=== PATIENT | female | born 1950 | race Caucasian/White ===

== ENCOUNTER 2023-06-30 14:52 | Outpatient (CLI) | payer MEDICARE, BC, SELFPAY ==
[2023-06-30 15:18] LABS: Basophils Absolute Auto 0.1 K/mm3 (0.0-0.1); Eosinophils Absolute Auto 0.1 K/mm3 (0-0.3); Eosinophils Percent Auto 2.7 % (0-4.4); Hematocrit 47.2 % (37.0-47.0); Hemoglobin 16.4 g/dL (12.0-15.0); Immature Granulocyte Absolute 0.02 K/mm3 (0.00-0.031); Immature Granulocyte Percent A 0.4 % (0-0.5); Lymphocytes Absolute Auto 0.96 K/mm3 (0.9-3.2); Lymphocytes Percent Auto 18.6 % (18.3-44.2); Mean Corpuscular HGB Conc 34.7 g/dl (32-36); Mean Corpuscular Volume 100.6 fl (80-100); Mean Platelet Volume 10.3 fl (7.4-10.4); Monocytes Absolute Auto 0.7 K/mm3 (0.1-0.6); Neutrophils Absolute Auto 3.3 K/mm3 (1.3-6.7); Neutrophils Percent Auto 63.3 % (45.5-73.1); Platelet Count Result 135 k/mm3 (150-375); Red Blood Count 4.69 M/mm3 (4.2-5.4); Red Cell Distribution Width 13.2 % (11.5-14.5); White Blood Count 5.2 K/mm3 (4.5-10.0)
[2023-06-30 16:41] LABS: Iron 107 ug/dL (37-170)
[2023-06-30 16:44] LABS: Alanine Aminotransferase 37 U/L (6-35); Albumin Level 4.4 g/dL (3.5-5.1); Alkaline Phosphatase 82 U/L (38-126); Anion Gap 5 mmol/L (8-16); Aspartate Amino Transferase 56 U/L (14-36); Bilirubin,Total 0.7 mg/dL (0.2-1.3); Blood Urea Nitrogen 13 mg/dL (7-17); Calcium 9.6 mg/dL (8.4-10.2); Carbon Dioxide 34 mmol/L (22-30); Chloride 99 mmol/L (98-107); Estimated Glomerular Filt Rate > 60; Glucose 114 mg/dL (65-110); Potassium 4.2 mmol/L (3.4-5.0); Sodium 138 mmol/L (137-145)
[2023-06-30 16:50] LABS: Percent Iron Saturation 30 % (20-50)
[2023-06-30 17:53] LABS: Folic Acid > 20.0 ng/mL (2.76->20); Vitamin B12 > 1000.0 pg/mL (239-931)
[2023-07-03 10:10] LABS: Methylmalonic Acid 130 nmol/L (87-318)
[2023-07-03 12:34] LABS: Erythropoietin (EPO) 39.2 mIU/mL (2.6-18.5)
[2023-07-05 15:31] LABS: CALR Exon 9 Mutation Not Detected (Not Detected); CSF3R Exon 14/17 Mutation Not Detected (Not Detected); JAK2 Exon 12 Mutation Not Detected (Not Detected); JAK2 V617F Mutation Not Detected (Not Detected); MPL Exon 10 Mutation Not Detected (Not Detected); Specimen Source Blood
== END 2023-06-30 14:53 | disposition home or self-care (01) ==
LOC: ANHLAB 14:56
PROVIDERS: PCP Internal Medicine; Visit Provider Internal Medicine Hematology & Oncology
DX: D75.1 Secondary polycythemia (principal); D69.59 Other secondary thrombocytopenia
CPT/HCPCS: 36415; 80053; 81219; 81270; 81279; 81339; 81479; 82607; 82668; 82728; 82746; 83540; 83550; 83921; 85025; 86023

== ENCOUNTER 2023-07-15 07:34 | Outpatient (CLI) | payer MEDICARE, BC, SELFPAY ==
--- NOTE | ~2023-07-15 | US_ITS ---
Abdominal Sonogram: Real-time sonographic imaging of the abdomen was performed. Clinical History: Secondary thrombocytopenia Findings: The liver appears echogenic, with no evidence of mass lesion or bile duct dilatation. Main portal vein demonstrates normal direction of flow. The spleen is normal in size without evidence of focal lesion. The gallbladder is partially distended with probable small gallstones. The common bile duct measures 5 mm. The visualized pancreas is unremarkable. There is a 3.7 cm aneurysm of the dist al abdominal aorta. The right kidney measures 11.0 cm in length and the left kidney measures 8.9 cm. There is no hydronephrosis or renal calculus. Impression: Diffuse fatty infiltration of the liver. 3.7 cm aneurysm of the distal abdominal aorta. Cholelithiasis. Reviewed, dictated and finalized at [facility]. Impression: Diffuse fatty infiltration of the liver. 3.7 cm aneurysm of the distal abdominal aorta. Cholelithiasis.
== END 2023-07-15 07:35 | disposition home or self-care (01) ==
PROVIDERS: PCP Internal Medicine; Visit Provider Internal Medicine Hematology & Oncology
DX: D69.59 Other secondary thrombocytopenia (principal); K80.20 Calculus of gallbladder without cholecystitis without obstruction; K76.0 Fatty (change of) liver, not elsewhere classified; I71.40 Abdominal aortic aneurysm, without rupture, unspecified
CPT/HCPCS: 76700

== ENCOUNTER 2023-12-11 12:13 | Outpatient (CLI) | payer MEDICARE, BC, SELFPAY ==
[2023-12-11 12:27] LABS: Basophils Percent Auto 0.7 % (0.2-1.2); Eosinophils Absolute Auto 0.1 K/mm3 (0-0.3); Eosinophils Percent Auto 2.2 % (0-4.4); Hematocrit 49.7 % (37.0-47.0); Hemoglobin 16.4 g/dL (12.0-15.0); Immature Granulocyte Absolute 0.01 K/mm3 (0.00-0.031); Immature Granulocyte Percent A 0.2 % (0-0.5); Lymphocytes Absolute Auto 0.83 K/mm3 (0.9-3.2); Lymphocytes Percent Auto 15.2 % (18.3-44.2); Mean Corpuscular Volume 102.9 fl (80-100); Mean Platelet Volume 9.9 fl (7.4-10.4); Monocytes Absolute Auto 0.7 K/mm3 (0.1-0.6); Monocytes Percent Auto 12.7 % (2.6-8.5); Neutrophils Absolute Auto 3.8 K/mm3 (1.3-6.7); Platelet Count Result 124 k/mm3 (150-375); Red Blood Count 4.83 M/mm3 (4.2-5.4); Red Cell Distribution Width 13.3 % (11.5-14.5); White Blood Count 5.5 K/mm3 (4.5-10.0)
[2023-12-11 12:32] LABS: Blood Urea Nitrogen 13 mg/dL (8-26); Carbon Dioxide 33 mmol/L (22-30); Chloride 98 mmol/L (98-109); Estimated Glomerular Filt Rate > 60; Glucose 146 mg/dL (70-105); Ionized Calcium (POC) 1.21 mmol/L (1.11-1.31); Potassium 4.1 mmol/L (3.5-4.9); Sodium 140 mmol/L (138-146)
[2023-12-11 16:35] LABS: Alanine Aminotransferase 23 U/L (6-35); Albumin Level 4.3 g/dL (3.5-5.1); Alkaline Phosphatase 70 U/L (38-126); Anion Gap 8 mmol/L (8-16); Aspartate Amino Transferase 43 U/L (14-36); Bilirubin,Total 0.9 mg/dL (0.2-1.3); Blood Urea Nitrogen 14 mg/dL (7-17); Calcium 9.8 mg/dL (8.4-10.2); Carbon Dioxide 33 mmol/L (22-30); Chloride 99 mmol/L (98-107); Estimated Glomerular Filt Rate > 60; Glucose 146 mg/dL (65-110); Potassium 4.2 mmol/L (3.4-5.0); Sodium 140 mmol/L (137-145)
== END 2023-12-11 12:14 | disposition home or self-care (01) ==
LOC: ANHLAB 12:16
PROVIDERS: PCP Internal Medicine; Visit Provider Internal Medicine Hematology & Oncology
DX: D75.1 Secondary polycythemia (principal)
CPT/HCPCS: 36415; 80047; 80053; 85025

== ENCOUNTER 2024-05-05 14:53 | Outpatient (CLI) | payer MEDICARE, BC, SELFPAY ==
[2024-05-05 15:05] LABS: Basophils Absolute Auto 0.1 K/mm3 (0.0-0.1); Basophils Percent Auto 0.9 % (0.2-1.2); Eosinophils Absolute Auto 0.1 K/mm3 (0-0.3); Eosinophils Percent Auto 2.4 % (0-4.4); Hematocrit 47.9 % (37.0-47.0); Hemoglobin 15.9 g/dL (12.0-15.0); Immature Granulocyte Absolute 0.01 K/mm3 (0.00-0.031); Immature Granulocyte Percent A 0.2 % (0-0.5); Lymphocytes Absolute Auto 1.06 K/mm3 (0.9-3.2); Lymphocytes Percent Auto 19.5 % (18.3-44.2); Mean Corpuscular HGB Conc 33.2 g/dl (32-36); Mean Corpuscular Hemoglobin 33.8 pg (26-34); Mean Corpuscular Volume 101.7 fl (80-100); Mean Platelet Volume 10.1 fl (7.4-10.4); Monocytes Absolute Auto 0.8 K/mm3 (0.1-0.6); Monocytes Percent Auto 15.3 % (2.6-8.5); Neutrophils Absolute Auto 3.4 K/mm3 (1.3-6.7); Neutrophils Percent Auto 61.7 % (45.5-73.1); Platelet Count Result 126 k/mm3 (150-375); Red Blood Count 4.71 M/mm3 (4.2-5.4); Red Cell Distribution Width 13.8 % (11.5-14.5); White Blood Count 5.4 K/mm3 (4.5-10.0)
== END 2024-05-05 14:54 | disposition home or self-care (01) ==
LOC: ANHLAB 14:55
PROVIDERS: PCP Internal Medicine; Visit Provider Internal Medicine Hematology & Oncology
DX: D75.1 Secondary polycythemia (principal)
CPT/HCPCS: 36415; 85025

== ENCOUNTER 2025-03-23 14:36 | Outpatient (CLI) | payer MEDICARE, BC, SELFPAY ==
--- OUTSIDE RECORDS SUMMARY | 2025-03-23 14:40 | XMS_ITS | Clinical Summary ---
Author Organization [facility] Address [address] [place] [id number] Care Team Providers Care Energy Management Specialist Name Role Phone Unavailable Primary Care Provider Unavailabl e Social History Tobacco Use Types Packs/Day Years Used Date Smoking Tobacco: Never Assessed Comments Unknown Sex and Gender Information Value Date Recorded Sex Assigned at Not on file Legal Sex Female 8:01 PM CDT Gender Identity Not on file Sexual Orientation Not on file Plan of Treatment Health Maintenance Due Date Last Done Comments Colorectal Cancer Screening Colonoscopy (10 Years) 1950 Hepatitis C 1967 DTaP, Tdap and Td Vaccines ( 1 - Tdap) 1968 Pneumococcal Vaccine: 50+ Ye ars (1 of 1 - PCV) 1999 Zoster Vaccines (1 of 2) 1999 Dexa Scan (General) 2014 RSV Immunization or 60+ Years (1 - 1-dose 75+ series) 2024 COVID-19 Vaccine ( - 2023-2 5 season) 2024 Meningococcal B Vaccine Aged Out No l onger eligible based on patient's age to complete this topic Meningococcal Vaccine Aged Out No chetna felicita eligible based on patient's age to complete this topic RSV Immunizations Under 20 Months Aged Out No longer eligible based on patient's age to complete this topic
--- OUTSIDE RECORDS SUMMARY | 2025-03-23 14:41 | XMS_ITS | Referral Summary ---
Author Organization [facility] [address] [place] [id number] Care Team Providers Care Purchasing Intern Name Role Phone Reinaldo Espinosa MD Primary Care Provider [phone] Yannick Santiago MD Unavailable Encounters Date Type Department Care Team Description 01/11/2025 8:10 AM WEATHER ANCHOR - 01/12/2025 1:55 PM WEATHER ANCHOR [place] [address] Yannick Santiago MD Leg pain Discharge Disposition: Discharge to home or self care 01/11/2025 10:30 AM WEATHER ANCHOR - 01/11/2025 12:30 PM [facility] [address] [place] [address] Yannick Santiago MD ANGIOGRAPHY - BILATERAL EXTREMITY S&I [id number] from Last 3 Months Allergies Active Allergy Reactions Criticality Noted Date Comments Codeine Mental status changes Low Reaction: CONFUSION, , Propoxyphene-Acetami nophen Stomach upset Medium Reaction: GI UPSET, , Medications clopidogreL (PLAVIX) 75 mg tablet Take 1 tablet (75 mg total) by mouth every morning Active metoprolol tartrate (LOPRESSOR) 25 mg immediate release tablet Take 1 tablet (25 mg total) by mouth 2 (two) times a day Active atorvastatin (LIPITOR) 10 mg tablet Take 1 tablet (10 mg total) by mouth nightly Active meclizine (ANTIVERT) 25 mg tablet Take 1 tablet (25 mg total) by mouth daily Active azaTHIOprine (IMURAN) 50 mg tablet Take 2 tablets (100 mg total) by mouth every morning Active vitamin B complex capsule Take 1 capsule by mouth daily Active multivitamin tabletIndicatio ns:Vitamin Deficiency Prevention Take 1 tablet by mouth daily Active cholecalciferol (VITAMIN D-3) 2000 unit tablet Take 1 tablet (2,000 Units total) by mouth daily Active ALPRAZolam (XANAX) 0.5 mg tablet Take 1 tablet (0.5 mg total) by mouth 2 (two) times a day as needed for sleep or anxiety 0 Active albuterol HFA (PROVENTIL HFA,VENTOLIN HFA,PROAIR HFA) 90 mcg/actuation inhaler Inhale 2 puffs every 6 (six) hours as needed for shortness of breath or wheezing Active nitroglycerin (NITROSTAT) 0.[address] 1 tablet (0.4 mg total) under the tongue every 5 (five) minutes as needed for chest pain 5 Active acetaminophen (TYLENOL) 500 mg tablet Take 1 tablet (500 mg total) by mouth every 6 (six) hours as needed for pain Active aspirin 81 mg enteric coated tabletIndicatio ns:cardiovascul ar disease Take 1 tablet (81 mg total) by mouth daily 30 tablet 11 4 08/26/20 25 Active budesonide-form oteroL (SYMBICORT) 160-4.5 mcg/actuation inhaler Inhale 2 puffs 2 (two) times a day [address] (PROTONIX) 40 mg EC tablet Take 1 tablet (40 mg total) by mouth daily 5 Active Active Problems Problem Noted Date Diagnosed Date PAD (peripheral artery disease) 01/11/2025 Leg pain 12/20/2024 CAD in [place] artery 08/25/2024 CAD (coronary artery disease) 08/24/2024 Abnormal stress test 08/18/2024 Malignant neoplasm of lung 04/11/2015 Lung mass 11/01/2013 Stenosis of carotid artery 01/04/2011 Social History Tobacco Use Types Packs/Day Years Used Date Smoking Tobacco: Former Smokeless Tobacco: Never Tobacco Cessation:Counseling Given: Not Answered AUDIT-C Answer Date Recorded Q1: How often do you have a drink containing alcohol? Never 01/11/2025 Q2: How many drinks containi ng alcohol do you have on a typical day when you are drinking? Patient does not drink Q3: How often do you have si x or more drinks on one occasion? Never 01/11/2025 Personal Safety Answer Date Recorded Have you ever been in or are you currently in a harmful physical or emotional relationship or is someone making you feel afraid or unsafe? Denies 01/11/2025 Comments No Sex and Gender Information Value Date Recorded Sex Assigned at Not on file Legal Sex Female 1:58 AM WEATHER ANCHOR Gender Identity Not on file Sexual Orientation Not on file Last Filed Vital Signs Vital Sign Reading Time Taken Comments Blood Pressure 149/93 01/12/2025 8:29 AM WEATHER ANCHOR Pulse 73 01/12/2025 8:29 AM WEATHER ANCHOR Temperature 37.2 C (99 F) 01/12/2025 8:29 AM WEATHER ANCHOR Respiratory Rate 19 01/12/2025 8:29 AM WEATHER ANCHOR Oxygen Saturation 90% 01/12/2025 8:29 AM WEATHER ANCHOR Inhaled Oxygen Concentration - - Weight 93.9 kg (207 lb 0.2 oz) 01/12/2025 5:19 A M WEATHER ANCHOR Height 175.3 cm (5' 9 ) 01/11/2025 8:19 AM WEATHER ANCHOR Body Mass Index 30.57 01/11/2025 8:19 AM WEATHER ANCHOR Plan of Treatment Not on file Medical Devices Implanted Type Area Customer Care Professional Device Identifier Shelf Expiration Date Model / Serial / Lot [employer] Stent Drug Eluting S Megatron Mr [id number] - [id number] Implanted:Qty: 1 on 08/24/2024 by Yannick Santiago MD at [facility] [employer] 06/02/2025 [id number] / / [id number] Procedures Procedure Name Priority Date/Time Associated Diagnosis Comments CTA ABDOMINAL AORTA AND BILATERAL ILIOFEMORAL RUNOFF IP Routine 01/12/2025 7:51 AM WEATHER ANCHOR EGFR Routine 01/12/2025 5:57 AM WEATHER ANCHOR BASIC METABOLIC PANEL Routine 01/12/2025 5:57 AM WEATHER ANCHOR PERIPHERAL RUN OFF CATH Routine 01/11/2025 11:21 AM WEATHER ANCHOR Leg pain ECG 12-LEAD Routine 01/11/2025 8:43 AM WEATHER ANCHOR from Last 3 Months Results * CTA Abdominal Aorta And Bilateral Iliofemoral Runoff (01/12/2025 7:51 AM WEATHER ANCHOR) Anatomical Region Laterality Modality Body Bilateral Computed Tomogra phy 01/13/2025 9:22 AM WEATHER ANCHOR Impressions 01/13/2025 9:22 AM WEATHER ANCHOR 1. Right lower extremity: Right iliac stent occluded numerous iliac collaterals reconstitute common femoral and profunda arteries which also collateralize the distal SFA which is occluded from its origin to near the adductor canal level. Single vessel runoff via the posterior tibial artery. 2. Left lower extremity: Similar changes in the anterior tibial and peroneal arteries as on the right. Posterior tibial artery is less well opacified than on the right without occlusions with ankle crossing. Electronically signed by: Carlos Enrique Rodriguez M.D. Narrative 01/13/2025 9:22 AM WEATHER ANCHOR EXAMINATION: CT ANGIOGRAPHY OF THE ABDOMEN, PELVIS, AND LOWER EXTREMITIES WITH CONTRAST HISTORY: Peripheral artery disease TECHNIQUE: CT angiography of the abdomen, pelvis, and lower extremities was performed following the uneventful intravenous administration of 119 ml Optiray-350. Vascular 3D images were generated on a dedicated workstation and also reviewed. FINDINGS: No prior studies are available for comparison. VASCULAR FINDINGS: Abdominal Aorta and Branches: Celiac axis: 70-80% stenosis SMA: 50-60% stenosis VALERIA: 70-80% stenosis Right renal vessels: 70% ostial stenosis Left renal vessels: no significant stenosis Infrarenal aorta: Aneurysm with mural thrombus and dense calcification as noted.. Pelvic Vessels: R. Common iliac artery: no significant stenosis R. External iliac artery: Occlusion including the stent noted. R. Internal iliac artery: no significant stenosis L. Common iliac artery: no significant stenosis L. External iliac artery: no significant stenosis L. Internal iliac artery: no significant stenosis Right Lower Extremity: R. Common femoral artery: Reconstituted from collaterals R. Profunda femoris artery: Reconstituted from collaterals R. Superficial femoral artery: Occluded in the groin to the abductor canal with some retrograde opacification distally due to collaterals. R. Popliteal artery: no significant stenosis R. Anterior tibial artery: Occludes distally R. Tibioperoneal trunk: no significant stenosis R. Posterior tibial artery: no significant stenosis crosses the ankle R. Peroneal artery: Atretic R. Dorsalis pedis artery: Occluded Left Lower Extremity: L. Common femoral artery: no significant stenosis L. Profunda femoris artery: no significant stenosis L. Superficial femoral artery: no significant stenosis L. Popliteal artery: no significant stenosis L. Anterior tibial artery: Occludes distally L. Tibioperoneal trunk: no significant stenosis L. Posterior tibial artery: no significant stenosis L. Peroneal artery: Atretic distally L. Dorsalis pedis artery: Occluded NON-VASCULAR FINDINGS: Lung bases are unremarkable. The liver, spleen, adrenal glands, pancreas, and kidneys are unremarkable. There is small calculi and biliary sludge layering in the gallbladder. There are no acute gallbladder wall changes. There is a small abdominal aortic aneurysm with mural thrombus in the infrarenal level maximum diameter 34 mm bowel pattern is unremarkable. There are scattered sigmoid diverticula. Procedure Note Carlos Enrique Rodriguez MD - 01/13/2025 EXAMINATION: CT ANGIOGRAPHY OF THE ABDOMEN, PELVIS, AND LOWER EXTREMITIES WITH CONTRAST HISTORY: Peripheral artery disease TECHNIQUE: CT angiography of the abdomen, pelvis, and lower extremities was performed following the uneventful intravenous administration of 119 ml Optiray-350. Vascular 3D images were generated on a dedicated workstation and also reviewed. FINDINGS: No prior studies are available for comparison. VASCULAR FINDINGS: Abdominal Aorta and Branches: Celiac axis: 70-80% stenosis SMA: 50-60% stenosis VALERIA: 70-80% stenosis Right renal vessels: 70% ostial stenosis Left renal vessels: no significant stenosis Infrarenal aorta: Aneurysm with mural thrombus and dense calcification as noted.. Pelvic Vessels: R. Common iliac artery: no significant stenosis R. External iliac artery: Occlusion including the stent noted. R. Internal iliac artery: no significant stenosis L. Common iliac artery: no significant stenosis L. External iliac artery: no significant stenosis L. Internal iliac artery: no significant stenosis Right Lower Extremity: R. Common femoral artery: Reconstituted from collaterals R. Profunda femoris artery: Reconstituted from collaterals R. Superficial femoral artery: Occluded in the groin to the abductor canal with some retrograde opacification distally due to collaterals. R. Popliteal artery: no significant stenosis R. Anterior tibial artery: Occludes distally R. Tibioperoneal trunk: no significant stenosis R. Posterior tibial artery: no significant stenosis crosses the ankle R. Peroneal artery: Atretic R. Dorsalis pedis artery: Occluded Left Lower Extremity: L. Common femoral artery: no significant stenosis L. Profunda femoris artery: no significant stenosis L. Superficial femoral artery: no significant stenosis L. Popliteal artery: no significant stenosis L. Anterior tibial artery: Occludes distally L. Tibioperoneal trunk: no significant stenosis L. Posterior tibial artery: no significant stenosis L. Peroneal artery: Atretic distally L. Dorsalis pedis artery: Occluded NON-VASCULAR FINDINGS: Lung bases are unremarkable. The liver, spleen, adrenal glands, pancreas, and kidneys are unremarkable. There is small calculi and biliary sludge layering in the gallbladder. There are no acute gallbladder wall changes. There is a small abdominal aortic aneurysm with mural thrombus in the infrarenal level maximum diameter 34 mm bowel pattern is unremarkable. There are scattered sigmoid diverticula. IMPRESSION: 1. Right lower extremity: Right iliac stent occluded numerous iliac collaterals reconstitute common femoral and profunda arteries which also collateralize the distal SFA which is occluded from its origin to near the adductor canal level. Single vessel runoff via the posterior tibial artery. 2. Left lower extremity: Similar changes in the anterior tibial and peroneal arteries as on the right. Posterior tibial artery is less well opacified than on the right without occlusions with ankle crossing. Electronically signed by: Carlos Enrique Rodriguez M.D. Yannick Santiago MD [facility] [place] PROCEDURES Final Result * eGFR (01/12/2025 5:57 AM WEATHER ANCHOR) eGFR 67 >=60 mL/min/1. 73 m2 Comment: Interpretive Data Reference Interval Normal >/= 90 mL/min/1.73m2 Mildly decreased* 60 - 89 mL/min/1.73m2 Mildly to moderately decreased 45 - 59 mL/min/1.73m2 Moderately to severely decreased 30 - 44 mL/min/1.73m2 Severely decreased 15 - 29 mL/min/1.73m2 Kidney Failure < 15 mL/min/1.73m2 *Relative to young adult level Estimated glomerular filtration rate is determined by the 2020 CKD-EPI equation recommended by the National Kidney Foundation (A Unifying Approach to GFR Estimation: Recommendations of the NKF-ASK Task Force on Reassessing the Inclusion of Race in Diagnosing Kidney Disease, JASN 2020). The CKD-EPI equation should not be used for patients with unstable renal function and has not been validated in children and those over 70. Current interpretive data was last reviewed 2021. Blood 01/12/2025 5:57 AM WEATHER ANCHOR 01/12/2025 6:10 AM WEATHER ANCHOR us Yannick Santiago MD LAB BLOOD ORDERABLES Final Resul t [facility] [id number] [address] Department [place] [address] * Basic metabolic panel (01/12/2025 5:57 AM WEATHER ANCHOR) Sodium 138 135 - 145 mmol/L Potassium, pl 3.9 3.3 - 4.9 mmol/L [facility] Chloride 100 97 - 110 mmol/L [facility] CO2 28 22 - 32 mmol/L [facility] Anion gap 10 2 - 15 mmol/L [facility] BUN 15 6 - 25 mg/dL [facility] Creatinine 0.90 0.60 - 1.10 mg/dL [facility] Glucose 133 70 - 199 mg/dL [facility] Comment: Interpretive Data Fasting glucose >/= 126 mg/dl is diagnostic for diabetes. Fasting is defined as no caloric intake for at least 8 hours. Fasting glucose between 100 mg/dl to 125 mg/dl is diagnostic of prediabetes. In a patient with classic symptoms of hyperglycemia or hyperglycemic crisis, a random glucose >/= 200 mg/dl is diagnostic for diabetes. In the absence of unequivocal hyperglycemia, results should be confirmed by repeat testing. The classification and Diagnosis of Diabetes Diabetes Care 202; 46: S19-S40. Current interpretive data was last revised 2022. Calcium 9.2 8.5 - 10.3 mg/dL [facility] Blood 01/12/2025 5:57 AM WEATHER ANCHOR 01/12/2025 6:10 AM WEATHER ANCHOR us Yannick Santiago MD LAB BLOOD ORDERABLES Final Resul t [facility] [id number] [address] Department [place] [address] * PERIPHERAL RUN OFF CATH (01/11/2025 11:21 AM WEATHER ANCHOR) Anatomical Region Laterality Modality X-Ray Angiograph y 01/11/2025 Narrative 01/12/2025 4:04 PM WEATHER ANCHOR [employer] Job ID: [id number] [employer] Document ID: [id number] Dictated date/time: [id number] BRIEF CLINICAL HISTORY This is a woman who was born on 1950. She has known CAD and PAD. Underwent stenting of the iliac arteries bilaterally in the past. Presenting with a severe rest pain in the right leg. It is noted that the right iliac artery is totally occluded that was noted on cardiac cath performed in August 2024, and today she presents for further AIF and intervention. She is aware of the risks, benefits of the procedure which include, but not limited to an unsuccessful procedure, dissection, bleeding, limb loss, nephropathy, and . PROCEDURE Informed consent was obtained. The patient was brought to the cardiac lab in a postabsorptive state. I administered Versed and fentanyl to sedate her. Trained dedicated personnel is available in the room to monitor for conscious sedation. The sedation time was 56 minutes. The right and left groins were prepped and draped in the usual sterile manner. Lidocaine 1% plain was used for anesthesia. Duplex imaging was used to identify the left common femoral artery and a 5-Tanzanian short sheath was inserted. Then we inserted a fascial pick to perform injection from the aorta. We noted that the left iliac and femoral arteries are patent; however, there was total occlusion from the origin of the right common iliac artery with reconstitution via the internal iliac artery at the femoral level. However, the flow in the femoral artery was very limited, the anatomy of the femoral artery is not clear. Using duplex imaging to identify the right common femoral artery and inserted a using a micropuncture a 5-Tanzanian short sheath. We made permanent record of all duplex images. We were able to go up into the aorta via the right sheath with the [place] Advantage catheter and the angled tipped glide catheter. However, it appeared that we were not in the aortal lumen. We made multiple attempts to recross and get to the lumen. By pressure tracing, it appeared that we were not in the lumen and then we put angiography via the pigtail that came from the left and showed that the right iliac artery is still occluded. At this point, we decided to stop the procedure. She tolerated the procedure well. No apparent complication. The sheaths will be pulled manually at this time. FINAL RECOMMENDATION Will obtain CT angiography of the abdomen up to pelvis and femoral arteries for further anatomical assessment and exploration of other revascularization methods. Thank you very much for allowing me to participate in the care of your patient. If I can be of further assistance, please do not hesitate to contact me. Job ID/Internal Job ID: [id number] us Yannick Santiago MD CV CARDIAC CATH PROCEDURES Final Result * ECG 12 lead (01/11/2025 8:43 AM WEATHER ANCHOR) 01/11/2025 8:43 AM WEATHER ANCHOR Narrative [facility] - 01/11/2025 9:35 AM WEATHER ANCHOR Vent Rate: 64 bpm RR Interval: 935 msec UT Interval: 260 msec QRS Duration: 150 msec QT Interval: 461 msec QTC Interval: 470 msec P-R-T [place]: 104 - -53 - 100 degrees IMPRESSION: ELECTRONIC ATRIAL PACEMAKER RIGHT BUNDLE BRANCH BLOCK LEFT ANTERIOR FASCICULAR BLOCK LEFT VENTRICULAR HYPERTROPHY AND ST-T CHANGE POSSIBLE SEPTAL MYOCARDIAL INFARCTION , OF INDETERMINATE AGE ABNORMAL ECG NO CHANGE FROM PREVIOUS TRACING NOTED Electronically Signed By: Jerson Gonzalez MD us Yannick Santiago MD ECG ORDERABLES Final Result [facility] from Last 3 Months Insurance [place] [address] MEDICARE BLUE [employer]AL [employer] Advance Directives For more information, please contact: [phone] * Full Code (Latest Code Status on File) Date Activated Date Inactivated Comments 01/11/2025 1:27 PM 01/12/2025 6:00 PM * Full Code Date Activated Date Inactivated Comments 08/24/2024 2:31 PM 08/25/2024 7:19 PM Care Teams Purchasing Intern Relationship Specialty Start Date End Date Reinaldo Espinosa MD PCP - General 03/25/17 [place] [id number] [address] Consulting Physician Cardiovascular Disease 08/25/24
--- OUTSIDE RECORDS SUMMARY | 2025-03-23 14:41 | XMS_ITS | Clinical Summary ---
Author Organization [facility] Physician Of [facility] [address] [place] [phone] Care Team Providers Care Wool Spotter Name Role Phone Reinlado Espinosa MD Primary Care Provider [phone] Yannick Santiago MD Unavailable Allergies Active Allergy Reactions Criticality Noted Date [...] disease) 01/11/2025 Leg pain 12/20/2024 CAD in [place] artery 08/25/2024 CAD (coronary artery disease) 08/24/2024 Abnormal stress test 08/18/2024 Malignant neoplasm of lung 04/11/2015 Lung mass 11/01/2013 Stenosis of carotid artery 01/04/2011 Encounters Date Type Department Care Team Description 01/11/2025 10:30 AM BLOCK MECHANIC - 01/11/2025 12:30 PM [facility] Surgery [facility] Cardiac Catheterization Lab [address] [place] [address] Yannick Santiago MD ANGIOGRAPHY - BILATERAL EXTREMITY S&I [id number] 01/11/2025 8:10 AM BLOCK MECHANIC - 01/12/2025 1:55 PM [facility] Hospital Encounter [address] [address] Yannick Santiago MD Leg pain Discharge Disposition: Discharge to home or self care from Last 3 Months Surgical History Surgery Date Site/Laterality Comments CORONARY ARTERY BYPASS GRAFT 11/17/2008 - 11/16/2009 x3 INSERT / REPLACE / REMOVE PACEMAKER 11/17/2008 - 11/16/2009 LUNG LOBECTOMY Bilateral 1999 (right), 2008 (left) - lung cancer HYSTERECTOMY COLONOSCOPY BREAST SURGERY Right fatty tumor CAROTID ENDARTERECTOMY CARDIAC CATHETERIZATION 01/11/2025 Right Procedure: ANGIOGRAPHY - BILATERAL EXTREMITY S&I [id number]; Surgeon: Yannick Santiago MD; Location: [facility]IAC [facility]; Service: Cardiovascular; Laterality: Right; Medical History Medical History Date Comments Cancer (HCC) Lung Motion sickness Hypertension Lung disease COPD (chronic obstructive pu lmonary disease) (HCC) 07/2024 GERD (gastroesophageal reflux disease) Infectious viral hepatitis autoi mmune hepatitis 2000 Abnormal stress test On home oxygen therapy 2 Liters via n/c with activity Arthritis Social History Tobacco Use Types Packs/Day Years [...] on file Legal Sex Female 1:58 AM BLOCK MECHANIC Gender Identity Not on file Sexual Orientation Not on file Obstetrics History Last Filed Vital Signs Vital Sign Reading Time Taken Comments Blood Pressure 149/93 01/12/2025 8:29 AM BLOCK MECHANIC Pulse 73 01/12/2025 8:29 AM BLOCK MECHANIC Temperature 37.2 C (99 F) 01/12/2025 8:29 AM BLOCK MECHANIC Respiratory Rate 19 01/12/2025 8:29 AM BLOCK MECHANIC Oxygen Saturation 90% 01/12/2025 8:29 AM BLOCK MECHANIC Inhaled Oxygen Concentration - - Weight 93.9 kg (207 lb 0.2 oz) 01/12/2025 5:19 A M BLOCK MECHANIC Height 175.3 cm (5' 9 ) 01/11/2025 8:19 AM BLOCK MECHANIC Body Mass Index 30.57 01/11/2025 8:19 AM BLOCK MECHANIC Plan of Treatment Health Maintenance Due Date Last Done Comments Colon Cancer Screening-Colonoscopy 1950 Depression Screening 1950 Hepatitis C Screening 1950 Osteoporosis Screening-Bone Density Scan 1949 Hepatitis B Screening 1967 Zoster Vaccine (1 of 2) 1968 Well Visit 65+ 2014 Influenza Vaccine (Season Ended) 2025 08/25/2020, 09/30/2019, 09/07/2018, Additional history exists Fall Risk Assessment 01/12/2026 01/12/2025 DTaP/Tdap/Td Vaccine (2 - Td or Tdap) 06/10/2026 06/10/2016 Pneumococcal vaccine 65+ Completed 11/05/2016, 12/18 Medical Devices Implanted Type Area Sourcing Consultant Device Identifier Shelf Expiration Date Model / Serial / Lot New KCBX Stent Drug Eluting S [facility] [id number] - [id number] Implanted:Qty: 1 on 08/24/2024 by Yannick Santiago MD at [facility] New KCBX 06/02/2025 [id number] / / [id number] Procedures Procedure Name Priority Date/Time Associated Diagnosis Comments CTA ABDOMINAL AORTA AND BILATERAL ILIOFEMORAL RUNOFF IP Routine 01/12/2025 7:51 AM BLOCK MECHANIC EGFR Routine 01/12/2025 5:57 AM BLOCK MECHANIC BASIC METABOLIC PANEL Routine 01/12/2025 5:57 AM BLOCK MECHANIC PERIPHERAL RUN OFF CATH Routine 01/11/2025 11:21 AM BLOCK MECHANIC Leg pain ECG 12-LEAD Routine 01/11/2025 8:43 AM BLOCK MECHANIC from Last 3 Months Results * CTA Abdominal Aorta And Bilateral Iliofemoral Runoff (01/12/2025 7:51 AM BLOCK MECHANIC) Anatomical Region Laterality Modality Body Bilateral Computed Tomogra phy 01/13/2025 9:22 AM BLOCK MECHANIC Impressions 01/13/2025 9:22 AM BLOCK MECHANIC 1. Right lower extremity: Right iliac stent [...] Enrique Rodriguez M.D. Narrative 01/13/2025 9:22 AM BLOCK MECHANIC EXAMINATION: CT ANGIOGRAPHY OF THE ABDOMEN, PELVIS, [...] Electronically signed by: Carlos Enrique Rodriguez M.D. us Yannick Santiago MD IMG CT PROCEDURES Final Result * eGFR (01/12/2025 5:57 AM BLOCK MECHANIC) eGFR 67 >=60 mL/min/1. 73 m2 Comment: [...] of Race in Diagnosing Kidney Disease, JASN 202). The CKD-EPI equation should not be used for patients with unstable renal function and has not been validated in children and those over 70. Current interpretive data was last reviewed 2021. Blood 01/12/2025 5:57 AM BLOCK MECHANIC 01/12/2025 6:10 AM BLOCK MECHANIC us Yannick Santiago MD LAB BLOOD ORDERABLES Final Resul t Performing Organization Address [facility] Co de Phone Number MEMO TORRES [phone] [address] Department [place] [address] * Basic metabolic panel (01/12/2025 5:57 AM BLOCK MECHANIC) Sodium 138 135 - 145 mmol/L Potassium, pl 3.9 3.3 - 4.9 mmol/L [facility] Chloride 100 97 - 110 mmol/L [facility] CH CO2 28 22 - 32 mmol/L [facility] CH Anion gap 10 2 - 15 mmol/L [facility] CH BUN 15 6 - 25 mg/dL [facility] Creatinine 0.90 0.60 - 1.10 mg/dL [facility] Glucose 133 70 - 199 mg/dL [facility] Comment: Interpretive Data Fasting glucose >/= 126 [...] 2022. Calcium 9.2 8.5 - 10.3 mg/dL [facility] Blood 01/12/2025 5:57 AM BLOCK MECHANIC 01/12/2025 6:10 AM BLOCK MECHANIC Yannick Santiago MD LAB BLOOD ORDERABLES Final Resul t Performing Organization Address City/[facility]/ZIP Co de Phone Number MEMO [facility] [phone] [address] [place] [address] * PERIPHERAL RUN OFF CATH (01/11/2025 11:21 AM BLOCK MECHANIC) Anatomical Region Laterality Modality X-Ray Angiograph y 01/11/2025 Narrative 01/12/2025 4:04 PM BLOCK MECHANIC View and Chew Job ID: [id number] View and Chew Document ID: [id number] Dictated date/time: [id number] BRIEF CLINICAL HISTORY This is a woman [...] the left common femoral artery and a 5-Jordanian short sheath was inserted. Then we inserted [...] and inserted a using a micropuncture a 5-Jordanian short sheath. We made permanent record of all duplex images. We were able to go up into the aorta via the right sheath with the [employer]age catheter and the angled tipped glide [...] to contact me. Job ID/Internal Job ID: [id number] us Yannick Santiago MD CV CARDIAC CATH PROCEDURES Final Result * ECG 12 lead (01/11/2025 8:43 AM BLOCK MECHANIC) 01/11/2025 8:43 AM BLOCK MECHANIC Narrative [facility] - 01/11/2025 9:35 AM BLOCK MECHANIC Vent Rate: 64 bpm RR Interval: 935 msec IA Interval: 260 msec QRS Duration: 150 msec QT Interval: 461 msec QTC Interval: 470 msec P-R-T Monson: 104 - -53 - 100 degrees IMPRESSION: ELECTRONIC ATRIAL PACEMAKER RIGHT BUNDLE BRANCH BLOCK LEFT ANTERIOR FASCICULAR BLOCK LEFT VENTRICULAR HYPERTROPHY AND ST-T CHANGE POSSIBLE SEPTAL MYOCARDIAL INFARCTION , OF INDETERMINATE AGE ABNORMAL ECG NO CHANGE FROM PREVIOUS TRACING NOTED Electronically Signed By: Jerson Gonzalez MD us Yannick Santiago MD ECG ORDERABLES Final Result [facility] from Last 3 Months Insurance MEDICARE [facility] MEDICARE [place] [employer] Advance Directives For more information, please contact: [phone] * Full Code (Latest Code Status on File) Date Activated Date Inactivated Comments 01/11/2025 1:27 PM 01/12/2025 6:00 PM * Full Code Date Activated Date Inactivated Comments 08/24/2024 2:31 PM 08/25/2024 7:19 PM Care Teams Wool Spotter Relationship Specialty Start Date End Date Reinaldo Espinosa MD PCP - General 03/25/17 [place] [id number] [address] Consulting Physician Cardiovascular Disease 08/25/24
--- OUTSIDE RECORDS SUMMARY | 2025-03-23 14:41 | XMS_ITS | Continuity of Care Document ---
Author Organization [facility] Address [address] [place] [address] [place] [address] Phone Care Team Providers Care Blueberry Grower Name Role Phone Logan Harman Unavailable Unavailable Advance Directives Directive Yes / No Effective Date File Name No Information Encounters Encounter Description Practice Location Reason(s) For Visit Diagnoses Date Provider Providers Copied on Encounter [facility], [address], [place], [place], [id number], [place] tel:[phone] [facility] No Information Kimani Ford. [address] [place], [address], [place]. tel:[phone] Family History Family Member Type Diagnosis Age At Onset No Information Payers Payer name Insurance type Covered libertarian ID Authoriza tion(s) No Information Social History [...]
--- OUTSIDE RECORDS SUMMARY | 2025-03-23 14:41 | XMS_ITS ---
Author Organization [facility] Physician Of [facility] [address] [place] [phone] Care Team Providers Care Proposal Coordinator Name Role Phone Reinaldo Espinosa MD Primary Care Provider [phone] Yannick Santiago MD Unavailable Active Problems Problem Noted Date Diagnosed Date PAD (peripheral artery disease) 01/11/2025 Leg pain 12/20/2024 CAD in [place] artery 08/25/2024 CAD (coronary artery disease) 08/24/2024 Abnormal stress test 08/18/2024 Malignant neoplasm of lung 04/11/2015 Lung mass 11/01/2013 Stenosis of carotid artery 01/04/2011 Current Treatment and Therapy Plans No current plan information found. Past Treatment and Therapy Plans No past plan information found. Lifetime Dose Tracking * Chemical Lifetime Dose Automatic Entry Manual Entr y Air kerma at the reference point (Ka,r) 3,417 mGy 0 mGy 3,417 mGy
--- OUTSIDE RECORDS SUMMARY | 2025-03-23 14:41 | XMS_ITS | CONTINUITY OF CARE DOCUMENT ---
Author Name becka jovel Address Unknown Organization [facility] Address [address] [address] [place] [address] Phone [phone] Care Team Providers Care Map Compiler Name Role Phone Yannick Santiago MD Unavailable [phone] Reinaldo Espinosa MD Unavailable Reinaldo Espinosa MD Unavailable [phone] PROBLEMS Condition Status Date Provider Notes CAD S/P CABG; 50-60% LM, 40% LAD, 80% RCA 03/2009 active Alfonso Al CHEST PAIN-04/28 NUC NL-03/25 NUC ISCHEMIA completed - Alfonso Al Dyslipidemia active Alfonso Al RENAL ARTERY STENOSIS 70% LEFT APRIL 2009 active Yannick Santiago MD PALPITATIONS-06/25 HOLTER SR HR 31-116 MOBITZ 2 CHB PVC-PAC completed - Alfonso Al SICK SINUS SYNDROME active Alfonso Magana rg Hypertension active Alfonso Al CAROTID ARTERY DISEASE S/P R CEA 02/25 active Yannick Santiago MD Family History of Sudden Cardiac : completed - Yannick Santiago MD Edema completed - Alfonso Al Dual chamber pm gen change - Biotronik 02/2016 active Yannick Santiago MD Tobacco use, quit active Alfonso Al Leg pain, bilateral completed - Alfonso Al Sleep apnea, obstructive active Alfonso richter PVD - B/L ILIAC STENTS 01/2017 active Alfonso Al S/P CABG x3 (BOOTH-LAD, SVG-OM1, SVG-RCA) active Alfonso [facility] Obesity active Alfonso [facility] Lung cancer active [facility] Back pain active Mariann [facility] 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 active 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 Shortness of breath active Mika Solist ENCOUNTERS Date Type Provider Location Encounter Diag nosis - In-person encounter Office Visit Yannick Santiago MD [place] [facility] - In-person encounter Office Visit Yannick Santiago MD [facility] Office - In-person encounter Office Visit Yannick Santiago MD [facility] - In-person encounter Office Visit Yannick Santiago MD [place] [facility] Shortness of breath - In-person encounter Office Visit Yannick Santiago MD [place] [facility] - In-person encounter Office Visit Yannick Santiago MD [place] [facility] 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 - In-person encounter Office Visit Yannick Santiago MD [place] [facility] Back pain - In-person encounter Office Visit Yannick Santiago MD [place] [facility] - In-person encounter Office Visit Yannick Santiago MD [facility] Office - In-person encounter Office Visit Yannick Santiago MD [place] [facility] - In-person encounter Office Visit Yannick Santiago MD [place] [facility] CHEST PAIN-04/28 NUC NL-03/25 NUC ISCHEMIAPALPITATIONS-06/25 HOLTER SR HR 31-116 MOBITZ 2 CHB PVC-PACHypertensionEdemaL eg pain, bilateralPVD - B/L ILIAC STENTS 01/2017Lung cancer - In-person encounter Office Visit Yannick Santiago MD [place] [facility] Dual chamber pm gen change - Biotronik 02/2016 - In-person encounter Office Visit Yannick Santiago MD [place] [facility] - In-person encounter Office Visit Yannick Santiago MD [place] [facility] CAD S/P CABG; 50-60% LM, 40% LAD, 80% RCA 03/2009SICK SINUS SYNDROMEDual chamber pm gen change - Biotronik 02/2016S/P CABG x3 (BOOTH-LAD, SVG-OM1, SVG-RCA)Obesity - In-person encounter Office Visit Yannick Santiago MD [place] [facility] CAROTID ARTERY DISEASE S/P R CEA 02/25Sleep apnea, obstructivePVD - B/L ILIAC STENTS 01/2017 - In-person encounter Office Visit Yannick Santiago MD [place] [facility] DyslipidemiaFamily History of Sudden Cardiac : - In-person encounter Office Visit Yannick Santiago MD [place] [facility] SICK SINUS SYNDROMETobacco use, quit - In-person encounter Office Visit Yannick Santiago MD [place] [facility] - In-person encounter Office Visit Yannick Santiago MD [place] [facility] - In-person encounter Office Visit Yannick Santiago MD [place] [facility] - In-person encounter Office Visit Yannick Santiago MD [place] [facility] Hypertension - In-person encounter Office Visit Yannick Santiago MD [place] [facility] - In-person encounter Office Visit Yannick Santiago MD [place] [facility] Hypertension - In-person encounter Office Visit Yannick Santiago MD [place] [facility] - In-person encounter Office Visit Indra Alba MD [place] [facility] SICK SINUS SYNDROME - In-person encounter Office Visit Yannick Santiago MD [place] [facility] - In-person encounter Office Visit Yannick Santiago MD [place] [facility] - In-person encounter Office Visit Yannick Santiago MD [place] [facility] SICK SINUS SYNDROME - In-person encounter Office Visit Yannick Santiago MD [place] [facility] - In-person encounter Office Visit Yannick Sanitago MD [facility] - In-person encounter Office Visit Yannick Santiago MD [place] [facility] CHEST PAIN-04/28 NUC NL-03/25 NUC ISCHEMIAPALPITATIONS-06/25 HOLTER SR HR 31-116 MOBITZ 2 CHB PVC-PAC - In-person encounter Office Visit Yannick Santiago MD [place] [facility] CAD S/P CABG; 50-60% LM, 40% LAD, 80% RCA 03/2009DyslipidemiaRENAL ARTERY STENOSIS 70% LEFT APRIL 2009 - In-person encounter Office Visit Yannick Santiago MD [facility] CAD S/P CABG; 50-60% LM, 40% LAD, 80% RCA 03/2009CHEST PAIN-04/28 NUC NL-03/25 NUC ISCHEMIA VITAL SIGNS Date Observation Value Provider Body Mass Index (Ratio) 30.42 kg/m2 Mik Madrigal blood pressure, diastolic 95 mm[Hg] Adry jeffreyshaynacj Helm blood pressure, systolic 199 mm[Hg] Esmer Helm oxygen saturation, oximetry 97 % Tiana Helm pulse rate 70 /[facility] 12 /[facility] weight E&M 206 [lb_av] Tiana Helm height E&M 69 [in_i] Tiana Helm blood pressure, cuff size regular Adry Helm Body Mass Index (Ratio) 30.27 kg/m2 Mik Madrigal blood pressure, diastolic 85 mm[Hg] Kyle Cowan blood pressure, systolic 166 mm[Hg] Nikki Cowan pulse rate 79 /min Alyssa alvarez oxygen saturation, oximetry 90 % Alyssa Cowan weight E&M 205 [lb_av] Alyssa alvarez blood pressure, cuff size regular Kyle Cowan height E&M 69 [in_i] Alyssa Faria s Body Mass Index (Ratio) 29.83 kg/m2 Durga Jameson blood pressure, cuff size regular Kyle Cowan blood pressure, diastolic 84 mm[Hg] Kyle Cowan blood pressure, systolic 167 mm[Hg] Nikki Cowan pulse rate 74 /min Alyssa alvarez oxygen saturation, oximetry 86 % Alyssa Cowan weight E&M 202 [lb_av] Alyssa Faria s height E&M 69 [in_i] Alyssa Faria s height E&M 69 [in_i] Lucio Chahal Body Mass Index (Ratio) 30.71 kg/m2 Mik Madrigal oxygen saturation, oximetry 90 % Joiprisca Presley respiratory rate E&M 12 /min Joi Presley pulse rate 67 /min Joi Presley weight E&M 208 [lb_av] Joi Presley blood pressure, cuff size large Ta santowil Presley blood pressure, diastolic 64 mm[Hg] Ta bitha Presley blood pressure, systolic 132 mm[Hg] Tab itha Presley height E&M 69 [in_i] Joi Fernandez Body Mass Index (Ratio) 30.42 kg/m2 Durga Jameson blood pressure, cuff size regular Jorge Presley blood pressure, diastolic 74 mm[Hg] Jorge Presley blood pressure, systolic 124 mm[Hg] Low Presley oxygen saturation, oximetry 90 % Joi Presley pulse rate 105 /min Joi Presley weight E&M 206 [lb_av] Joi Presley respiratory rate E&M 12 /min Joi Presley height E&M 69 [in_i] Joi Presley Body Mass Index (Ratio) 31.45 kg/m2 Crystal Omerekta blood pressure, diastolic 85 mm[Hg] An shayna Milton blood pressure, systolic 176 mm[Hg] Alysa cope Milton oxygen saturation, oximetry 88 % Paula Milton pulse rate 64 /min Paula Milton weight E&M 213 [lb_av] Paula Milton blood pressure, cuff size large An shayna Milton height E&M 69 [in_i] Paula Milton Body Mass Index (Ratio) 31.89 kg/m2 Nessa jackie Naidu oxygen saturation, oximetry 91 % Andree Campuzano pulse rate 88 /min Andree aguayo blood pressure, cuff size large Zoila bella Justen blood pressure, diastolic 78 mm[Hg] Mi shayne Campuzano blood pressure, systolic 142 mm[Hg] Jose weston Campuzano respiratory rate E&M 16 /min Radha Campuzano weight E&M 216 [lb_av] Andree aguayo height E&M 69 [in_i] Andree aguayo Body Mass Index (Ratio) 31.60 kg/m2 Nessa jackie Naidu blood pressure, diastolic 87 mm[Hg] Te ri Smalls blood pressure, systolic 156 mm[Hg] Marie oxygen saturation, oximetry 93 % Nelsy Smalls respiratory rate E&M 16 /min Nelsy coleman weight E&M 214 [lb_av] Nelsy Smalls Body Mass Index (Ratio) 31.30 kg/m2 Nessa mejia Evangelista blood pressure, resting Yes Eder Kingstonford blood pressure, diastolic 78 mm[Hg] Sh dee Graham blood pressure, systolic 134 mm[Hg] She mona Graham oxygen saturation, oximetry 88 % Piyush Kingstonford respiratory rate E&M 18 /min Alejandrina champion Graham weight E&M 212 [lb_av] Piyush Kingston polo height E&M 69 [in_i] Piyush polo Body Mass Index (Ratio) 31.30 kg/m2 Real sara Appiahberg blood pressure, diastolic, left arm 80 mm [Hg] Tonsha Rubalcava blood pressure, systolic, left arm 140 mm [Hg] Tonsha Rubalcava blood pressure, diastolic, right arm 82 m m[Hg] Tonsha Rubalcava blood pressure, systolic, right arm 149 m m[Hg] Tonsha Rubalcava blood pressure, diastolic 80 mm[Hg] To nsha Rubalcava blood pressure, systolic 140 mm[Hg] Ton sha Rubalcava oxygen saturation, oximetry 91 % Tonsha Rubalcava respiratory rate E&M 16 /min Tonsha Rubalcava pulse rate 72 /min Tonsha Rubalcava weight E&M 212 [lb_av] Tonsha Rubalcava height E&M 69 [in_i] Tonsha Rubalcava temperature site temporal Emily Tank sley temperature E&M 96.9 [degF] Emily Tanks boubacar Body Mass Index (Ratio) 31.30 kg/m2 Real sara Servando blood pressure, cuff size regular Cy judson Olsen blood pressure, diastolic 64 mm[Hg] Cy judson Olsen blood pressure, systolic 130 mm[Hg] Summer huan Olsen oxygen saturation, oximetry 96 % Maribel Olsen respiratory rate E&M 16 /min Maribelhuan Olsen pulse rate 65 /min Maribelhuan valdovinos weight E&M 212 [lb_av] Maribel Hernández l height E&M 69 [in_i] Maribel Hernández l Body Mass Index (Ratio) 31.01 kg/m2 Real ruiz Servando blood pressure, cuff size regular Ke rri Rebekah blood pressure, diastolic 70 mm[Hg] Ke rri Rebekah blood pressure, systolic 136 mm[Hg] Nael bernadette Welch oxygen saturation, oximetry 91 % Bailey Welch respiratory rate E&M 18 /min Bailey barragan pulse rate 76 /min Bailey Diaomnd er weight E&M 210 [lb_av] Bailey Diamond er height E&M 69 [in_i] Bailey Diamond [facility] [facility] Body Mass Index (Ratio) 31.01 kg/m2 Real ruiz Servando blood pressure, cuff size large Mariposa Corado blood pressure, diastolic 60 mm[Hg] Mariposa Corado blood pressure, systolic 110 mm[Hg] Britni Corado oxygen saturation, oximetry 95 % Lorraine Corado respiratory rate E&M 16 /min Lorraine Corado pulse rate 74 /min Lorraine Corado weight E&M 210 [lb_av] Lorraine Mak height E&M 69 [in_i] Lorraine Corado Body Mass Index (Ratio) 31.98 kg/m2 Real Al blood pressure, resting Yes Yannick Santiago MD blood pressure, diastolic 81 mm[Hg] Kay Crystal blood pressure, systolic 154 mm[Hg] Lea Crystal oxygen saturation, oximetry 91 % Julianne Crystal respiratory rate E&M 18 /min Lucy Crystal pulse rate 80 /min Julianne newberry weight E&M 216.6 [lb_av] Julianne manuelon height E&M 69 [in_i] Julianne wrighton blood pressure, diastolic 70 mm[Hg] Kenneth Welch blood pressure, systolic 110 mm[Hg] Nael Welch pulse rate 67 /min Bailey redder oxygen saturation, oximetry 94 % Bailey Welch respiratory rate E&M 16 /min Bailey barragan Body Mass Index (Ratio) 32.63 kg/m2 Tamanna Welch weight E&M 221 [lb_av] Bailey Diamond lder blood pressure, diastolic 71 mm[Hg] Vt rachael Naik blood pressure, systolic 141 mm[Hg] Ariella butch Naik pulse rate 72 /min Ina Naik oxygen saturation, oximetry 93 % Ina Naik respiratory rate E&M 16 /min Ina Naik Body Mass Index (Ratio) 32.93 kg/m2 Patience lee Naik weight E&M 223 [lb_av] Ina Naik blood pressure, diastolic, left arm 67 mm [Hg] Ina Naik blood pressure, systolic, left arm 137 mm [Hg] [facility] blood pressure, diastolic, right arm 60 m m[Hg] [facility] blood pressure, systolic, right arm 134 m m[Hg] [facility] blood pressure, diastolic 60 mm[Hg] Vt rachael Naik blood pressure, systolic 134 mm[Hg] Ariella butch Naik pulse rate 70 /min [facility] oxygen saturation, oximetry 95 % [facility] Body Mass Index (Ratio) 33.22 kg/m2 [facility] respiratory rate E&M 16 /min [facility] weight E&M 225 [lb_av] [facility] Body Mass Index (Ratio) 31.72 kg/m2 [facility] blood pressure, diastolic, left arm 76 mm [Hg] [facility] blood pressure, systolic, left arm 134 mm [Hg] [facility] blood pressure, diastolic, right arm 70 m m[Hg] [facility] blood pressure, systolic, right arm 142 m m[Hg] [facility] blood pressure, diastolic 70 mm[Hg] Vt rachael Naik blood pressure, systolic 142 mm[Hg] [facility] 74 /min [facility] oxygen saturation, oximetry 95 % [facility] respiratory rate E&M 16 /min [facility] weight E&M 214 [lb_av] [facility] Body Mass Index (Ratio) 32.19 kg/m2 Fareed Domínguez blood pressure, diastolic, left arm 57 mm [Hg] Sammy Manacop blood pressure, systolic, left arm 133 mm [Hg] Sammy Buiacop blood pressure, diastolic, right arm 77 m m[Hg] Sammy Buiacop blood pressure, systolic, right arm 145 m m[Hg] Sammy Manacop blood pressure, diastolic 77 mm[Hg] Yana jacky Manacop blood pressure, systolic 145 mm[Hg] Kvng barrett Manacop pulse rate 76 /min Sammy Manacop oxygen saturation, oximetry 96 % Sammy Manacop respiratory rate E&M 20 /min Sammy Manacop weight E&M 217.2 [lb_av] Sammy Manacop blood pressure, diastolic, left arm 76 mm [Hg] Balbir Zarco RN blood pressure, systolic, left arm 140 mm [Hg] Balbir Zarco RN blood pressure, diastolic, right arm 77 m m[Hg] Balbir Zarco RN blood pressure, systolic, right arm 127 m m[Hg] Balbir Zarco RN blood pressure, diastolic 76 mm[Hg] Miki Zarco RN blood pressure, systolic 140 mm[Hg] Balbir Zarco RN pulse rate 63 /min Balbir Zarco RN oxygen saturation, oximetry 95 % Balbir Zarco RN respiratory rate E&M 18 /min Balbir sears RN weight E&M 210 [lb_av] Balbir Zarco RN blood pressure, diastolic, left arm 94 mm [Hg] Balbir Zarco RN blood pressure, systolic, left arm 160 mm [Hg] Balbir Zarco RN blood pressure, diastolic, right arm 86 m m[Hg] Balbir Zarco RN blood pressure, systolic, right arm 166 m m[Hg] Balbir Zarco RN blood pressure, diastolic 94 mm[Hg] Miki Zarco RN blood pressure, systolic 160 mm[Hg] Balbir Zarco RN pulse rate 72 /min Balbir Zarco RN oxygen saturation, oximetry 97 % Balbir Zarco RN respiratory rate E&M 16 /min Balbir sears RN weight E&M 218 [lb_av] Balbir Zarco RN blood pressure, diastolic, left arm 76 mm [Hg] Balbir Hernandezs RN blood pressure, systolic, left arm 123 mm [Hg] Balbir Hernandezs RN blood pressure, diastolic, right arm 68 m m[Hg] Balbir Hernandezs RN blood pressure, systolic, right arm 134 m m[Hg] Balbir Hernandezs RN blood pressure, diastolic 68 mm[Hg] Miki finney Zarco RN blood pressure, systolic 134 mm[Hg] Balbir Hernandezs RN pulse rate 71 /min Balbir Hernandezs RN oxygen saturation, oximetry 95 % Balbir Hernandezantonio LEES respiratory rate E&M 16 /min Balbir Nita sears RN weight E&M 212 [lb_av] Balbir Hernandezs RN blood pressure, diastolic, left arm 82 mm [Hg] Itzel Morse blood pressure, systolic, left arm 135 mm [Hg] Itzel Morse blood pressure, diastolic, right arm 116 mm[Hg] Itzel Morse blood pressure, systolic, right arm 129 m m[Hg] Itzel Morse blood pressure, diastolic 116 mm[Hg] Rose blood pressure, systolic 129 mm[Hg] Constantine Morse pulse rate 72 /min Itzel Morse oxygen saturation, oximetry 98 % Itzel Morse respiratory rate E&M 16 /min Itzel Morse weight E&M 214 [lb_av] Itzel Morse blood pressure, diastolic, left arm 60 mm [Hg] Angle O'Enrique blood pressure, systolic, left arm 105 mm [Hg] Angle O'Enrique blood pressure, diastolic, right arm 67 m m[Hg] Angle O'Enrique blood pressure, systolic, right arm 115 m m[Hg] Angle O'Enrique blood pressure, diastolic 67 mm[Hg] Kay Sood'Enrique blood pressure, systolic 115 mm[Hg] Lea Sood'Enrique pulse rate 64 /min Angle O'Enrique oxygen saturation, oximetry 98 % Angle O'Enrique respiratory rate E&M 16 /min Angle O'Enrique weight E&M 211 [lb_av] Angle O'Enrique blood pressure, diastolic 78 mm[Hg] Da yokojaya Madi blood pressure, systolic 135 mm[Hg] Solo morejon Madi pulse rate 69 /min Melani Barraza oxygen saturation, oximetry 99 % Melani Barraza respiratory rate E&M 16 /min Eric Barraza weight E&M 203 [lb_av] Melani Barraza blood pressure, diastolic, left arm 96 mm [Hg] [facility], [facility] 152 mm [Hg[facility], right arm 86 m m[Hg] [facility], systolic, right arm 160 m m[Hg] [facility], diastolic 86 mm[Hg] [facility]ph [facility], [facility] 160 mm[Hg] Kvng barrett [facility] 74 /min [facility], oximetry 98 % [facility] E&M 16 /min [facility] height E&M 69 [in_i] Sammy Manacop blood pressure, diastolic, left arm 76 mm [Hg] Sammy Manacop blood pressure, systolic, left arm 140 mm [Hg] Sammy Manacop blood pressure, diastolic, right arm 87 m m[Hg] Sammy Manacop blood pressure, systolic, right arm 154 m m[Hg] Sammy Manacop blood pressure, diastolic 87 mm[Hg] Yana seph Manacop blood pressure, systolic 154 mm[Hg] Kvng eph Manacop pulse rate 74 /min Sammy Manacop oxygen saturation, oximetry 98 % Sammy Manacop respiratory rate E&M 16 /min Sammy Manacop weight E&M 205.38 [lb_av] Sammy Manaco p blood pressure, diastolic 90 mm[Hg] Miki Zarco RN blood pressure, systolic 152 mm[Hg] Balbir Zarco RN pulse rate 74 /min Balbir Zarco RN oxygen saturation, oximetry 99 % Balbir Zarco RN respiratory rate E&M 16 /min Balbir sears RN weight E&M 202 [lb_av] Balbir Zarco RN blood pressure, diastolic 91 mm[Hg] Miki Zarco RN blood pressure, systolic 154 mm[Hg] Balbir Zarco RN pulse rate 78 /min Balbir Zarco RN oxygen saturation, oximetry 98 % Balbir Zarco RN respiratory rate E&M 18 /min Balbir sears RN weight E&M 202 [lb_av] Balbir Zarco RN pulse rate 70 /min Sammy Manacop oxygen saturation, oximetry 97 % Sammy Manacop respiratory rate E&M 16 /min Sammy Manacop weight E&M 200 [lb_av] Sammy Manacop height E&M 70 [in_i] Sammy Manacop blood pressure, diastolic 71 mm[Hg] Yana seph Manacop blood pressure, systolic 124 mm[Hg] Kvng eph Manacop blood pressure, diastolic 108 mm[Hg] Vera Mcgee MA blood pressure, systolic 204 mm[Hg] Jewels Mcgee MA pulse rate 73 /min Nataly Mcgee MA oxygen saturation, oximetry 97 % Nataly Mcgee MA respiratory rate E&M 18 /min Nataly Mcgee MA weight E&M 207 [lb_av] Nataly Mcgee MA ALLERGIES Allergy Name Onset Date Reaction Criticality Status DEVENT Low Criticality active TYLENOL/CODEINE #3 Hallucinations Hallucination s Low Criticality active RESULTS Date Observation Value Provider Reference Range Interpretation Location LDL cholesterol, serum 65 mg/dL [facility] triglyceride, serum, fasting 203 mg[facility] HDL cholesterol, serum 48 mg/dL [facility] Red LDL cholesterol, serum 80 mg/[facility], serum 169 [facility] 10.7 s [facility] international normalized ratio (INR) 1.0 [facility] creatinine, serum 0.84 mg/dL [facility] urea nitrogen, blood 11.8 mg/dL [facility] carbon dioxide, serum, total 30 mmol/L [facility] chloride, serum 106 mmol/L [facility] potassium, serum 3.9 mmol/L [facility] sodium, serum 138 mmol/L [facility] platelet count 138 10*3/uL [facility] hematocrit, blood 40.1 % [facility] hemoglobin, blood 13.9 g/dL [facility] erythrocyte (RBC) count 4.10 10*6/mm3 [facility] leukocyte count, blood 3.8 10*3/mm3 [facility] estimated glomerular filtration rate >60 [facility] creatinine, serum 0.96 mg/dL [facility] urea nitrogen, blood 10.7 mg/dL [facility] urine crystals, microscopic None [facility] epithelial cells, urine, per microscopy Occasional [facility] casts, urine None [facility] WBC urine on microscopy 3-5 [facility] bacteria, urine microscopy None [facility] urine by microscopy 0-2 [facility] [place] leukocyte esterase, urine, by dipstick Negative [facility] [place] urobilinogen, urine, semiquantitative (dipstick) Normal [facility] [place] nitrite, urine, semiquantitative Negative [facility] RBC, urine, dipstick 10 [facility] bilirubin, urine Negative [facility] ketones, urine, by test strip Negative [facility] [place] glucose, urine, semiquantitative Normal [facility] protein, urine, semiquantitative (dipstick) Negative [facility] [place] pH, urine, semiquantitative 6.0 [facility] [place] specific gravity, urine 1.015 [facility] urine color Pale Yellow [facility] appearance, urine Clear [facility] [place] PTT patient 29.2 s [facility] [place] prothrombin time (patient) 10.3 s [facility] [place] international normalized ratio (INR) 1.0 [facility] [place] platelet count 131 10*3/uL [facility] [place] red blood cell distribution width 15.0 % [facility] [place] mean corpuscular hemoglobin concentration, RBC 33.9 g/dL [facility] [place] mean corpuscular hemoglobin, RBC 31.7 pg [facility] [place] mean corpuscular volume, RBC 93.5 fL [facility] [place] hematocrit, blood 38.6 % [facility] [place] hemoglobin, blood 13.1 g/dL [facility] [place] erythrocyte (RBC) count 4.13 10*6/mm3 [facility] [place] monocytes as percent of blood leukocytes 14.4 % [facility] [place] lymphocytes as percent of blood leukocytes 24.8 % [facility] [place] leukocyte count, blood 4.5 10*3/mm3 [facility] [place] creatine kinase, serum 124 1/L [facility] B-type natriuretic peptide 79 pg/mL [facility] creatine kinase, serum 124 1/L [facility] creatine kinase, serum 124 1/L [facility] calcium, serum 8.4 mg/dL [facility] blood glucose, fasting 120 mg/dL [facility] creatinine, serum 1.03 mg/dL [facility] urea nitrogen, blood 16 mg/dL [facility] carbon dioxide, serum, total 27 mmol/L [facility] chloride, serum 106 mmol/L [facility] potassium, serum 3.7 mmol/L [facility] sodium, serum 136 mmol/L [facility] triglyceride, serum, fasting 163 mg/dL [facility] [place] HDL cholesterol, serum 46 mg/dL [facility] LDL cholesterol, serum 73 mg/dL [facility] cholesterol, serum 152 mg/dL [facility] [place] urine crystals, microscopic None [facility] [place] epithelial cells, urine, per microscopy moderate [facility] casts, urine None [facility] [place] WBC urine on microscopy 20-40 [facility] bacteria, urine microscopy Few [facility] RBC urine by microscopy 5-10 [facility] leukocyte esterase, urine, by dipstick 100 [facility] [place] urobilinogen, urine, semiquantitative (dipstick) Normal [facility] nitrite, urine, semiquantitative Negative [facility], urine, dipstick [facility] bil[facility], urine Negative [facility] ketones, urine, by test strip Negative [facility] Red glucose, urine, semiquantitative Normal [facility] [place] protein, urine, semiquantitative (dipstick) Negative [facility] pH, urine, semiquantitative 5.0 [facility] specific gravity, urine 1.025 [facility] [place] urine color Luciana [facility] appearance, urine Hazy [facility] yeast identified on urinalysis No [facility] [place] urine crystals, microscopic None [facility] epithelial cells, urine, per microscopy [place] [facility] casts, urine None [facility] WBC urine on microscopy 60-100 [facility] bacteria, urine microscopy None [facility] RBC urine by microscopy 5-10 [facility] leukocyte esterase, urine, by dipstick 500 [facility] urobilinogen, urine, semiquantitative (dipstick) Normal [facility] nitrite, urine, semiquantitative Negative [facility] RBC, urine, dipstick [facility] bilirubin, urine Negative [facility] ketones, urine, by test strip Negative [facility] glucose, urine, semiquantitative Normal [facility] protein, urine, semiquantitative (dipstick) Negative [facility] pH, urine, semiquantitative 6.0 [facility] specific gravity, urine 1.020 [facility] [place] urine color SL CLOUDY [facility] [place] appearance, urine Luciana [facility] [place] urine crystals, microscopic none Tiffanie Coley RN epithelial cells, urine, per microscopy many Tiffanie Coley RN casts, urine none Tiffanie Coley RN WBC urine on microscopy 100+ Tiffanie Coley RN bacteria, urine microscopy moderate Tiffanie Coley RN RBC urine by microscopy 10-20 Tiffanie Coley RN leukocyte esterase, urine, by dipstick 500 Tiffanie Coley RN urobilinogen, urine, semiquantitative (dipstick) normal Tiffanie Coley RN nitrite, urine, semiquantitative Negative [facility] RBC, urine, dipstick 50 [facility] bilirubin, urine Negative [facility] ketones, urine, by test strip Negative [facility] glucose, urine, semiquantitative normal [facility] protein, urine, semiquantitative (dipstick) Negative [facility] pH, urine, semiquantitative 5.0 [facility] specific gravity, urine 1.025 [facility] urine color luciana [facility] appearance, urine Cloudy [facility] urine crystals, microscopic none [facility] epithelial cells, urine, per microscopy many [facility] casts, urine none [facility] WBC urine on microscopy 100+ [facility] bacteria, urine microscopy moderate [facility] RBC urine by microscopy 10-20 [facility] leukocyte esterase, urine, by dipstick 500 [facility] urobilinogen, urine, semiquantitative (dipstick) normal [facility] nitrite, urine, semiquantitative Negative [facility] RBC, urine, dipstick 50 [facility] bilirubin, urine Negative [facility] ketones, urine, by test strip Negative [facility] glucose, urine, semiquantitative normal [facility] protein, urine, semiquantitative (dipstick) Negative [facility] pH, urine, semiquantitative 5.0 [facility] specific gravity, urine 1.025 [facility] urine color luciana [facility] appearance, urine Cloudy [facility] platelet count 133 10*3/uL [facility] red blood cell distribution width 15.1 % [facility] hematocrit, blood 39.0 % [facility] hemoglobin, blood 13.1 g/dL [facility] erythrocyte (RBC) count 4.23 10*6/mm3 [facility] leukocyte count, blood 3.5 10*3/mm3 [facility] prothrombin time (patient) 10.6 s [facility] international normalized ratio (INR) 1.0 [facility] leukocyte esterase, urine, by dipstick 500 [facility] urobilinogen, urine, semiquantitative (dipstick) normal [facility] nitrite, urine, semiquantitative Negative [facility] RBC, urine, dipstick 50 [facility] bilirubin, urine Negative [facility] ketones, urine, by test strip Negative [facility] glucose, urine, semiquantitative normal [facility] protein, urine, semiquantitative (dipstick) Negative [facility] pH, urine, semiquantitative 5.0 [facility] specific gravity, urine 1.025 [facility] urine color luciana [facility] appearance, urine Cloudy [facility] thyroid stimulating hormone, serum 3.09 u[IU]/mL [facility] thyroxine, serum, free 0.65 ng/dL [facility] magnesium, serum 2.2 mg/dL [facility] blood glucose, fasting 109 mg/dL [facility] creatinine, serum 0.9 mg/dL [facility] urea nitrogen, blood 13 mg/dL [facility] carbon dioxide, serum, total 31 mmol/L [facility] chloride, serum 104 mmol/L [facility] potassium, serum 4.1 mmol/L [facility] sodium, serum 138 mmol/L [facility] creatine kinase, serum 141 1/L [facility] blood glucose, fasting 91 mg/dL [facility] creatinine, serum 1.0 mg/dL [facility] urea nitrogen, blood 12 mg/dL [facility] carbon dioxide, serum, total 28 mmol/L [facility] chloride, serum 107 mmol/L [facility] potassium, serum 3.8 mmol/L [facility] sodium, serum 140 mmol/L [facility] platelet count 132 10*3/uL [facility] hematocrit, blood 39.6 % [facility] hemoglobin, blood 14.2 g/dL [facility] leukocyte count, blood 5 10*3/mm3 [facility] calcium, serum 9.0 mg/dL [facility] blood glucose, fasting 91 mg/dL [facility] creatinine, serum 1.02 mg/dL [facility] urea nitrogen, blood 12 mg/dL [facility] carbon dioxide, serum, total 28 mmol/L [facility] chloride, serum 107 mmol/L [facility] potassium, serum 3.8 mmol/L [facility] sodium, serum 140 mmol/L [facility] platelet count 132 10*3/uL [facility] red blood cell distribution width 13.9 % [facility] mean corpuscular hemoglobin concentration, RBC 35.9 g/dL [facility] mean corpuscular hemoglobin, RBC 34.4 pg [facility] mean corpuscular volume, RBC 95.9 fL [facility] hematocrit, blood 39.6 % [facility] hemoglobin, blood 14.2 g/dL [facility] erythrocyte (RBC) count 4.13 10*6/mm3 [facility] monocyte count, blood 0.67 10*3/mm3 [facility] lymphocyte count, blood 1.79 10*3/mm3 [facility] monocytes as percent of blood leukocytes 13.3 % [facility] lymphocytes as percent of blood leukocytes 35.6 % [facility] leukocyte count, blood 5.0 10*3/mm3 [facility] albumin/globulin ratio, serum 0.8 [facility] protein, total, serum 7.2 g/dL [facility] albumin, serum 3.3 g/dL [facility] bilirubin, serum, total 0.30 mg/dL [facility] alkaline phosphatase, serum 81 1/L [facility] alanine aminotransferase (SGPT), serum 39 1/L [facility] aspartate aminotransferase (SGOT), serum 36 1/L [facility] calcium, serum 9.3 mg/dL [facility] blood glucose, fasting 99 mg/dL [facility] creatinine, serum 1.01 mg/dL [facility] urea nitrogen, blood 14 mg/dL [facility] carbon dioxide, serum, total 30 mmol/L [facility] chloride, serum 107 mmol/L [facility] potassium, serum 3.8 mmol/L [facility] sodium, serum 141 mmol/L [facility] international normalized ratio (INR) 1.2 Radhika Pak prothrombin time (patient) 12.2 s Radhika Pak HISTORY OF MEDICATION USE Medication Status Instructions Dates Provider Indications Com ments clopidogrel 75 mg tablet active TAKE 1 TABLET DAILY Melissa Richardson RN Jardiance 10 mg tablet completed Take 1 tablet by mouth once a day - Balbir Zarco RN atorvastatin 10 mg tablet active Take 1 tablet by mouth once daily Melissa Richardson RN clopidogrel 75 mg tablet completed TAKE 1 TABLET BY MOUTH EVERY DAY - Melissa Richardson RN metoprolol tartrate 25 mg tablet active TAKE 1 TABLET BY MOUTH TWICE A DAY Melissa CARLSONP atorvastatin 10 mg tablet completed TAKE 1 TABLET DAILY - Melissa Wattsmikelly CARLSONP clopidogrel 75 mg tablet completed TAKE 1 TABLET DAILY - Melissa Lincoln PATTERN ROOM ATTENDANT Vitamin B-12 100 mcg tablet active Piyush Rhodes Plavix 75 mg tablet completed Take 1 tablet once a day - Yannick Santiago MD CIPROFLOXACIN HCL 500 MG ORAL TABLET completed Take 1 tab twice daily for 7 days. - Ina Naik Nitrostat 0.4 mg tablet, sublingual active PLACE 1 TABLET UNDER TONGUE FOR CHEST PAIN NEEDED. MAY REPEAT EVERY 5 MINUTES IF STILL HAVING CHEST PAIN- TO MAX OF 3 TABLETS PER EPISODE.IF NO RELIEF AFTER 3RD DOSE, GO TO ER Yannick Santiago MD KLOR-CON M10 10 MEQ ORAL TABLET EXTENDED RELEASE completed ONE TAB DAILY as needed when taking furosemide - Bailey Welch FUROSEMIDE 20 MG ORAL TABLET completed One tab daily as needed - Bailey Welch meclizine 25 mg tablet active as needed Ina Naik NITROLINGUAL 0.4 MG/SPRAY TRANSLINGUAL SOLUTION completed one spray every 5 minutes x 3 if no relief go to nearest emergency room - Bhupendra William metoprolol tartrate 25 mg tablet completed 1 tablet by mouth twice a day - Melissa Lincoln PATTERN ROOM ATTENDANT PLAVIX 75 MG ORAL TABLET completed ONE TAB. DAILY - Melani Barraza MULTIVITAMINS TABS active 1 tablet by mouth once a day Yannick Santiago MD CIPRO 500 MG ORAL TABLET completed twice daily - Sammy Domínguez BACTRIM 400-80 MG ORAL TABLET completed Take 1 tab by mouth every 12 hr. for UTI - Sammy Domínguez Lipitor 10 mg tablet completed 1 tablet once a day - Yannick Santiago MD azathioprine 50 mg tablet active 1 tablet by mouth twice a day Yannick Santiago MD aspirin 81 mg tablet,delayed release (DR/EC) completed 1 tablet by mouth once a day - Melissa Stefaniezoilakelly PATTERN ROOM ATTENDANT METOPROLOL TARTRATE 25 MG ORAL TABLET completed 1/2 tablet by mouth every 12 hours - Yannick Santiago MD Xanax 0.5 mg tablet active 1 tablet every eight hours as directed Yannick Santiago MD SOCIAL HISTORY Date Observation Value Provider personal history of marijuana use no Yannick Santiago MD drug use no Yannick Santiago MD alcohol use no Yannick Santiago MD passive cigarette sm jaya exposure yes Yannick Santiago MD smoking, year quit 1999 Yannick rodriguez MD smoking history, tot al pack/year 37 Yannick Santiago MD smoking history, tot al pack/day 1 Yannick Santiago MD cigarette use yes Yannick Santiago MD smoking status Former smoker Yannick Santiago MD number of grandchildren Yannick Santiago MD personal history of marijuana use no Yannick Santiago MD drug use no Yannick Santiago MD alcohol use no Yannick Santiago MD passive cigarette sm jaya exposure yes Yannick Santiago MD smoking, year quit 1999 Yannick rodriguez MD smoking history, tot al pack/year 38 Yannick Santiago MD smoking history, tot al pack/day 1 Yannick Santiago MD cigarette use yes Yannick Santiago MD smoking status Former smoker Yannick Santiago MD personal history of marijuana use no Baldev Jameson drug use no Baldev corona alcohol use no Baldev corona passive cigarette sm jaya exposure yes Baldev Jameson smoking, year quit 1999 Baldev webber smoking history, tot al pack/year 38 Baldev Jameson smoking history, tot al pack/day 1 Baldev Jameson cigarette use yes Baldev Zarate smoking status Former smoker Baldev fischer personal history of marijuana use no Yannick Santiago MD drug use no Yannick Santiago MD alcohol use no Yannick Santiago MD passive cigarette sm jaya exposure yes Yannick Santiago MD smoking, year quit 1999 Yannick rodriguez MD smoking history, tot al pack/year 38 Yannick Feng Pamela ADRIAN smoking history, tot al pack/day 1 Yannick Santiago MD cigarette use yes Yannick Santiago MD smoking status Former smoker Yannick Feng Pamela ADRIAN personal history of marijuana use no Yannick Santiago MD drug use no Yannick Santiago MD alcohol use no Yannick Santiago MD passive cigarette sm jaya exposure yes Yannick Santiago MD smoking, year quit 1999 Yannick rodriguez MD smoking history, tot al pack/year 38 Yannick Santiago MD smoking history, tot al pack/day 1 Yannick Santiago MD cigarette use yes Yannick Santiago MD smoking status Former smoker Yannick Santiago MD personal history of marijuana use no Melissa Ventimiglia [facility] drug use no Melissa Ventimig lópez [facility] alcohol use no Meilssa Ventimig lópez [facility] passive cigarette sm jaya exposure yes Melissa Ventimiglia [facility] smoking, year quit 1999 Melissa Ve ntimiglia [employer] RO[employer] ATTENDANT smoking history, tot al pack/year 38 Melissa Ventimiglia [facility] smoking history, tot al pack/day 1 Melissa Ventimiglia [employer] RO[employer] ATTENDANT cigarette use yes Melissa Ventimi glia [employer] RO[employer] ATTENDANT smoking status Former smoker Melissa Venti miglia [facility] social history reviewed E&M revi ewed - no changes required Mariann Crook social history E&M Marital Statu s: L marisela with family/friends E thnicity: Smoking History: P des is a former smoker. Mariann Crook caffeine use, averag e drinks per day 1 /d Paulaprisca Rose passive cigarette sm jaya exposure yes Paula Milton smoking, year quit 1999 Paulaprisca garsia smoking history, tot al pack/year 37 Paula Milton smoking history, tot al pack/day 1 Paula Milton cigarette use yes Paula Milton smoking status Former smoker Paula Jose alvarez social history E&M Marital Statu s: L marisela with family/friends E thnicity: Smoking History: P des is a former smoker. Yannick Santiago MD social history reviewed E&M revi ewed - no changes required Yannick Santiago MD caffeine use, averag e drinks per day 1 /d Andree Campuzano passive cigarette sm jaya exposure yes Andree Justen smoking, year quit 1999 Andree Campuzano smoking history, tot al pack/year 37 Andree Justen smoking history, tot al pack/day 1 Andree Campuzano cigarette use yes Andree Hoffmann nd smoking status Former smoker Andree Cooper pattie social history reviewed E&M revi ewed - no changes required Juliet Naidu social history E&M Marital Statu s: L marisela with family/friends E thnicity: Smoking History: Rosa nunes is a former smoker. Juliet Naidu social history reviewed E&M revi ewed - no changes required Juliet Naidu caffeine use, averag e drinks per day 1 /d Piyush Rhodes passive cigarette sm jaya exposure yes Piyush Rhodes smoking, year quit 1999 Linda Rhodes smoking history, tot al pack/year 37 Piyush Rhodes smoking history, tot al pack/day 1 Piyush Rhodes cigarette use yes Piyush maloney smoking status Former smoker Piyush puente social history reviewed E&M revi ewed - no changes required Alfonso Servando caffeine use, averag e drinks per day 1 /d Tonsha Rubalcava passive cigarette sm jaya exposure yes Tonsha Rubalcava smoking, year quit 1999 Tonsha Mo ss smoking history, tot al pack/year 37 Tonsha Rubalcava smoking history, tot al pack/day 1 Tonsha Rubalcava cigarette use yes Tonsha Rubalcava smoking status Former smoker Tonsha Rubalcava social history reviewed E&M revi ewed - no changes required Alfonso Al alcohol use, average drinks per day none Maribel Olsen alcohol use no Maribel valdovinos caffeine use, averag e drinks per day 1 /d Maribel Olsen drug use no Maribel valdovinos passive cigarette sm jaya exposure yes Maribel Olsen smoking, year quit 1999 Maribel arreaga smoking history, tot al pack/year 37 Maribel Olsen smoking history, tot al pack/day 1 Maribel Olsen cigarette use yes Maribel fonseca smoking status Former smoker Maribel medina social history reviewed E&M revi ewed - no changes required [facility] smoking, year quit 1999 [facility] smoking history, tot al pack/year 38 [facility] smoking history, tot al pack/day 1 [facility] cigarette use yes [facility] sanchez alcohol use, average drinks per day none Bailey Bhattideion alcohol use no Bailey Diamond tramaineer caffeine use, averag e drinks per day 1 /d Bailey De La Rosasandhya drug use no Bailey Diamond lder passive cigarette sm jaya exposure yes Bailey De La Rosasandhya smoking status Former smoker Bailey Ochoa steven social history reviewed E&M revi ewed - no changes required Yannick Santiago MD alcohol use, average drinks per day none Lorraine Corado alcohol use no Lorraine Corado caffeine use, averag e drinks per day 1 /d Lorraine Corado drug use no Lorraine Corado passive cigarette sm jaya exposure yes Lorraine Corado smoking status Former smoker Lorraine Corado social history reviewed E&M revi ewed - no changes required Yannick Santiago MD alcohol use, average drinks per day none Julianne Crystal alcohol use no Julianne Yun coni caffeine use, averag e drinks per day 1 /d Julianne Crystal drug use no Julianne Yun coni passive cigarette sm jaya exposure yes Julianne Crystal smoking status Former smoker Julianne St chapman social history reviewed E&M revi ewed - no changes required Yannick Santiago MD social history E&M Marital Statu s: L marisela with family/friends E thnicity: Smoking History: Rosa nunes is a former smoker. Yannick Santiago MD alcohol use, average drinks per day none Bailey Welch alcohol use no Bailey Lobo vazquez caffeine use, averag e drinks per day 1 /d Bailey Rebekah drug use no Bailey Diamond taylor passive cigarette sm jaya exposure yes Bailey Ochoasteven smoking status Former smoker Bailey Ochoa steven social history E&M Marital Statu s: [place] an[place]io with family/friends E thnicity: Smoking History: Rosa nunes is a former smoker. Alfonso Al social history reviewed E&M revi ewed - no changes required Alfonso Al alcohol use, average drinks per day none Ina Naik alcohol use no Ina Naik caffeine use, averag e drinks per day 1 /d Ina Naik drug use no Ina Naik passive cigarette sm jaya exposure yes Ina Naik smoking status Former smoker Ina Pacheco orta social history reviewed E&M revi ewed - no changes required Yannick Santiago MD alcohol use, average drinks per day none Ina Naik caffeine use, averag e drinks per day 1 /d Ina Naik drug use no Ina Naik passive cigarette sm jaya exposure yes Ina Naik smoking status Former smoker Ina Bergman mairvel social history reviewed E&M reviewed Kari Webb social history reviewed E&M reviewed Balbir Zarco RN drug use no Sammy Manacop caffeine use, averag e drinks per day 1 /d Sammy Manacop passive cigarette sm jaya exposure yes Sammy Manacop smoking history, tot al pack/year 1 pack per day for 38 years Sammy Manacop smoking, year quit 1999 Sammy glass smoking status former smoker Sammy Buiac op social history reviewed E&M reviewed Balbir Zarco RN drug use none Yannick Santiago MD social history reviewed E&M reviewed Yannick Santiago MD social history reviewed E&M reviewed Balbir Zarco RN social history reviewed E&M reviewed Balbir Zarco RN social history reviewed E&M reviewed Balbir Zarco RN social history reviewed E&M reviewed Balbir Zarco RN social history reviewed E&M reviewed Balbir Zarco RN social history reviewed E&M reviewed Balbir Zarco RN social history reviewed E&M reviewed Balbir Zarco RN social history E&M Marital Statu s: L marisela with family/friends E thnicity: Balbir Zarco RN social history reviewed E&M reviewed Balbir Zarco RN alcohol use, average drinks per day none [employer] smoking status Quit [employer] FUNCTIONAL STATUS Date Observation Value Provider HRA, CV Assess/Plan, Angina (inactive) Management Plan continue current therapy Yannick Santiago MD HRA, CV Assess/Plan, Angina (inactive) Management Plan continue current therapy Yannick Santiago MD HRA, CV Assess/Plan, Angina (inactive) Management Plan continue current therapy Baldev Jameson HRA, CV Assess/Plan, Angina (inactive) Management Plan continue current therapy Yannick Santiago MD HRA, CV Assess/Plan, Angina (inactive) Management Plan continue current therapy Yannick Santiago MD HRA, CV Assess/Plan, Angina (inactive) Management Plan continue current therapy Mariann Crook HRA, CV Assess/Plan, Angina (inactive) Management Plan continue current therapy Yannick Santiago MD HRA, CV Assess/Plan, Angina (inactive) Management Plan continue current therapy Juliet Naidu HRA, CV Assess/Plan, Angina (inactive) Management Plan continue current therapy Juliet Naidu HRA, CV Assess/Plan, Angina (inactive) Management Plan continue current therapy Alfonso Al HRA, CV Assess/Plan, Angina (inactive) Management Plan continue current therapy Alfonso Al HRA, CV Assess/Plan, Angina (inactive) Management Plan continue current therapy Alfonso Al HRA, CV Assess/Plan, Angina (inactive) Management Plan continue current therapy Yannick Santiago MD HRA, CV Assess/Plan, Angina (inactive) Management Plan continue current therapy Yannick Santiago MD HRA, CV Assess/Plan, Angina (inactive) Management Plan continue current therapy Yannick Santiago MD HRA, CV Assess/Plan, Angina (inactive) Management Plan continue current therapy Yannick Santiago MD MENTAL STATUS Date Observation Value Provider assessment of judgme nt and insight E&M Alert and oriented to time, place and person. Mood and affect are normal. Kari Webb assessment of judgme nt and insight E&M Alert and oriented to time, place and person. Mood and affect are normal. Balbir Zarco RN assessment of judgme nt and insight E&M Alert and oriented to time, place and person. Mood and affect are normal. Balbir Zarco RN assessment of judgme nt and insight E&M Alert and oriented to time, place and person. Mood and affect are normal. Yannick Santiago MD assessment of judgme nt and insight E&M Alert and oriented to time, place and person. Mood and affect are normal. Balbir Zarco RN assessment of judgme nt and insight E&M Alert and oriented to time, place and person. Mood and affect are normal. Balbir Zarco RN assessment of judgme nt and insight E&M Alert and oriented to time, place and person. Mood and affect are normal. Balbir Zarco RN assessment of judgme nt and insight E&M Alert and oriented to time, place and person. Mood and affect are normal. Balbir Zarco RN assessment of judgme nt and insight E&M Alert and oriented to time, place and person. Mood and affect are normal. Balbir Zarco RN assessment of judgme nt and insight E&M Alert and oriented to time, place and person. Mood and affect are normal. Balbir Zarco RN assessment of judgme nt and insight E&M Alert and oriented to time, place and person. Mood and affect are normal. Balbir Zarco RN assessment of judgme nt and insight E&M Alert and oriented to time, place and person. Mood and affect are normal. Balbir Zarco RN assessment of judgme nt and insight E&M Alert and oriented to time, place and person. Mood and affect are normal. Yannick Santiago MD assessment of judgme nt and insight E&M Alert and oriented to time, place and person. Mood and affect are normal. Yannick Santiago MD FAMILY HISTORY Family Member Condition Mother Family History of Green dden Cardiac : Father Family History of Green dden Cardiac : INSURANCE PROVIDERS Payer name Policy type / Coverage type [place] [employer] [place] [place] [employer] Medicare [id number] [facility] [id number] ADVANCE DIRECTIVES Name Date DISCUSSED - NO DECISION MADE TREATMENT PLAN Date Name Performer [id number],C, H er updated medication list for this problem includes: Atorvastatin 10 Mg Tablet (Atorvastatin) ..... Take 1 tablet daily Mariann Crook [id number],C,N o CP or COB. Pacemaker functions well. Mariann Crook [id number],S,P t complains of lower back pain. At this time there is no claudication or foot pain, thus we do not need to move to [facility]. Mariann Crook [id number],W,W ill obtain lab work. BP is elevated. Will increase metoprolol to 25 mg BID. BP today: 176/85 P rior BP: 142/78 (06/17/2022) Labs Reviewed: C reat: 0.84 (01/18/2011) C hol: 169 (07/02/2013) HDL: 48 (07/02/2013) LDL: 65 (01/08/2017) T (07/02/2013) Her updated medication list for this problem includes: Metoprolol Tartrate 25 Mg Tablet (Metoprolol tartrate) ..... 1 tablet by mouth twice a day Aspirin 81 Mg Tablet,delayed Release (dr/ec) (Aspirin) ..... 1 tablet by mouth once a day Mariann Crook [id number],S, A dvised to lose weight. Juliet Naidu [id number],C, H er updated medication list for this problem includes: Atorvastatin 10 Mg Tablet (Atorvastatin) ..... Take 1 tablet daily Juliet Naidu [id number],C, B P today: 142/78 P rior BP: 156/87 (05/01/2022) Labs Reviewed: C reat: 0.84 (01/18/2011) C hol: 169 (07/02/2013) HDL: 48 (07/02/2013) LDL: 65 (01/08/2017) T (07/02/2013) Her updated medication list for this problem includes: Aspirin 81 Mg Tablet,delayed Release (dr/ec) (Aspirin) ..... 1 tablet by mouth once a day Metoprolol Tartrate 25 Mg Tablet (Metoprolol tartrate) ..... 0.5 tablet twice a day Juliet Naidu [id number],C, H er updated medication list for this problem includes: Clopidogrel 75 Mg Tablet (Clopidogrel) ..... Take 1 tablet daily Aspirin 81 Mg Tablet,delayed Release (dr/ec) (Aspirin) ..... 1 tablet by mouth once a day Nitrostat 0.4 Mg Tablet, Sublingual (Nitroglycerin) ..... Apply one tab under tongue every 5 minutes for 3 total doses as needed for chest pain. if no relief after 3rd dose, go to er Metoprolol Tartrate 25 Mg Tablet (Metoprolol tartrate) ..... 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 AT this time she does not have rest pain or open sores. She would like to continue with conservative management. She will call us if her sxs worsen. Julietjackie Liuhuan [id number],C, T he following medications were removed from the medication list: Lipitor 10 Mg Tablet (Atorvastatin) ..... 1 tablet once a day Her updated medication list for this problem includes: Atorvastatin 10 Mg Tablet (Atorvastatin) ..... Take 1 tablet daily Juliet Naidu [id number],C, BP elevated today, states it has been lower in the past. Will linn echo and RPM B P today: 156/87 P rior BP: 134/78 (04/18/2021) Labs Reviewed: C reat: 0.84 (01/18/2011) C hol: 169 (07/02/2013) HDL: 48 (07/02/2013) LDL: 65 (01/08/2017) T (07/02/2013) Her updated medication list for this problem includes: Aspirin 81 Mg Tablet,delayed Release (dr/ec) (Aspirin) ..... 1 tablet by mouth once a day Metoprolol Tartrate 25 Mg Tablet (Metoprolol tartrate) ..... 0.5 tablet twice a day Juliet Naidu [id number],C,T he pt complains of pain in the leg, feels like neuropathy. Will obtain ABIs. BP elevated today, states it has been lower in the past. Will linn uribe and RPM H er updated medication list for this problem includes: Aspirin 81 Mg Tablet,delayed Release (dr/ec) (Aspirin) ..... 1 tablet by mouth once a day Nitrostat 0.4 Mg Tablet, Sublingual (Nitroglycerin) ..... Apply one tab under tongue every 5 minutes for 3 total doses as needed for chest pain. if no relief after 3rd dose, go to er Metoprolol Tartrate 25 Mg Tablet (Metoprolol tartrate) ..... 0.5 tablet twice a day Plavix 75 Mg Tablet (Clopidogrel) ..... Take 1 tablet once a day Juliet Naidu [id number],C,T he pt complains of pain in the leg, feels like neuropathy. Will obtain ABIs. Julietjackie Liuxochilt Cardiology: H er updated medication list for this problem includes: Clopidogrel 75 Mg Tablet (Clopidogrel) ..... Take 1 tablet daily Metoprolol Tartrate 25 Mg Tablet (Metoprolol tartrate) ..... Take 1 tablet by mouth twice a day Nitrostat 0.4 Mg Tablet, Sublingual (Nitroglycerin) ..... Place 1 tablet under tongue for chest pain as needed. may repeat every 5 minutes if still having chest pain- to max of 3 tablets per episode.if no relief after 3rd dose, go to er Yannick Santiago MD Cardiology Yannick Santiago MD Cardiology: H er updated medication list for this problem includes: Atorvastatin 10 Mg Tablet (Atorvastatin) ..... Take 1 tablet by mouth once daily Yannick Santiago MD Cardiology:This visi t has been a part of the consistent, comprehensive, and ongoing management of the chronic medical condition(s) listed above for the patient. BP today: 199/95 P rior BP: 166/85 (02/02/2025) Labs Reviewed: C reat: 0.84 (01/18/2011) C hol: 169 (07/02/2013) HDL: 48 (07/02/2013) LDL: 65 (01/08/2017) T (07/02/2013) Her updated medication list for this problem includes: Metoprolol Tartrate 25 Mg Tablet (Metoprolol tartrate) ..... Take 1 tablet by mouth twice a day Yannick Santiago MD Cardiology Yannick Santiago MD Cardiology Yannick Santiago MD Cardiology:Pt. under went unsuccessful attempt to open right iliac artery. Afterward, we performed CTA. We are planning for intervention with access from arm to be done at [facility] [place] [place] with me and Dr. Paul. Her symptoms include rest pain. Mika Madrigal Cardiology:This visi t has been a part of the consistent, comprehensive, and ongoing management of the chronic medical condition(s) listed above for the patient. BP today: 166/85 P rior BP: 167/84 (12/20/2024) Labs Reviewed: C reat: 0.84 (01/18/2011) C hol: 169 (07/02/2013) HDL: 48 (07/02/2013) LDL: 65 (01/08/2017) T (07/02/2013) Her updated medication list for this problem includes: Metoprolol Tartrate 25 Mg Tablet (Metoprolol tartrate) ..... Take 1 tablet by mouth twice a day Yannick Santiago MD Cardiology: H er updated medication list for this problem includes: Atorvastatin 10 Mg Tablet (Atorvastatin) ..... Take 1 tablet by mouth once daily Yannick Santiago MD Cardiology: H er updated medication list for this problem includes: Clopidogrel 75 Mg Tablet (Clopidogrel) ..... Take 1 tablet by mouth every day Metoprolol Tartrate 25 Mg Tablet (Metoprolol tartrate) ..... Take 1 tablet by mouth twice a day Nitrostat 0.4 Mg Tablet, Sublingual (Nitroglycerin) ..... Place 1 tablet under tongue for chest pain as needed. may repeat every 5 minutes if still having chest pain- to max of 3 tablets per episode.if no relief after 3rd dose, go to er Yannick Santiago MD Cardiology Yannick Santiago MD Cardiology Yannick Santiago MD Cardiology: C ardiac cath revealed BOOTH to LAD patent. Total occlusion of SVGs, 60% stenosis of RCA, normal EF with elevated LVEDP to 39. . Her updated medication list for this problem includes: Clopidogrel 75 Mg Tablet (Clopidogrel) ..... Take 1 tablet by mouth every day Metoprolol Tartrate 25 Mg Tablet (Metoprolol tartrate) ..... Take 1 tablet by mouth twice a day Nitrostat 0.4 Mg Tablet, Sublingual (Nitroglycerin) ..... Place 1 tablet under tongue for chest pain as needed. may repeat every 5 minutes if still having chest pain- to max of 3 tablets per episode.if no relief after 3rd dose, go to er Baldev Jameson Cardiology: H er updated medication list for this problem includes: Atorvastatin 10 Mg Tablet (Atorvastatin) ..... Take 1 tablet by mouth once daily This visit has been a part of the consistent, comprehensive, and ongoing management of the chronic medical condition(s) listed above for the patient. Baldev Jameson Cardiology: B P today: 167/84 P rior BP: 132/64 (08/02/2024) Labs Reviewed: C reat: 0.84 (01/18/2011) C hol: 169 (07/02/2013) HDL: 48 (07/02/2013) LDL: 65 (01/08/2017) T (07/02/2013) Her updated medication list for this problem includes: Metoprolol Tartrate 25 Mg Tablet (Metoprolol tartrate) ..... Take 1 tablet by mouth twice a day This visit has been a part of the consistent, comprehensive, and ongoing management of the chronic medical condition(s) listed above for the patient. Baldev Gisell Cardiology: W e stented the left renal artery and she has total occlusion of right iliac artery. will schedule AIF Baldev Gordonannie Cardiology: S he is still getting SOB and is on oxygen but still sees her oxygen levels lower. Following with Dr. Katie Vinson. Baldev Jameson Cardiology:Had renal artery sten t placed Yannick Santiago MD Cardiology:She is st ill getting SOB and is on oxygen but still sees her oxygen levels lower. Following with Dr. Wilson [facility]. If no improvement with Jardiance and pulmonary treatment, will consider intervention with RCA with IFR. Yannick Santiago MD Cardiology: P rior BP: 132/64 (08/02/2024) Labs Reviewed: C reat: 0.84 (01/18/2011) C hol: 169 (07/02/2013) HDL: 48 (07/02/2013) LDL: 65 (01/08/2017) T (07/02/2013) Her updated medication list for this problem includes: Metoprolol Tartrate 25 Mg Tablet (Metoprolol tartrate) ..... Take 1 tablet by mouth twice a day Yannick Santiago MD Cardiology:Cardiac c ath revealed BOOTH to LAD patent. Total occlusion of SVGs, 60% stenosis of RCA, normal EF with elevated LVEDP to 39. Will start Jardiance 10 daily for HFpEF. H er updated medication list for this problem includes: Clopidogrel 75 Mg Tablet (Clopidogrel) ..... Take 1 tablet by mouth every day Metoprolol Tartrate 25 Mg Tablet (Metoprolol tartrate) ..... Take 1 tablet by mouth twice a day Nitrostat 0.4 Mg Tablet, Sublingual (Nitroglycerin) ..... Place 1 tablet under tongue for chest pain as needed. may repeat every 5 minutes if still having chest pain- to max of 3 tablets per episode.if no relief after 3rd dose, go to er Yannick Santiago MD Cardiology:We stente d the left renal artery and she has total occlusion of right iliac artery. She would like to have intervention of right iliac artery at later time. This visit has been a part of the consistent, comprehensive, and ongoing management of the chronic medical condition(s) listed above for the patient. Yannick Santiago MD Cardiology: B P today: 132/64 P rior BP: 124/74 (05/03/2024) Labs Reviewed: C reat: 0.84 (01/18/2011) C hol: 169 (07/02/2013) HDL: 48 (07/02/2013) LDL: 65 (01/08/2017) T (07/02/2013) Her updated medication list for this problem includes: Metoprolol Tartrate 25 Mg Tablet (Metoprolol tartrate) ..... Take 1 tablet by mouth twice a day Yannick Santiago MD Cardiology: H er updated medication list for this problem includes: Atorvastatin 10 Mg Tablet (Atorvastatin) ..... Take 1 tablet by mouth once daily Yannick Santiago MD Cardiology:Experienc ing significant SOB. Is not interested in intervention at present. Her updated medication list for this problem includes: Clopidogrel 75 Mg Tablet (Clopidogrel) ..... Take 1 tablet by mouth every day Metoprolol Tartrate 25 Mg Tablet (Metoprolol tartrate) ..... Take 1 tablet by mouth twice a day Nitrostat 0.4 Mg Tablet, Sublingual (Nitroglycerin) ..... Place 1 tablet under tongue for chest pain as needed. may repeat every 5 minutes if still having chest pain- to max of 3 tablets per episode.if no relief after 3rd dose, go to er Yannick Santiago MD Cardiology:Patient i s having pain and swelling bilaterally in her legs, with her right leg being worse. 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 She denies intervention at present aYnnick Santiago MD Cardiology Baldev Jameson Cardiology:BP contro lled c ontinue present med regimen T he following medications were removed from the medication list: Metoprolol Tartrate 25 Mg Tablet (Metoprolol tartrate) ..... 1 tablet by mouth twice a day Aspirin 81 Mg Tablet,delayed Release (dr/ec) (Aspirin) ..... 1 tablet by mouth once a day Her updated medication list for this problem includes: Metoprolol Tartrate 25 Mg Tablet (Metoprolol tartrate) ..... Take 1 tablet by mouth twice a day Baldev Jameson Cardiology:moderate per last sleep study S tates cannot use CPAP Baldev Jameson Cardiology:normal de vice function n o arrhythmia on last remote check Baldev Jameson Cardiology:She denie s any chest pain or pressure H as some chronic SOB R emains on BB, statin and plavix W ill do f/u stress test for further evalution will do lexiscan stress as cannot ambulate d/t hip and leg pain The following medications were removed from the medication list: Metoprolol Tartrate 25 Mg Tablet (Metoprolol tartrate) ..... 1 tablet by mouth twice a day Clopidogrel 75 Mg Tablet (Clopidogrel) ..... Take 1 tablet daily Aspirin 81 Mg Tablet,delayed Release (dr/ec) (Aspirin) ..... 1 tablet by mouth once a day Her updated medication list for this problem includes: Clopidogrel 75 Mg Tablet (Clopidogrel) ..... Take 1 tablet by mouth every day Metoprolol Tartrate 25 Mg Tablet (Metoprolol tartrate) ..... Take 1 tablet by mouth twice a day Nitrostat 0.4 Mg Tablet, Sublingual (Nitroglycerin) ..... Place 1 tablet under tongue for chest pain as needed. may repeat every 5 minutes if still having chest pain- to max of 3 tablets per episode.if no relief after 3rd dose, go to er Baldev Jameson Cardiology:She denie s any chest pain or pressure H as some chronic SOB R emains on BB, statin and plavix W ill do f/u stress test for further evalution The following medications were removed from the medication list: Metoprolol Tartrate 25 Mg Tablet (Metoprolol tartrate) ..... 1 tablet by mouth twice a day Clopidogrel 75 Mg Tablet (Clopidogrel) ..... Take 1 tablet daily Aspirin 81 Mg Tablet,delayed Release (dr/ec) (Aspirin) ..... 1 tablet by mouth once a day Her updated medication list for this problem includes: Clopidogrel 75 Mg Tablet (Clopidogrel) ..... Take 1 tablet by mouth every day Metoprolol Tartrate 25 Mg Tablet (Metoprolol tartrate) ..... Take 1 tablet by mouth twice a day Nitrostat 0.4 Mg Tablet, Sublingual (Nitroglycerin) ..... Place 1 tablet under tongue for chest pain as needed. may repeat every 5 minutes if still having chest pain- to max of 3 tablets per episode.if no relief after 3rd dose, go to er [facility]Has had a bnormal ZACHARY in 2021 and iliac stenting in 2016 H er RLE is worse than the right, discussed repeat angiogram, patient however feels pain more related to arthritis and given tender to touch, so will refer to orthopedic physician for further eval, if no relief will re-evaluate [facility] Cardiology: H er updated medication list for this problem includes: Atorvastatin 10 Mg Tablet (Atorvastatin) ..... Take 1 tablet daily [facility]:No CP or COB. Pacemak er functions well. [facility] Cardiology:Pt compla ins of lower back pain. At this time there is no claudication or foot pain, thus we do not need to move to [facility]. Mariann [facility] Cardiology:Will obta in lab work. BP is elevated. Will increase metoprolol to 25 mg BID. BP today: 176/85 P rior BP: 142/78 (06/17/2022) Labs Reviewed: C reat: 0.84 (01/18/2011) C hol: 169 (07/02/2013) HDL: 48 (07/02/2013) LDL: 65 (01/08/2017) T (07/02/2013) Her updated medication list for this problem includes: Metoprolol Tartrate 25 Mg Tablet (Metoprolol tartrate) ..... 1 tablet by mouth twice a day Aspirin 81 Mg Tablet,delayed Release (dr/ec) (Aspirin) ..... 1 tablet by mouth once a day Mariann Crook Cardiology: A dvised to lose weight. Juliet Naidu Cardiology: H er updated medication list for this problem includes: Atorvastatin 10 Mg Tablet (Atorvastatin) ..... Take 1 tablet daily Juliet Naidu Cardiology: B P today: 142/78 P rior BP: 156/87 (05/01/2022) Labs Reviewed: C reat: 0.84 (01/18/2011) C hol: 169 (07/02/2013) HDL: 48 (07/02/2013) LDL: 65 (01/08/2017) T (07/02/2013) Her updated medication list for this problem includes: Aspirin 81 Mg Tablet,delayed Release (dr/ec) (Aspirin) ..... 1 tablet by mouth once a day Metoprolol Tartrate 25 Mg Tablet (Metoprolol tartrate) ..... 0.5 tablet twice a day Juliet Naidu Cardiology: H er updated medication list for this problem includes: Clopidogrel 75 Mg Tablet (Clopidogrel) ..... Take 1 tablet daily Aspirin 81 Mg Tablet,delayed Release (dr/ec) (Aspirin) ..... 1 tablet by mouth once a day Nitrostat 0.4 Mg Tablet, Sublingual (Nitroglycerin) ..... Apply one tab under tongue every 5 minutes for 3 total doses as needed for chest pain. if no relief after 3rd dose, go to er Metoprolol Tartrate 25 Mg Tablet (Metoprolol tartrate) ..... 0.5 tablet twice a day Juliet Naidu Cardiology:ABIS reve aled significant stenosis of the right iliac/femoral artery and left tibial arteries. AT this time she does not have rest pain or open sores. She would like to continue with conservative management. She will call us if her sxs worsen. Juliet Evangelista Cardiology[RxRsp]: T he following medications were removed from the medication list: Lipitor 10 Mg Tablet (Atorvastatin) ..... 1 tablet once a day Her updated medication list for this problem includes: Atorvastatin 10 Mg Tablet (Atorvastatin) ..... Take 1 tablet daily Juliet Evangelista Cardiology[RxRsp]: B P elevated today, states it has been lower in the past. Will obtian echo and RPM B P today: 156/87 P rior BP: 134/78 (04/18/2021) Labs Reviewed: C reat: 0.84 (01/18/2011) C hol: 169 (07/02/2013) HDL: 48 (07/02/2013) LDL: 65 (01/08/2017) T (07/02/2013) Her updated medication list for this problem includes: Aspirin 81 Mg Tablet,delayed Release (dr/ec) (Aspirin) ..... 1 tablet by mouth once a day Metoprolol Tartrate 25 Mg Tablet (Metoprolol tartrate) ..... 0.5 tablet twice a day Juliet Naidu Cardiology[RxRsp]:Th e pt complains of pain in the leg, feels like neuropathy. Will obtain ABIs. BP elevated today, states it has been lower in the past. Will obtian echo and RPM H er updated medication list for this problem includes: Aspirin 81 Mg Tablet,delayed Release (dr/ec) (Aspirin) ..... 1 tablet by mouth once a day Nitrostat 0.4 Mg Tablet, Sublingual (Nitroglycerin) ..... Apply one tab under tongue every 5 minutes for 3 total doses as needed for chest pain. if no relief after 3rd dose, go to er Metoprolol Tartrate 25 Mg Tablet (Metoprolol tartrate) ..... 0.5 tablet twice a day Plavix 75 Mg Tablet (Clopidogrel) ..... Take 1 tablet once a day Juliet Naidu Cardiology[RxRsp]:Th e pt complains of pain in the leg, feels like neuropathy. Will obtain ABIs. Juliet Naidu Cardiology:Advised to lose weigh t. Juliet Naidu Cardiology:CHOL: 169 (07/02/2013) LDL: 65 (01/08/2017) HDL: 48 (07/02/2013) T (07/02/2013) Her updated medication list for this problem includes: Lipitor 10 Mg Oral Tablet (Atorvastatin calcium) ..... One tab. daily Juliet Naidu Cardiology:Pacemaker revealed episodes of atrial fibrillation, longest being 2 hours. She denies any sx of SOB or chest pain. We discussed [place] trial, at this time she is not interested. If she has further episodes, I will call her to discuss. She will continue on her medications and f/u in a year. Juliet Naidu Cardiology: B P today: 134/78 P rior BP: 140/80 (04/17/2020) Labs Reviewed: C reat: 0.84 (01/18/2011) C hol: 169 (07/02/2013) HDL: 48 (07/02/2013) LDL: 65 (01/08/2017) T (07/02/2013) Her updated medication list for this problem includes: Aspirin Adult Low Dose 81 Mg Oral Tablet Delayed Release (Aspirin) ..... One tab by mouth daily Metoprolol Tartrate 25 Mg Oral Tablet (Metoprolol tartrate) ..... 1/2 tab twice daily Juliet Liuhuan Cardiology:She's int erested in losing weight. We discussed the [facility] trial. [facility] Cardiology:Her updat ed medication list for this problem includes: Lipitor 10 Mg Oral Tablet (Atorvastatin calcium) ..... One tab. daily Alfonso [facility] Cardiology:BP today: 140/80 P rior BP: 130/64 (03/22/2019) Her updated medication list for this problem includes: Metoprolol Tartrate 25 Mg Oral Tablet (Metoprolol tartrate) ..... 1/2 tab twice daily [facility]so [facility] Cardiology:Denies cl audication. We discussed the [facility] trial. [facility] Cardiology:Overall f eeling well. Denies chest pain, SOB. Will obtain a f/u echo. Her updated medication list for this problem includes: Plavix 75 Mg Oral Tablet (Clopidogrel bisulfate) ..... Take 1 tab daily Nitrostat 0.4 Mg Sublingual Tablet Sublingual (Nitroglycerin) ..... Apply one tab under tongue every 5 minutes for 3 total doses as needed for chest pain. if no relief after 3rd dose, go to er Aspirin Adult Low Dose 81 Mg Oral Tablet Delayed Release (Aspirin) ..... One tab by mouth daily Metoprolol Tartrate 25 Mg Oral Tablet (Metoprolol tartrate) ..... 1/2 tab twice daily [facility] Cardiology follow up :She says cholesterol is well controlled. Her updated medication list for this problem includes: Lipitor 10 Mg Oral Tablet (Atorvastatin calcium) ..... One tab. daily [facility] Cardiology follow up :BP today: 130/64 P rior BP: 136/70 (03/02/2018) Her updated medication list for this problem includes: Metoprolol Tartrate 25 Mg Oral Tablet (Metoprolol tartrate) ..... 1/2 tab twice daily [facility] Cardiology follow up :Carotid duplex last year showed < 50% stenosis b/l. Hx of R CEA in 2010. Will obtain f/u carotid duplex. [facility] Cardiology follow up :ZACHARY's last year showed the stents were patent. [facility] Cardiology follow up :Pacemaker check today shows it is functioning well. [facility] Cardiology follow up :No chest pain or SOB. Her updated medication list for this problem includes: Plavix 75 Mg Oral Tablet (Clopidogrel bisulfate) ..... Take 1 tab daily Nitrostat 0.4 Mg Sublingual Tablet Sublingual (Nitroglycerin) ..... Apply one tab under tongue every 5 minutes for 3 total doses as needed for chest pain. if no relief after 3rd dose, go to er Aspirin Adult Low Dose 81 Mg Oral Tablet Delayed Release (Aspirin) ..... One tab by mouth daily Metoprolol Tartrate 25 Mg Oral Tablet (Metoprolol tartrate) ..... 1/2 tab twice daily [facility] Cardiology Follow up :BP today: 136/70 P rior BP: 110/60 (03/10/2017) Her updated medication list for this problem includes: Metoprolol Tartrate 25 Mg Oral Tablet (Metoprolol tartrate) ..... 1/2 tab twice daily [facility] Cardiology Follow up :No chest pain or SOB. Her updated medication list for this problem includes: Plavix 75 Mg Oral Tablet (Clopidogrel bisulfate) ..... Take 1 tab daily Nitrostat 0.4 Mg Sublingual Tablet Sublingual (Nitroglycerin) ..... Apply one tab under tongue every 5 minutes for 3 total doses as needed for chest pain. if no relief after 3rd dose, go to er Aspirin 81 Mg Oral Tablet (Aspirin) ..... 1 tablet by mouth daily Metoprolol Tartrate 25 Mg Oral Tablet (Metoprolol tartrate) ..... 1/2 tab twice daily [facility] Cardiology Follow up :Will obtain f/u carotid duplex. [facility] Cardiology Follow up :The pt complains of some pain in the legs. Will obtain ZACHARY's. [facility] Cardiology Follow up :Exercise and weight loss advised. [facility] Cardiology Follow up :BP today: 110/60 P rior BP: 154/81 (01/08/2017) Her updated medication list for this problem includes: Aspirin 81 Mg Tabs (Aspirin) ..... 1 tablet by mouth daily Metoprolol Tartrate 25 Mg Tabs (Metoprolol tartrate) ..... 1/2 tab twice daily [facility] Cardiology Follow up :Pacemaker check today was normal. [facility] Cardiology Follow up :S/P CABG x3 (BOOTH-LAD, SVG-OM1, SVG-RCA) on 04/26/2009. Her updated medication list for this problem includes: Plavix 75 Mg Oral Tabs (Clopidogrel bisulfate) ..... Take 1 tab daily Nitrostat 0.4 Mg Sl Subl (Nitroglycerin) Aspirin 81 Mg Tabs (Aspirin) ..... 1 tablet by mouth daily Metoprolol Tartrate 25 Mg Tabs (Metoprolol tartrate) ..... 1/2 tab twice daily [facility] Cardiology Follow up :No chest pain or SOB. Her updated medication list for this problem includes: Plavix 75 Mg Oral Tabs (Clopidogrel bisulfate) ..... Take 1 tab daily Nitrostat 0.4 Mg Sl Subl (Nitroglycerin) Aspirin 81 Mg Tabs (Aspirin) ..... 1 tablet by mouth daily Metoprolol Tartrate 25 Mg Tabs (Metoprolol tartrate) ..... 1/2 tab twice daily [facility] Follow up :S/P stenting of the iliac arteries bilaterally with great symptomatic improvement. [facility] Follow up :S/P stenting of the iliac arteries bilaterally with great symptomatic improvement. [facility]:BP today: 154/81 P rior BP: 110/70 (09/02/2016) Her updated medication list for this problem includes: Aspirin 81 Mg Tabs (Aspirin) ..... 1 tablet by mouth daily Metoprolol Tartrate 25 Mg Tabs (Metoprolol tartrate) ..... 1/2 tab twice daily [facility]:Orders: S lee Study Home (CPT-68932) STOP BANG score is at least 3. [facility]:Carotid d uplex did not show significant stenosis. [facility]:Myoview s can and echo were essentially normal. Her updated medication list for this problem includes: Nitrostat 0.4 Mg Sl Subl (Nitroglycerin) Aspirin 81 Mg Tabs (Aspirin) ..... 1 tablet by mouth daily Metoprolol Tartrate 25 Mg Tabs (Metoprolol tartrate) ..... 1/2 tab twice daily [facility] Card[facility]:ZACHARY's sug gested severe PAD involving the iliac arteries bilaterally. WIll schedule AIF. [facility] Card[facility]:ZACHARY's sug gested severe PAD involving the iliac arteries bilaterally. WIll schedule AIF. [facility] Follow up:BP today: 110/70 P rior BP: 141/71 (03/18/2016) The following medications were removed from the medication list: Furosemide 20 Mg Oral Tabs (Furosemide) ..... One tab daily as needed Her updated medication list for this problem includes: Aspirin 81 Mg Tabs (Aspirin) ..... 1 tablet by mouth daily Metoprolol Tartrate 25 Mg Tabs (Metoprolol tartrate) ..... 1/2 tab twice daily [facility] Follow up:Orders: C arotid Duplex Bilateral (CPT-05889) [facility] Follow up: She complains of claudication of both legs with minimal walking. Will obtain ZACHARY's. [facility] Follow up:Pt had a recent visit to the hospital due to chest pain. CA was ruled out. Will obtain a stress myoview. [facility]:CHOL: 169 (07/02/2013) LDL: 80 (07/02/2013) HDL: 48 (07/02/2013) T (07/02/2013) Her updated medication list for this problem includes: Lipitor 10 Mg Tabs (Atorvastatin calcium) ..... One tab. daily [facility]:S/P gener ator change on February 21, 2016. Device is functioning well. [facility]:BP today: 141/71 P rior BP: 134/60 (03/20/2015) Her updated medication list for this problem includes: Furosemide 20 Mg Oral Tabs (Furosemide) ..... One tab daily as needed Aspirin 81 Mg Tabs (Aspirin) ..... 1 tablet by mouth daily Metoprolol Tartrate 25 Mg Tabs (Metoprolol tartrate) ..... 1/2 tab twice daily [facility] follow up and pacema ker check: H er updated medication list for this problem includes: Lipitor 10 Mg Tabs (Atorvastatin calcium) ..... One tab. daily Aspirin 81 Mg Tabs (Aspirin) ..... 1 tablet by mouth daily Metoprolol Tartrate 25 Mg Tabs (Metoprolol tartrate) ..... 1/2 tab twice daily BP today: 115/67 Prior BP: 135/78 (04/02/2010) N uclear Stress Findings: Adenosine mediated myocardial perfusion study N ormal left ventricular systolic function with a calculated ejection fraction of 66%. M yocardial scintigraphy demonstrates a small revesible anteroseptal and apical defect consistent with ischemia SL (04/07/2009) C ardiac Cath: 50-60% stenosis of the distal left main coronarya rtery. 40% stenosis of the LAD. 80% stenosis of the RCA. Normal EF 55%. 70% stenosis of the left renal artery. PCL-[facility] (04/14/2009) C arotid Doppler/Duplex: 50 - 69% stenosis of the right ICA. <50% stenosis of the left ICA. GC (10/30/2009) C K: 124 (10/01/2009) CHOL: 152 (10/02/2009) LDL: 73 (10/02/2009) HDL: 46 (10/02/2009) T (10/02/2009) H gb: 13.1 (10/01/2009) HCT: 38.6 (10/01/2009) RBC: 4.13 (10/01/2009) WBC: 4.5 (10/01/2009) B UN: 16 (10/01/2009) Creat: 1.03 (10/01/2009) Glucose: 120 (10/01/2009) N a+: 136 (10/01/2009) K+: 3.7 (10/01/2009) Cl: 106 (10/01/2009) PT: 10.3 (10/01/2009) INR: 1.0 (10/01/2009) PTT: 29.2 (10/01/2009) T SH: 3.09 (08/03/2009) O rders: E KG (CPT-27947) Indra Alba MD follow up and pacema ker check: H er updated medication list for this problem includes: Aspirin 81 Mg Tabs (Aspirin) ..... 1 tablet by mouth daily Metoprolol Tartrate 25 Mg Tabs (Metoprolol tartrate) ..... 1/2 tab twice daily BP today: 115/67 Prior BP: 135/78 (04/02/2010) N uclear Stress Findings: Adenosine mediated myocardial perfusion study N ormal left ventricular systolic function with a calculated ejection fraction of 66%. M yocardial scintigraphy demonstrates a small revesible anteroseptal and apical defect consistent with ischemia [facility] (04/07/2009) C ardiac Cath: 50-60% stenosis of the distal left main coronarya rtery. 40% stenosis of the LAD. 80% stenosis of the RCA. Normal EF 55%. 70% stenosis of the left renal artery. PCL-[facility] (04/14/2009) C arotid Doppler/Duplex: 50 - 69% stenosis of the right ICA. <50% stenosis of the left ICA. GC (10/30/2009) C K: 124 (10/01/2009) CHOL: 152 (10/02/2009) LDL: 73 (10/02/2009) HDL: 46 (10/02/2009) T (10/02/2009) H gb: 13.1 (10/01/2009) HCT: 38.6 (10/01/2009) RBC: 4.13 (10/01/2009) WBC: 4.5 (10/01/2009) B UN: 16 (10/01/2009) Creat: 1.03 (10/01/2009) Glucose: 120 (10/01/2009) N a+: 136 (10/01/2009) K+: 3.7 (10/01/2009) Cl: 106 (10/01/2009) PT: 10.3 (10/01/2009) INR: 1.0 (10/01/2009) P TT: 29.2 (10/01/2009) T SH: 3.09 (08/03/2009) Echocardiogram: Normal left ventricular systolic function. Normal left ventricular size. Normal left ventricular wall thickness. There is E to A wave reversal consistent with impaired LV relaxation . Normal E/E` 9.0. Left ventricular ejection fraction is estimated at 57%. No significant valvular abnormalities. (04/02/2010) Indra Alba MD follow up and pacema ker check: H er updated medication list for this problem includes: Lipitor 10 Mg Tabs (Atorvastatin calcium) ..... One tab. daily BP today: 115/67 Prior BP: 135/78 (04/02/2010) C HOL: 152 (10/02/2009) LDL: 73 (10/02/2009) HDL: 46 (10/02/2009) T (10/02/2009) Indra Alba MD follow up and pacemaker check To cory Alba MD follow up and pacema ker check: H er updated medication list for this problem includes: Aspirin 81 Mg Tabs (Aspirin) ..... 1 tablet by mouth daily Xanax 0.5 Mg Tabs (Alprazolam) ..... 1 tablet by mouth as needed Metoprolol Tartrate 25 Mg Tabs (Metoprolol tartrate) ..... 1/2 tab twice daily Indra Alba MD follow up and pacema ker check: H er updated medication list for this problem includes: Aspirin 81 Mg Tabs (Aspirin) ..... 1 tablet by mouth daily Xanax 0.5 Mg Tabs (Alprazolam) ..... 1 tablet by mouth as needed Metoprolol Tartrate 25 Mg Tabs (Metoprolol tartrate) ..... 1/2 tab twice daily Indra Alba MD follow up and pacema ker check: H er updated medication list for this problem includes: Aspirin 81 Mg Tabs (Aspirin) ..... 1 tablet by mouth daily Metoprolol Tartrate 25 Mg Tabs (Metoprolol tartrate) ..... 1/2 tab twice daily BP today: 115/67 P rior BP: 135/78 (04/02/2010) Labs Reviewed: C reat: 1.03 (10/01/2009) C hol: 152 (10/02/2009) HDL: 46 (10/02/2009) LDL: 73 (10/02/2009) T (10/02/2009) Indra Alba MD PM check with f?u: H er updated medication list for this problem includes: Aspirin 81 Mg Tabs (Aspirin) ..... 1 tablet by mouth daily Xanax 0.5 Mg Tabs (Alprazolam) ..... 1 tablet by mouth as needed Metoprolol Tartrate 25 Mg Tabs (Metoprolol tartrate) ..... 1/2 tab twice daily Yannick Santiago MD PM check with f?u: H er updated medication list for this problem includes: Aspirin 81 Mg Tabs (Aspirin) ..... 1 tablet by mouth daily Xanax 0.5 Mg Tabs (Alprazolam) ..... 1 tablet by mouth as needed Metoprolol Tartrate 25 Mg Tabs (Metoprolol tartrate) ..... 1/2 tab twice daily Yannick Santiago MD Follow-up s/p Pacema ker Implant: H er updated medication list for this problem includes: Aspirin 81 Mg Tabs (Aspirin) ..... 1 tablet by mouth daily Xanax 0.5 Mg Tabs (Alprazolam) ..... 1 tablet by mouth as needed Plavix 75 Mg Tabs (Clopidogrel bisulfate) ..... One tab. daily Yannick Santiago MD Follow-up s/p Pacema ker Implant: H er updated medication list for this problem includes: Aspirin 81 Mg Tabs (Aspirin) ..... 1 tablet by mouth daily Xanax 0.5 Mg Tabs (Alprazolam) ..... 1 tablet by mouth as needed Plavix 75 Mg Tabs (Clopidogrel bisulfate) ..... One tab. daily Yannick Santiago MD follow-up re: palpit ations: H er updated medication list for this problem includes: Aspirin 81 Mg Tabs (Aspirin) ..... 1 tablet by mouth daily Lipitor 10 Mg Tabs (Atorvastatin calcium) ..... One tab. daily BP today: 154/87 Prior BP: 152/90 (07/03/2009) N uclear Stress Findings: Adenosine mediated myocardial perfusion study N ormal left ventricular systolic function with a calculated ejection fraction of 66%. M yocardial scintigraphy demonstrates a small revesible anteroseptal and apical defect consistent with ischemia [facility] (04/07/2009) C ardiac Cath: 50-60% stenosis of the distal left main coronarya rtery. 40% stenosis of the LAD. 80% stenosis of the RCA. Normal EF 55%. 70% stenosis of the left renal artery. PCL-[facility] (04/14/2009) C K: 141 (02/24/2009) Hgb: 14.2 (02/26/2009) HCT: 39.6 (02/26/2009) RBC: 4.13 (02/26/2009) WBC: 5 (02/26/2009) B UN: 13 (08/03/2009) Creat: 0.9 (08/03/2009) Glucose: 109 (08/03/2009) N a+: 138 (08/03/2009) K+: 4.1 (08/03/2009) Cl: 104 (08/03/2009) PT: 12.2 (04/13/2009) INR: 1.2 (04/13/2009) T SH: 3.09 (08/03/2009) Yannick Santiago MD follow-up re: palpit ations: H er updated medication list for this problem includes: Aspirin 81 Mg Tabs (Aspirin) ..... 1 tablet by mouth daily BP today: 154/87 Prior BP: 152/90 (07/03/2009) N uclear Stress Findings: Adenosine mediated myocardial perfusion study N ormal left ventricular systolic function with a calculated ejection fraction of 66%. M yocardial scintigraphy demonstrates a small revesible anteroseptal and apical defect consistent with ischemia [facility] (04/07/2009) C ardiac Cath: 50-60% stenosis of the distal left main coronarya rtery. 40% stenosis of the LAD. 80% stenosis of the RCA. Normal EF 55%. 70% stenosis of the left renal artery. PCL-[facility] (04/14/2009) C K: 141 (02/24/2009) Hgb: 14.2 (02/26/2009) HCT: 39.6 (02/26/2009) RBC: 4.13 (02/26/2009) WBC: 5 (02/26/2009) B UN: 13 (08/03/2009) Creat: 0.9 (08/03/2009) Glucose: 109 (08/03/2009) N a+: 138 (08/03/2009) K+: 4.1 (08/03/2009) Cl: 104 (08/03/2009) PT: 12.2 (04/13/2009) INR: 1.2 (04/13/2009) T SH: 3.09 (08/03/2009) Yannick Santiago MD follow-up re: palpit ations: H er updated medication list for this problem includes: Lipitor 10 Mg Tabs (Atorvastatin calcium) ..... One tab. daily BP today: 154/87 Prior BP: 152/90 (07/03/2009) Yannick Santiago MD follow-up re: palpit ations: H er updated medication list for this problem includes: Xanax 0.5 Mg Tabs (Alprazolam) ..... 1 tablet by mouth as needed Aspirin 81 Mg Tabs (Aspirin) ..... 1 tablet by mouth daily Orders: E KG (CPT-[id number]) Yannick Santiago MD test results: H er updated medication list for this problem includes: Aspirin 81 Mg Tabs (Aspirin) ..... 1 tablet by mouth daily BP today: 152/90 Prior BP: 154/91 (06/26/2009) N uclear Stress Findings: Adenosine mediated myocardial perfusion study N ormal left ventricular systolic function with a calculated ejection fraction of 66%. M yocardial scintigraphy demonstrates a small revesible anteroseptal and apical defect consistent with ischemia [facility] (04/07/2009) C ardiac Cath: 50-60% stenosis of the distal left main coronarya rtery. 40% stenosis of the LAD. 80% stenosis of the RCA. Normal EF 55%. 70% stenosis of the left renal artery. PCL-[facility] (04/14/2009) C K: 141 (02/24/2009) Hgb: 14.2 (02/26/2009) HCT: 39.6 (02/26/2009) RBC: 4.13 (02/26/2009) WBC: 5 (02/26/2009) B UN: 12 (02/26/2009) Creat: 1.0 (02/26/2009) Glucose: 91 (02/26/2009) N a+: 140 (02/26/2009) K+: 3.8 (02/26/2009) Cl: 107 (02/26/2009) PT: 12.2 (04/13/2009) INR: 1.2 (04/13/2009) Yannick Santiago MD test results: B P today: 152/90 Prior BP: 154/91 (06/26/2009) Her updated medication list for this problem includes: Lipitor 10 Mg Tabs (Atorvastatin calcium) ..... One tab. daily Yannick Santiago MD palpitations: H er updated medication list for this problem includes: Xanax 0.5 Mg Tabs (Alprazolam) ..... 1 tablet by mouth as needed Metoprolol Tartrate 25 Mg Tabs (Metoprolol tartrate) ..... 1/2 tablet by mouth every 12 hours Aspirin 81 Mg Tabs (Aspirin) ..... 1 tablet by mouth daily Orders: H olter Monitor 24 Hr (CPT-[id number]) Yannick Santiago MD palpitations: H er updated medication list for this problem includes: Metoprolol Tartrate 25 Mg Tabs (Metoprolol tartrate) ..... 1/2 tablet by mouth every 12 hours Aspirin 81 Mg Tabs (Aspirin) ..... 1 tablet by mouth daily BP today: 154/91 Prior BP: 124/71 (06/05/2009) N uclear Stress Findings: Adenosine mediated myocardial perfusion study N ormal left ventricular systolic function with a calculated ejection fraction of 66%. M yocardial scintigraphy demonstrates a small revesible anteroseptal and apical defect consistent with ischemia [facility] (04/07/2009) Cardiac Cath: 50-60% stenosis of the distal left main coronarya rtery. 40% stenosis of the LAD. 80% stenosis of the RCA. Normal EF 55%. 70% stenosis of the left renal artery. PCL-[facility] (04/14/2009) C K: 141 (02/24/2009) Hgb: 14.2 (02/26/2009) HCT: 39.6 (02/26/2009) RBC: 4.13 (02/26/2009) WBC: 5 (02/26/2009) B UN: 12 (02/26/2009) Creat: 1.0 (02/26/2009) Glucose: 91 (02/26/2009) Na+: 140 (02/26/2009) K+: 3.8 (02/26/2009) Cl: 107 (02/26/2009) PT: 12.2 (04/13/2009) INR: 1.2 (04/13/2009) Orders: E KG (CPT-[id number]) Yannick Santiago MD palpitations: H er updated medication list for this problem includes: Metoprolol Tartrate 25 Mg Tabs (Metoprolol tartrate) ..... 1/2 tablet by mouth every 12 hours Aspirin 81 Mg Tabs (Aspirin) ..... 1 tablet by mouth daily BP today: 154/91 Prior BP: 124/71 (06/05/2009) N uclear Stress Findings: Adenosine mediated myocardial perfusion study N ormal left ventricular systolic function with a calculated ejection fraction of 66%. M yocardial scintigraphy demonstrates a small revesible anteroseptal and apical defect consistent with ischemia [facility] (04/07/2009) Cardiac Cath: 50-60% stenosis of the distal left main coronarya rtery. 40% stenosis of the LAD. 80% stenosis of the RCA. Normal EF 55%. 70% stenosis of the left renal artery. PCL-[facility] (04/14/2009) C K: 141 (02/24/2009) Hgb: 14.2 (02/26/2009) HCT: 39.6 (02/26/2009) RBC: 4.13 (02/26/2009) WBC: 5 (02/26/2009) B UN: 12 (02/26/2009) Creat: 1.0 (02/26/2009) Glucose: 91 (02/26/2009) Na+: 140 (02/26/2009) K+: 3.8 (02/26/2009) Cl: 107 (02/26/2009) PT: 12.2 (04/13/2009) INR: 1.2 (04/13/2009) Yannick Santiago MD palpitations: B P today: 154/91 Prior BP: 124/71 (06/05/2009) Yannick Santiago MD Stress Test Follow-u p: B P today: 124/71 Prior BP: 204/108 (04/13/2009) Yannick Santiago MD Stress Test Follow-u p: H er updated medication list for this problem includes: Metoprolol Tartrate 25 Mg Tabs (Metoprolol tartrate) ..... 1/2 tablet by mouth every 12 hours Aspirin 81 Mg Tabs (Aspirin) ..... 1 tablet by mouth daily BP today: 124/71 Prior BP: 204/108 (04/13/2009) N uclear Stress Findings: Adenosine mediated myocardial perfusion study N ormal left ventricular systolic function with a calculated ejection fraction of 66%. M yocardial scintigraphy demonstrates a small revesible anteroseptal and apical defect consistent with ischemia [facility] (04/07/2009) C ardiac Cath: 50-60% stenosis of the distal left main coronarya rtery. 40% stenosis of the LAD. 80% stenosis of the RCA. Normal EF 55%. 70% stenosis of the left renal artery. PCL-[facility] (04/14/2009) C K: 141 (02/24/2009) Hgb: 14.2 (02/26/2009) HCT: 39.6 (02/26/2009) RBC: 4.13 (02/26/2009) WBC: 5 (02/26/2009) B UN: 12 (02/26/2009) Creat: 1.0 (02/26/2009) Glucose: 91 (02/26/2009) N a+: 140 (02/26/2009) K+: 3.8 (02/26/2009) Cl: 107 (02/26/2009) PT: 12.2 (04/13/2009) INR: 1.2 (04/13/2009) Yannick Santiago MD FU ABN STRESS: O rders: C ardiac Cath - PCL (*) Yannick Santiago MD Date Name PROTHROMBIN TIME WIT H INR LIPID PANEL CBC (INCLUDES DIFF/P LT) BASIC METABOLIC PANE L W/EGFR AIF Intevention FEM/POP, ATHER+BIOLOGICAL AIDE+S TENT FEM/POP, LITHOTRIPSY +ATHER+BIOLOGICAL AIDE+STENT ILIAC, BIOLOGICAL AIDE W STENT ILIAC, LITHOTRIPSY+S TENT Iliac Stent Brachial, right, acc ess PSC PROCEDURES PROTHROMBIN TIME WIT H INR LIPID PANEL CBC (INCLUDES DIFF/P LT) BASIC METABOLIC PANE L W/EGFR TIB/PERONEAL, BIOLOGICAL AIDE TIB/PERONEAL, LITHOT RIPSY+BIOLOGICAL AIDE TIB/PERONEAL, LITHOT RIPSY+BIOLOGICAL AIDE+STENT TIB/PERONEAL, ATHER+ BIOLOGICAL AIDE TIB/PERONEAL, LITHOT RIPSY+ATHER+BIOLOGICAL AIDE Iliac Stent TIB/PERONEAL, ATHER+ BIOLOGICAL AIDE+STENT TIB/PERONEAL, LITHOT RIPSY+ATHER+BIOLOGICAL AIDE+STENT AIF Intevention FEM/POP, BIOLOGICAL AIDE FEM/POP, LITHOTRIPSY +BIOLOGICAL AIDE AIF Intevention FEM/POP, BIOLOGICAL AIDE+STENT FEM/POP, LITHOTRIPSY +STENT FEM/POP, ATHER+BIOLOGICAL AIDE+S TENT FEM/POP, LITHOTRIPSY +ATHER+BIOLOGICAL AIDE+STENT FEM/POP, ATHER+BIOLOGICAL AIDE FEM/POP, LITHOTRIPSY +ATHER+BIOLOGICAL AIDE ILIAC, BIOLOGICAL AIDE ILIAC, LITHOTRIPSY+P TA AIF Intevention ILIAC, BIOLOGICAL AIDE W STENT ILIAC, LITHOTRIPSY+S TENT Iliac Stent Bilateral lower extr emities procedure [facility] PROCEDURES PROTHROMBIN TIME WIT H INR LIPID PANEL Carotid Duplex Bilat eral Stress Regadenoson Complete Echo LIPID PANEL CRP, high sensitivit y Lipoprotein (a) PROBNP, N TERMINAL BASIC METABOLIC PANE L W/EGFR Microalb/Creatinine Urine, Random HEMOGLOBIN A1c BASIC METABOLIC PANE L W/EGFR Arterial Duplex Bi-L ower EX Complete Echo RPM (remote patient monitoring) COVID19 nasal swab ( LC) Covid Antibody IgA ( LC) Covid Antibody IgM ( LC) Complete Echo Carotid Duplex Bilat eral Carotid Duplex Bilat eral Arterial Duplex Bi-L ower EX Sleep Study Home AIF - [facility] Complete Echo STR - Adenosine Carotid Duplex Bilat eral Arterial Duplex Bi-L ower EX Renal Artery Duplex Venous Doppler Bilat eral LE - Standing Carotid Duplex Bilat eral Complete Echo Lipid Panel Stress Test - Adenos ine Complete Echo Carotid Duplex Bilat eral Complete Echo Pacemaker Dual Chamb er - GC Holter Monitor 24 Hr Cardiac Cath - PCL HISTORY OF PROCEDURES Procedure Date Procedure Name Provider Procedure Notes S tatus Complex e/m visit ad d on Yannick Santiago MD completed Complex e/m visit ad d on Yannick Santiago MD completed Complex e/m visit ad d on Yannick Santiago MD completed Complex e/m visit ad d on Yannick Santiago MD completed Complex e/m visit ad d on Yannick Santiago MD completed EKG Yannick Santiago MD completed EKG Yannick Santiago MD completed EKG Yannick Santiago MD completed ICM Interrogation, Remote (Prof) Yannick Santiago MD INTERROGATION EVAL REMOTE </30 D CV MNTR SYS completed ICM Interrogation, Remote (Tech) Yannick Santiago MD INTERROGATION EVAL REMOTE </30 D TECH REVIEW completed ICM Interrogation, Remote (Prof) Yannick Santiago MD INTERROGATION EVAL REMOTE </30 D CV MNTR SYS completed ICM Interrogation, Remote (Tech) Yannick Santiago MD INTERROGATION EVAL REMOTE </30 D TECH REVIEW completed ICM Interrogation, Remote (Prof) Yannick Santiago MD INTERROGATION EVAL REMOTE </30 D CV MNTR SYS completed Pacemaker Interrogation, Remote (Tech) Yannick Santiago MD INTERROGATION REMOTE </90 D STRAIGHT EDGER REVIEW completed Pacemaker Interrogation, Remote (Prof) Yannick Santiago MD INTERROGATION EVAL REMOTE </90 D 1/2/RECREATION THERAPY TEACHER LEAD P completed ICM Interrogation, Remote (Prof) Yannick Santiago MD INTERROGATION EVAL REMOTE </30 D CV MNTR SYS completed ICM Interrogation, Remote (Tech) Yannick Santiago MD INTERROGATION EVAL REMOTE </30 D TECH REVIEW completed ICM Interrogation, Remote (Prof) Yannick Santiago MD INTERROGATION EVAL REMOTE </30 D CV MNTR SYS completed ICM Interrogation, Remote (Tech) Yannick Santiago MD INTERROGATION EVAL REMOTE </30 D TECH REVIEW completed ICM Interrogation, Remote (Prof) Yannick Santiago MD INTERROGATION EVAL REMOTE </30 D CV MNTR SYS completed Pacemaker Interrogation, Remote (Tech) Yannick Santiago MD INTERROGATION REMOTE </90 D STRAIGHT EDGER REVIEW completed Pacemaker Interrogation, Remote (Prof) Yannick Santiago MD INTERROGATION EVAL REMOTE </90 D 1/2/RECREATION THERAPY TEACHER LEAD P completed ICM Interrogation, Remote (Prof) Yannick Santiago MD INTERROGATION EVAL REMOTE </30 D CV MNTR SYS completed ICM Interrogation, Remote (Tech) Yannick Santiago MD INTERROGATION EVAL REMOTE </30 D TECH REVIEW completed ICM Interrogation, Remote (Prof) Yannick Santiago MD INTERROGATION EVAL REMOTE </30 D CV MNTR SYS completed ICM Interrogation, Remote (Tech) Yannick Santiago MD INTERROGATION EVAL REMOTE </30 D TECH REVIEW completed ICM Interrogation, Remote (Prof) Yannick Santiago MD INTERROGATION EVAL REMOTE </30 D CV MNTR SYS completed Pacemaker Interrogation, Remote (Tech) Yannick Santiago MD INTERROGATION REMOTE </90 D STRAIGHT EDGER REVIEW completed Pacemaker Interrogation, Remote (Prof) Yannick Santiago MD INTERROGATION EVAL REMOTE </90 D 1/2/RECREATION THERAPY TEACHER LEAD P completed ICM Interrogation, Remote (Prof) Yannick Santiago MD INTERROGATION EVAL REMOTE </30 D CV MNTR SYS completed ICM Interrogation, Remote (Tech) Yannick Santiago MD INTERROGATION EVAL REMOTE </30 D TECH REVIEW completed ICM Interrogation, Remote (Prof) Yannick Santiago MD INTERROGATION EVAL REMOTE </30 D CV MNTR SYS completed ICM Interrogation, Remote (Tech) Yannick Santiago MD INTERROGATION EVAL REMOTE </30 D TECH REVIEW completed ICM Interrogation, Remote (Prof) Yannick Santiago MD INTERROGATION EVAL REMOTE </30 D CV MNTR SYS completed Pacemaker Interrogation, Remote (Tech) Yannick Santiago MD INTERROGATION REMOTE </90 D STRAIGHT EDGER REVIEW completed Pacemaker Interrogation, Remote (Prof) Yannick Santiago MD INTERROGATION EVAL REMOTE </90 D 1/2/RECREATION THERAPY TEACHER LEAD P completed ICM Interrogation, Remote (Prof) Yannick Santiago MD INTERROGATION EVAL REMOTE </30 D CV MNTR SYS completed ICM Interrogation, Remote (Tech) Yannick Santiago MD INTERROGATION EVAL REMOTE </30 D TECH REVIEW completed ICM Interrogation, Remote (Prof) Yannick Santiago MD INTERROGATION EVAL REMOTE </30 D CV MNTR SYS completed ICM Interrogation, Remote (Tech) Yannick Santiago MD INTERROGATION EVAL REMOTE </30 D TECH REVIEW completed EKG Yannick Santiago MD completed ICM Interrogation, Remote (Prof) Yannick Santiago MD INTERROGATION EVAL REMOTE </30 D CV MNTR SYS completed Pacemaker Interrogation, Remote (Tech) Yannick Santiago MD INTERROGATION REMOTE </90 D STRAIGHT EDGER REVIEW completed Pacemaker Interrogation, Remote (Prof) Yannick Santiago MD INTERROGATION EVAL REMOTE </90 D 1/2/RECREATION THERAPY TEACHER LEAD P completed ICM Interrogation, Remote (Prof) Yannick Santiago MD INTERROGATION EVAL REMOTE </30 D CV MNTR SYS completed ICM Interrogation, Remote (Tech) Yannick Santiago MD INTERROGATION EVAL REMOTE </30 D TECH REVIEW completed ICM Interrogation, Remote (Prof) Yannick Santiago MD INTERROGATION EVAL REMOTE </30 D CV MNTR SYS completed ICM Interrogation, Remote (Tech) Yannick Santiago MD INTERROGATION EVAL REMOTE </30 D TECH REVIEW completed ICM Interrogation, Remote (Prof) Yannick Santiago MD INTERROGATION EVAL REMOTE </30 D CV MNTR SYS completed Pacemaker Interrogation, Remote (Tech) Yannick Santiago MD INTERROGATION REMOTE </90 D STRAIGHT EDGER REVIEW completed Pacemaker Interrogation, Remote (Prof) Yannick Santiago MD INTERROGATION EVAL REMOTE </90 D 1/2/RECREATION THERAPY TEACHER LEAD P completed ICM Interrogation, Remote (Prof) Yannick Santiago MD INTERROGATION EVAL REMOTE </30 D CV MNTR SYS completed ICM Interrogation, Remote (Tech) Yannick Santiago MD INTERROGATION EVAL REMOTE </30 D TECH REVIEW completed ICM Interrogation, Remote (Prof) Yannick Santiago MD INTERROGATION EVAL REMOTE </30 D CV MNTR SYS completed ICM Interrogation, Remote (Tech) Yannick Santiago MD INTERROGATION EVAL REMOTE </30 D TECH REVIEW completed Pacemaker Interrogation, Remote (Tech) Yannick Santiago MD INTERROGATION REMOTE </90 D STRAIGHT EDGER REVIEW completed Pacemaker Interrogation, Remote (Prof) Yannick Santiago MD INTERROGATION EVAL REMOTE </90 D 1/2/RECREATION THERAPY TEACHER LEAD P completed ICM Interrogation, Remote (Prof) Yannick Santiago MD INTERROGATION EVAL REMOTE </30 D CV MNTR SYS completed ICM Interrogation, Remote (Tech) Yannick Santiago MD INTERROGATION EVAL REMOTE </30 D TECH REVIEW completed ICM Interrogation, Remote (Prof) Yannick Santiago MD INTERROGATION EVAL REMOTE </30 D CV MNTR SYS completed ICM Interrogation, Remote (Tech) Yannick Santiago MD INTERROGATION EVAL REMOTE </30 D TECH REVIEW completed SNOMED-CT: [id number] Current Medications Documented Yannick Santiago MD completed ICM Interrogation, Remote (Prof) Yannick Santiago MD INTERROGATION EVAL REMOTE </30 D CV MNTR SYS completed Pacemaker Interrogation, Remote (Tech) Yannick Santiago MD INTERROGATION REMOTE </90 D STRAIGHT EDGER REVIEW completed Pacemaker Interrogation, Remote (Prof) Yannick Santiago MD INTERROGATION EVAL REMOTE </90 D 1/2/RECREATION THERAPY TEACHER LEAD P completed ICM Interrogation, Remote (Prof) Yannick Santiago MD INTERROGATION EVAL REMOTE </30 D CV MNTR SYS completed ICM Interrogation, Remote (Tech) Yannick Santiago MD INTERROGATION EVAL REMOTE </30 D TECH REVIEW completed EKG Yannick Santiago MD completed SNOMED-CT: [id number] Current Medications Documented Yannick Santiago MD completed ICM Interrogation, Remote (Prof) Yannick Santiago MD INTERROGATION EVAL REMOTE </30 D CV MNTR SYS completed ICM Interrogation, Remote (Tech) Yannick Santiago MD INTERROGATION EVAL REMOTE </30 D TECH REVIEW completed Stress EKG Dedrick Lorenzo MD complete d Regadenoson, 4 units Yannick Santiago MD completed Cardiolite, 2 units Yannick Santiago MD c ompleted SPECT Images Indra Alba MD complet ed ICM Interrogation, Remote (Prof) Yannick Santiago MD INTERROGATION EVAL REMOTE </30 D CV MNTR SYS completed Pacemaker Interrogation, Remote (Tech) Yannick Santiago MD INTERROGATION REMOTE </90 D STRAIGHT EDGER REVIEW completed Pacemaker Interrogation, Remote (Prof) Yannick Santiago MD INTERROGATION EVAL REMOTE </90 D 1/2/RECREATION THERAPY TEACHER LEAD P completed ICM Interrogation, Remote (Prof) Yannick Santiago MD INTERROGATION EVAL REMOTE </30 D CV MNTR SYS completed ICM Interrogation, Remote (Tech) Yannick Santiago MD INTERROGATION EVAL REMOTE </30 D TECH REVIEW completed SNOMED-CT: [id number] Current Medications Documented Yannick Santiago MD completed ICM Interrogation, Remote (Prof) Yannick Santiago MD INTERROGATION EVAL REMOTE </30 D CV MNTR SYS completed ICM Interrogation, Remote (Tech) Yannick Santiago MD INTERROGATION EVAL REMOTE </30 D TECH REVIEW completed ICM Interrogation, Remote (Prof) Yannick Santiago MD INTERROGATION EVAL REMOTE </30 D CV MNTR SYS completed ICM Interrogation, Remote (Tech) Yannick Santiago MD INTERROGATION EVAL REMOTE </30 D TECH REVIEW completed ICM Interrogation, Remote (Prof) Yannick Santiago MD INTERROGATION EVAL REMOTE </30 D CV MNTR SYS completed Pacemaker Interrogation, Remote (Tech) Yannick Santiago MD INTERROGATION REMOTE </90 D STRAIGHT EDGER REVIEW completed Pacemaker Interrogation, Remote (Prof) Yannick Santiago MD INTERROGATION EVAL REMOTE </90 D 1/2/RECREATION THERAPY TEACHER LEAD P completed ICM Interrogation, Remote (Prof) Yannick Santiago MD INTERROGATION EVAL REMOTE </30 D CV MNTR SYS completed ICM Interrogation, Remote (Tech) Yannick Santiago MD INTERROGATION EVAL REMOTE </30 D TECH REVIEW completed ICM Interrogation, Remote (Prof) Yannick Santiago MD INTERROGATION EVAL REMOTE </30 D CV MNTR SYS completed ICM Interrogation, Remote (Tech) Yannick Santiago MD INTERROGATION EVAL REMOTE </30 D TECH REVIEW completed SNOMED-CT: [id number] Smoking Cessation Counseling Yannick Santiago MD completed SNOMED-CT: [id number] Current Medications Documented Yannick Santiago MD completed EKG Yannick Santiago MD completed TRANSTELEPHONIC RHYT HM STRIP PACEMAKER KAMILAH Santiago MD completed TRANSTELEPHONIC RHYT HM STRIP PACEMAKER KAMILAH Santiago MD completed TRANSTELEPHONIC RHYT HM STRIP PACEMAKER KAMILAH Santiago MD completed EKG Yannick Santiago MD completed Pacemaker Programmin g (Dual Lead) Yannick Santiago MD PROGRAM EVAL IMPLANTABLE IN PERSN DUAL LD PACER completed EKG Yannick Santiago MD completed EKG Indra Alba MD completed EKG Yannick Santiago MD completed
--- OUTSIDE RECORDS SUMMARY | 2025-03-23 14:41 | XMS_ITS | Data Portability ---
Author Organization [place] - [facility] [employer], Main Office Address [address] [place] [address] Care Team Providers Care Supervisor [employer] Name Role Phone LESTER ESPINOSA Primary Care Provider [phone] LESTER ESPINOSA Referring Provider Assessment Encounter Date Assessment Date Assessment LastModified by Organization Details LastModified Time 10/20/2024 10/20/2024 Time spent with patient included: preparing to see patient by reviewing tests, obtaining and reviewing history, medical examination and evaluation, counseling and educating the patient, ordering medications and tests, documenting clinical information in EHR, independently interpreting results and communicating results to the patient for a total of 40 minutes. Not available 10/20/2024 13:22:11 01/18/2025 01/18/2025 Time spent with patient included: preparing to see patient by reviewing tests, obtaining and reviewing history, medical examination and evaluation, counseling and educating the patient, ordering medications and tests, documenting clinical information in EHR, independently interpreting results and communicating results to the patient for a total of 48 minutes. Not available 01/19/2025 10:01:41 Plan of Treatment Reminders Order Date Submit Date Provider Last Modified By Organization Details Last Modified Time Details Appointments Any 30 2024 03:00P M Ilsa Lincoln NP Not available Not available Not available Any 15 2024 10:45A M Lester Espinosa MD Not available Not available Not available Lab CMP, serum or plasma 2024 025 [email or web address] [facility] (Lab), [address] [place], [address], 03/22/2025 09:51:11 Referral pulmona ry rehab referra l - Please call patient to melinda franklinNote from provide r: current ly on O2 2023 024 [email or web address] [facility], [address] [place], [address], 03/23/2025 08:59:36 Procedures None recorde d. Surgeries None recorde d. Imaging US, elastog kevin 2024 025 [email or web address] [facility], [address] [place], [address], 02/23/2025 15:12:18 Medication Orders azathio santos 50 mg tablet 2024 025 [facility], [facility] [place], [address], 03/02/2025 16:03:43 Trelegy Ellipta 100 mcg-62. 5 mcg-25 mcg powder for inhalat ion 2024 025 [email or web address] [facility] [id number] In [facility], [address] [place] [address], [address], 03/15/2025 11:03:45 pantopr azole 40 mg tablet, delayed release 2024 025 EL[facility] [address], [address], 12/10/2024 14:26:46 Symbico rt 160 mcg-4.5 mcg/act uation HFA aerosol inhaler 2023 024 [email or web address] [facility] [address], [address], 03/15/2025 11:02:59 Patient TargetsNo targets recorded. Patient Instructions Encounter Date Encounter Id Patient Instructions Last Modified By Organization Details Last Modified Time 01/18/2025 [id number] capnography with overnight oximetry* [employer] Not available 01/27/2025 09:55:20 02/23/2025 [id number] PT WITH AIH / LO W PLTS. CHECK FIBROSURE TEST. R/O CIRRHOSIS. CONT AZA 50 MG , 2 TABS DAILY . F/U IN 3 MTHS . [email or web address] Not available 02/23/2025 15:11:20 Reason for Referral Pulmonary Rehab Referral for Moderate chronic obstructive pulmonary disease Please call patient to schedule.Note from provider: currently on O2 Referring Physician: Ilsa Lincoln, Pulmonary Disease, Encounter Date: 10/20/2024 Results Created Date Observation Date Name Description Value Unit Range Abnormal Flag Note LastModifiedBy Organization Detail LastModifiedTime 10/22/20 24 10/20/2024 compl ete PFT w/ post [facility] hodil ator alex metry * No observ ation record ed. BARCODE [facility] ([facility]) [address] [place], [address], 10/22/2024 10:29:08 03/02/20 25 02/28/2025 clini mason photo * No observ ation record ed. [email or web address] Not Available 03/02 09:47:12 03/09/20 25 03/09/2025 imagi ng/di agnos tic resul t No observ ation record ed. [email or web address] Yannick Vilchis MD [address] [place], [address], 03/10/2025 14:15:23 03/16/20 25 02/18/2025 oxime try monit oring overn ight No observ ation record ed. BARCODE Not Available 2024 15:59:35 Result Notes None recorded. Problems Name Problem SNOMED Code Status Onset Date Resolution Date Notes Provider Name and Address Organization Details Recorded Time Blood glucose outside referenc e range 988560035 Completed Not Available [facility] 3 01:14:39 Autoimmu ne liver disease 375208312 Active Not Available [employer] 4 08:31:31 Skyler hayden 474418375 Active 2016 Not Available [facility] 4 08:31:31 Chest pain 03624913 Completed Not Available [facility] 3 01:14:40 Thromboc ytopenic disorder 384543903 Active Not Available [facility] 4 08:31:31 Hypertri glycerid emia 075489271 Active Not Available [facility] 4 08:31:31 Vaginiti s 00279882 Completed Not Available [facility] 3 01:14:40 Type 2 diabetes mellitus without complica tion 402491275 Active 2021 Not Available [facility] 4 08:31:31 Malignan t neoplasm of lung 577694902 Active s/p surgery x 2,in 1999, 2008 s/p chemo, RT Not Available [facility] 4 08:31:31 Hyperten sive disorder 91955440 Active 2019 Not Available [facility] 4 08:31:31 Macrocyt osis 157856705 Active Not Available [facility] 4 08:31:31 Vertigo 888921404 Completed Not Available [facility] 3 01:14:41 Autoimmu ne hepatiti s 495310691 Active dr Ornelas Not Available [facility] 4 08:31:31 Hypothyr oidism 66685440 Active Not Available [facility] 4 08:31:31 Obesity 349069626 Active Not Available [facility] 4 08:31:31 Anxiety 86745100 Active Not Available [facility] 4 08:31:31 Pain of hip region 37776273 Completed Not Available [facility] 3 01:14:42 Coronary arterios clerosis 85190249 Active 2008 s/p CABGDR Vilchis Not Available [facility] 4 08:31:31 Essentia l hyperten libertad 97445530 Active Not Available [facility] 4 08:31:31 Carotid artery stenosis 99706004 Active s/p endartre ctomy Not Available [facility] 4 08:31:32 Diabetes mellitus 25647831 Active Not Available [facility] 4 08:31:32 Osteoart hritis 185500519 Active 2022 Not Available [facility] 4 08:31:31 Hearing loss 21283415 Active 2022 Not Available [facility] 4 08:31:31 Arthriti s 3431171 Active 2022 Not Available [facility] 4 08:31:31 Multiple benign melanocy tic nevi 877670841 Active 2022 Not Available [facility] 4 08:31:31 Abdomina l aortic aneurysm 246889006 Active 2022 Not Available [facility] 4 08:31:31 Allergic rhinitis 74963970 Active 2022 Not Available [facility] 4 08:31:31 Gastroes ophageal reflux disease 451865589 Active 2022 Not Available [facility] 4 08:31:31 Peripher al vascular disease 446854911 Active 2023 Lester Espinosa MD [address], [address], [place], [address] , [employer] [facility] [employer] [facility] 4 12:16:09 Renal artery stenosis 728584770 Active 2023 Lester Espinosa MD [address], [address], [place], [address] , [employer] [facility] [employer] [facility] 4 12:16:28 Moderate chronic obstruct ryann pulmonar y disease 007397545 Active 2023 Ilsa Lincoln NP [address], [address], [place], [address] , [employer] [facility] [employer] [facility] 4 13:03:17 Impacted cerumen of bilatera l ears 44836209710 07527 Active 2024 Sally Ward NP [address], [address], [place], [address] , [employer] [facility] [employer] [facility] 5 14:29:34 Severe chronic obstruct ryann pulmonar y disease 696832069 Active 2024 Ilsa Lincoln NP [address] [facility], [address], [place], [address] , [employer] 5 16:10:55 Dyspnea on exertion 83500484 Active 2024 Ilsa Lincoln NP [address] [facility] [facility] [address], [place], [address] , [employer] 5 14:06:38 Hyperlip idemia 37389826 Active 2024 Maru Kaufman null, [employer] 5 10:57:29 Steatoti c liver disease 540152169 Active 2024 Lester Espinosa MD [address] [facility], [facility] [address], [place], [address] , [employer] 5 11:26:06 Problem Notes None recorded. Procedures Surgical History Date Name Laterality Status Provider Name and Address Organization Details Recorded Time 05/27/20 24 Medicare Wellness CPT Code, subsequent completed Iraida Omer RN [place] [employer] 05/27/2024 12:30:35 01/24/20 23 Medicare Wellness CPT Code, subsequent completed Sangita George RN [place] [employer] 01/23/2023 12:43:21 04/29/20 22 Date of Last Mammogram completed Sangita George RN [place] [employer] 01/23/2023 12:45:47 06/24/20 18 Most Recent Bone Density completed Not Available [facility] 01/15/2023 00:59:44 02/09/20 14 Date of Last Colonoscopy completed Not Available [facility] 01/15/2023 00:59:44 Cardiovascular Surgery completed Not Available [facility] 01/15/2023 00:59:49 Lung Surgery completed Not Available [facility] 01/15/2023 00:59:49 Cataract Surgery completed Not Available [facility] 01/15/2023 00:59:49 CARDIOLOGY CONSULTANT Surgery completed Not Available [facility] 01/15/2023 00:59:49 other completed Not Available [facility] 01/15/2023 00:59:49 Hysterectomy completed Carmen Escobedo MA [facility] 09/21/2024 16:17:27 Imaging Results Imaging Date Name Status LastModified by Organization Details LastModified Time 10/20/2024 complete PFT w/ post bronchodilator spirometry* completed [facility] ([facility]) [address] [place], [address], 10/22/2024 10:29:08 02/28/2025 clinical photo* completed Informat[employer] on not available 03/02/2025 09:47:12 03/09/2025 imaging/diagnostic result completed [email or web address] Yannick Vilchis MD [address] [place], [address], 03/10/2025 14:15:23 02/18/2025 oximetry monitoring overnight completed [facility] Information not available 03/16/2025 15:59:35 Procedure Notes None recorded. Medical Equipment None Reported. Allergies Allergen ID Allergen Name Allergen Category Reaction Reaction Severity Criticality Documentation Date Start Date Code Code System Note Provider Name and Address Organization Details Recorded Time 2580 Tylenol-C odeine medicatio n hallucina tions Not available Not available 01/15/2023 25858 UNK Not Available [facility] 3 01:31:03 2582 codeine medicatio n hallucina tions Not available Not available 01/15/2023 2670 RxNorm Not Available [facility] 3 01:31:03 Medications Name Sig Start Date Stop Date Status Note LastModified by Organization Details LastModified Time amoxicillin 500 mg capsule TAKE 1 CAPSULE BY MOUTH THREE TIMES A DAY FOR 7 DAYS 08/19 completed Not Available Not Available Not Available prednisone 10 mg tablet TAKE 1 TAB BY MOUTH 3 TIMES A DAY X3 DAYS, 1 TAB 2 TIMES A DAY X2 DAYS, 1 TAB ONCE A DAY FOR 1 DAY 09/21 completed Not Available Not Available Not Available doxycycline hyclate 100 mg capsule Take 1 capsule twice a day by oral route for 7 days. active Not Available Not Available No t Available atorvastati n 10 mg tablet active Not Available Not Available Not Available azithromyci n 250 mg tablet TAKE 2 TABLETS (500 MG) BY ORAL ROUTE ONCE DAILY FOR 1 DAY THEN 1 TABLET (250 MG) BY ORAL ROUTE ONCE DAILY FOR 4 DAYS 09/21 completed Not Available Not Available Not Available fluconazole 150 mg tablet TAKE 1 TABLET A SINGLE DOSE 09/21 completed Not Available Not Available Not Available metronidazo le 0.75 % (37.5 mg/5 gram) vaginal gel INSERT 1 APPLICATO RFUL VAGINALLY ONCE DAILY FOR 5 DAYS 09/21 completed Not Available Not Available Not Available prednisone 20 mg tablet 09/21 completed Not Available Not Available Not Available metronidazo le 500 mg tablet TAKE 1 TABLET BY MOUTH EVERY 12 HOURS 09/21 completed Not Available Not Available Not Available azathioprin e 50 mg tablet Take 2 tablets a day by oral route as directed 2024 active Not Available Not Available Not Avai lable clopidogrel 75 mg tablet Take 1 tablet every day by oral route for 90 days. active Not Available Not Available No t Available ciprofloxac in 500 mg tablet active Not Available Not Available Not Available aspirin 81 mg tablet,marily yed release TAKE 1 TABLET BY MOUTH DAILY active Not Available Not Available No t Available tramadol 50 mg tablet Take 1 TABLET TID by oral route prn active Not Available Not Available No t Available amoxicillin 500 mg tablet Take 1 tablet 3 times a day by oral route for 7 days. 05/10 completed Not Available Not Available Not Available prednisone 10 mg tablets in a dose pack Take 1 tab by mouth, 3 times a day for 3 daysTake 1 tab by mouth 2 times a day for 2 daysTake 1 tab by mouth once a day for 1 day 09/21 completed Not Available Not Available Not Available Macrobid 100 mg capsule Take 1 capsule every 12 hours by oral route. 05/29 completed Not Available Not Available Not Available alprazolam 0.5 mg tablet Take 1 tablet every day by oral route as needed for 30 days. active Not Available Not Available No t Available Kenalog 10 mg/mL suspension for injection Take 20 mg by injection route. 05/27 completed [facility]: [phone] Not Available Not Available Not Available meclizine 25 mg tablet Take 1 tablet every day by oral route. 03/15 completed Not Available Not Available Not Available benzonatate 100 mg capsule Take 1 capsule 3 times a day by oral route. 03/11 completed Not Available Not Available Not Available cephalexin 500 mg capsule 09/23 completed Not Available Not Available Not Available pantoprazol e 40 mg tablet,marily yed release TAKE 1 TABLET BY MOUTH EVERY DAY NEEDED FOR 90 DAYS active Not Available Not Available No t Available nitroglycer in 0.4 mg sublingual tablet active Not Available Not Available Not Available diclofenac sodium 75 mg tablet,marily yed release TAKE 1 TABLET BY MOUTH TWICE A DAY NEEDED 05/25 completed Not Available Not Available Not Available montelukast 10 mg tablet Take 1 tablet every day by oral route. 05/25 completed Not Available Not Available Not Available mupirocin 2 % topical ointment 09/23 completed Not Available Not Available Not Available furosemide 20 mg tablet active Not Available Not Available Not Available levofloxaci n 500 mg tablet 03/11 completed Not Available Not Available Not Available methylpredn isolone 4 mg tablets in a dose pack Take 1 dose pk by oral route as directed. 03/06 completed Not Available Not Available Not Available albuterol sulfate HFA 90 mcg/actuati on aerosol inhaler INHALE 2 PUFFS 4 TIMES A DAY BY INHALATIO N ROUTE FOR 7 DAYS. 2023 active Not Available Not Available Not Avai lable Cipro 250 mg tablet Take 1 tablet twice a day by oral route for 5 days. 10/13 completed Not Available Not Available Not Available fluticasone propionate 50 mcg/actuati on nasal spray,suspe nsion INSTILL 2 SPRAYS INTO EACH NOSTRIL ROUTE EVERY DAY 10/20 completed Not Available Not Available Not Available Premarin 0.625 mg/gram vaginal cream Insert 0.625 g twice a week by vaginal route. active Not Available Not Available No t Available Klor-Con M10 mEq tablet,exte nded release active Not Available Not Available Not Available Marcaine (PF) 0.5 % (5 mg/mL) injection solution Take 20 mg by injection route. 05/27 completed Not Available Not Available Not Available metoprolol tartrate 25 mg tablet active Not Available Not Available No t Available TriLyte With Flavor Packets 420 gram oral solution active Not Available Not Available Not Available Vitamin D active Not Available Not Aretha ilable Not Available multivitami n active Not Available Not Available Not Available budesonide- formoterol HFA 160 mcg-4.5 mcg/actuati on aerosol inhaler INHALE 2 PUFFS BY MOUTH TWICE A DAY 03/15 completed Not Available Not Available Not Available Vitamin B12 2020 active Not Available Not Available Not Avai lable Trelegy Ellipta 100 mcg-62.5 mcg-25 mcg powder for inhalation Inhale 1 puff every day by inhalatio n route. active Not Available Not Available No t Available Flucelvax Quad (PF) 60 mcg (15 mcg x 4)/0.5 mL IM syringe ADM 0.5ML IM UTD 10/18 completed Not Available Not Available Not Available Fluad Quad (6 5yr up)(PF) 60 mcg (15 mcg x 4)/0.5mL IM syringe ADM 0.5ML IM UTD 09/06 completed Not Available Not Available Not Available Vitals Date Recorded Body height Body mass index (BMI) Body weight Body temperature Heart rate Oxygen saturation Oxygen saturation in Arterial blood by Pulse oximetry Inhaled oxygen flow rate Systolic blood pressure Diastolic blood pressure Provider Name and Address Organization Details Last Updated DateTime 4 175.26 cm 30.1 kg/m2 24254.8 4 g 98.7 [degF] 77 /min 91 % 91 % 2 L/min 112 mm[Hg] 68 mm[Hg] Carmen Escobedo MA [employer] 4 12:43:10 Date Recorded Body height Body mass index (BMI) Body weight Body temperature Oxygen saturation Oxygen saturation in Arterial blood by Pulse oximetry Inhaled oxygen flow rate Systolic blood pressure Diastolic blood pressure Provider Name and Address Organization Details Last Updated DateTime 5 175.26 cm 29.7 kg/m2 71073.0 7 g 97.1 [degF] 95 % 95 % 2 L/min 138 mm[Hg] 76 mm[Hg] Maru auguste [employer] 5 14:01:46 Date Recorded Body height Body mass index (BMI) Body weight Heart rate Oxygen saturation Oxygen saturation in Arterial blood by Pulse oximetry Body temperature Oxygen saturation Oxygen saturation in Arterial blood by Pulse oximetry Inhaled oxygen flow rate Systolic blood pressure Diastolic blood pressure Provider Name and Address Organization Details Last Updated DateTime 5 175.26 cm 30.1 kg/m2 54471.8 4 g 70 /min 84 % 84 % 97.5 [degF] 97 % 97 % 3 L/min 126 mm[Hg] 82 mm[Hg] Crystal Katz MA [facility] [employer] [facility] 5 16:04:26 Date Recorded Body height Body mass index (BMI) Body weight Heart rate Oxygen saturation Oxygen saturation in Arterial blood by Pulse oximetry Systolic blood pressure Diastolic blood pressure Provider Name and Address Organization Details Last Updated DateTime 5 175.26 cm 30.9 kg/m2 06605.8 1 g 72 /min 97 % 97 % 124 mm[Hg] 80 mm[Hg] MARYLU Velasquez [facility] [employer] [facility] 5 14:38:34 Date Recorded Body height Body mass index (BMI) Body weight Body temperature Heart rate Oxygen saturation Oxygen saturation in Arterial blood by Pulse oximetry Inhaled oxygen flow rate Systolic blood pressure Diastolic blood pressure Provider Name and Address Organization Details Last Updated DateTime 5 175.26 cm 30.4 kg/m2 87331.0 3 g 97.8 [degF] 89 /min 95 % 95 % 2 L/min 108 mm[Hg] 78 mm[Hg] Maru auguste [facility] [employer] [facility] 5 11:00:47 Social History Question Answer Notes LastModified by Organization Details LastModified Time Tobacco Smoking Status Former Smoker Not Available [facility] 01/15/2023 00:57:50 Do You Have An Advance Directive? Yes [id number] Information not available 01/15/2023 What Is Your Level Of Alcohol Consumption? None [email or web address] Information not available 01/15/2023 Are You Blind Or Do You Have Difficulty Seeing? No [email or web address] Information not available 01/15/2023 Is Blood Transfusion Acceptable In An Emergency? Yes [email or web address] Information not available 05/27/2024 What Is Your Level Of Caffeine Consumption? Occasional [email or web address].[id number] [id number] Information not available 01/15/2023 How Much Tobacco Do You Chew? None [email or web address].0301 [id number] Information not available 01/15/2023 What Is Your Code Status? Other Leaves Decision To Family [email or web address] Information not available 05/27/2024 In The 14 Days Before Symptom Onset, Have You Had Close Contact With A Laboratory-conf irmed COVID-19 While That Case Was Ill? No Not Applicable [email or web address] Information not available 05/27/2024 In The 14 Days Before Symptom Onset, Have You Had Close Contact With A Person Who Is Under Investigation For COVID-19 While That Person Was Ill? No Not Applicable [email or web address] Information not available 05/27/2024 Are You Currently Employed? No [email or web address] Information not available 05/27/2024 Are You Deaf Or Do You Have Serious Difficulty Hearing? Yes Left Ear Occasional Issues [email or web address] Information not available 05/27/2024 What Type Of Diet Are You Following? REGULAR MIGRATION.0301 [id number] Information not available 01/15/2023 Which Illicit Or Recreational Drugs Have You Used? None [email or web address].0301 [id number] Information not available 01/15/2023 Do You Or Have You Ever Used E-cigarettes Or Vape? Never Used Electronic Cigarettes MIGRATION.0301 [id number] Information not available 01/15/2023 What Is The Highest Grade Or Level Of School You Have Completed Or The Highest Degree You Have Received? [id number] [email or web address] Information not available 05/27/2024 Do You Have An Electrostatic Air Filter? No Information not available 09/21/2024 What Is Your Occupation? Retired MIGRATION.0301 [id number] Information not available 01/15/2023 How Many Days Of Moderate To Strenuous Exercise, Like A Brisk Walk, Did You Do In The Last 7 Days? 0 [email or web address] Information not available 05/27/2024 Have You Been Exposed To Chemicals Or Toxins? No Not That Aware Of Information not available 09/21/2024 Have There Been Any Changes To Your Family Or Social Situation? No [email or web address] Information not available 01/23/2023 What Is The Fluoride Status Of Your Home? Fluoridated MIGRATION.0301 [id number] Information not available 01/15/2023 When Did You Quit Smoking? 16+yearssincelastc igarette MIGRATION.0301 [id number] Information not available 01/15/2023 Are There Any Guns Present In Your Home? Yes [email or web address] Information not available 05/27/2024 Do You Have A Humidifier? No Information not available 09/21/2024 Do You Use Insect Repellent Routinely? No [email or web address] Information not available 05/27/2024 Where Do You Live? SingleLevelHouse [email or web address] Information not available 05/27/2024 Presence Of Domestic Violence No [email or web address] Information not available 05/27/2024 Guns Present In The Home? Yes [email or web address] Information not available 05/27/2024 Are You Able To Care For Yourself? Yes [email or web address] Information not available 01/23/2023 Are You Blind Or Do Yo Have Difficulty Seeing? No [email or web address] Information not available 01/23/2023 Are You Deaf Or Do You Have Serious Difficulty Hearing? No [email or web address] Information not available 01/23/2023 General Stress Level? Moderate [email or web address] Information not available 05/27/2024 Live Alone Of With Others? Alone [email or web address] Information not available 05/27/2024 Are You Following A Low Salt Diet? No [email or web address] Information not available 05/27/2024 Do You Have A Medical Power Of Attendant Sales? Yes Daughter Yazmin- [phone] [email or web address].0301 [id number] Information not available 01/15/2023 Do You Have Moisture Problems In Your Home? No Information not available 10/20/2024 What Was The Date Of Your Most Recent Tobacco Screening? 01/18/2025 [email or web address] Information not available 01/18/2025 How Many Children Do You Have? 2 [email or web address] Information not available 05/27/2024 What Is Your Current Pack Years? 30ormorepackyears [email or web address] Information not available 05/27/2024 Do You Have Any Pets? No [email or web address] Information not available 05/27/2024 What Is Your Relationship Status? MIGRATION.0301 [id number] Information not available 01/15/2023 Do You Use Your Seat Belt Or Car Seat Routinely? Yes MIGRATION.0301 [id number] Information not available 01/15/2023 Are You Sexually Active? No [email or web address] Information not available 05/27/2024 Do You Have Smoke And Carbon Monoxide Detectors In Your Home? Yes MIGRATION.0301 [id number] Information not available 01/15/2023 At What Age Did You Start Smoking Tobacco? 12 [email or web address] Information not available 05/27/2024 Are You Passively Exposed To Smoke? No [email or web address] Information not available 05/27/2024 Do You Or Have You Ever Used Smokeless Tobacco? Never Used Smokeless Tobacco [id number] Information not available 01/15/2023 Are There Any Smokers In Your House? No [email or web address] Information not available 05/27/2024 How Much Tobacco Do You Smoke? 1 PPD [email or web address] Information not available 05/27/2024 What Types Of Sporting Activities Do You Participate In? None [email or web address] Information not available 05/27/2024 Do You Feel Stressed (tense, Restless, Nervous, Or Anxious, Or Unable To Sleep At Night)? [id number] [email or web address] Information not available 05/27/2024 Do You Use Any Illicit Or Recreational Drugs? No [email or web address] Information not available 05/27/2024 Do You Use Sunscreen Routinely? No [email or web address] Information not available 05/27/2024 Has Tobacco Cessation Counseling Been Provided? No [email or web address] Information not available 05/27/2024 How Many Years Have You Smoked Tobacco? 37 [email or web address] Information not available 05/27/2024 Have You Recently Traveled Abroad? No MIGRATION.0301 [id number] Information not available 01/15/2023 Do You Have Any Dietary Restrictions? Yes Watches Sugar Intake [email or web address] Information not available 05/27/2024 Do You Or Have You Ever Used Any Other Forms Of Tobacco Or Nicotine? No [email or web address] Information not available 05/27/2024 Sex: Unknown Functional Status Question Answer Note LastModified by Organizat ion Details LastModified Time Do you have difficulty walking or climbing stairs? Yes relates to hip and back pain [email or web address] Information not available 05/27/2024 Do you have transportation difficulties? No MIGRATION.[id number] Information not available 01/15/2023 Are you able to walk? YESWOREST MIGRATION.[id number] 2443 Information not available 01/15/2023 Do you have difficulty doing errands alone? No MIGRATION.466387 0839 Information not available 01/15/2023 Are you able to care for yourself? Yes MIGRATION.[id number] Information not available 01/15/2023 Do you have difficulty dressing or bathing? No MIGRATION.399553 2572 Information not available 01/15/2023 What is your exercise level? None [email or web address] Information not available 05/27/2024 Mental Status Question Answer Note LastModified by Organizat ion Details LastModified Time Do you have difficulty concentrating, remembering or making decisions? No MIGRATION.[id number] 6 Information not available 01/15/2023 Family History Relationship Description Onset Age of this Age Resolved Age Notes LastModified by Organization Details LastModified Time Father Heart disease [id number].075 [id number] Not available 01/15/2023 00:59:59 Mother Essential hypertension MIGRATION.906 [id number] Not available 01/15/2023 00:59:59 Mother Malignant neoplastic disease MIGRATION.065 [id number] Not available 01/15/2023 00:59:59 Brother Malignant neoplastic disease MIGRATION.692 [id number] Not available 01/15/2023 00:59:59 Medical History Condition Response HEART DISEASE/HEART PROBLEMS Y CANCER: SPECIFY Y ARTHRITIS Y USE OF BLOOD THINNERS Y BLOOD DISEASES Y LUNG DISEASE/DISORDER Y Gynecological History Statement/Question Response Date of Last Mammogram 04/29/2022 Date of Last Colonoscopy 02/08/2014 Date of Last Mammogram 04/29/2022 Most Recent Bone Density 06/24/2018 Obstetrics History GPAL:G 0 P 0 0 0 0 Immunizations Vaccine Type Date Status Note Provider Nam e and Address Organization Details Recorded Time SARS-COV-2 (COVID-19) vaccine, UNSPECIFIED 1 completed Not Available [facility] 12/29/2023 08:31:32 Influenza, high-dose, quadrivalent, PF 0 completed Not Available [facility] 12/29/2023 08:31:32 SARS-COV-2 (COVID-19) vaccine, UNSPECIFIED 1 completed Not Available [facility] 12/29/2023 08:31:32 Influenza, split virus, quadrivalent, preservative 9 completed Not Available [facility] 12/29/2023 08:31:32 Influenza, high-dose, quadrivalent, PF 2 completed Not Available [facility] 12/29/2023 08:31:32 Influenza, high-dose, quadrivalent, PF 1 completed Not Available [facility] 12/29/2023 08:31:32 Influenza, high-dose, trivalent, PF 8 completed Not Available [facility] 12/29/2023 08:31:32 Influenza, high-dose, trivalent, PF 7 completed Not Available [facility] 12/29/2023 08:31:32 Pneumococcal conjugate PCV 13 6 completed Not Available [facility] 12/29/2023 08:31:32 Tdap 6 completed Not Available [facility] 12/29/2023 08:31:32 Influenza, high-dose, trivalent, PF 5 completed Not Available [facility] 12/29/2023 08:31:32 Influenza, split virus, quadrivalent, PF 6 completed Not Available [facility] 12/29/2023 08:31:32 pneumococcal polysaccharide PPV23 5 completed Not Available [facility] 12/29/2023 08:31:32 Influenza, split virus, trivalent, PF 4 completed Not Available [facility] 12/29/2023 08:31:32 Influenza, high-dose, trivalent, PF 4 completed MARYLU [place], [place] - [facility] [employer] [facility] 09/28/2024 13:28:15 Past Encounters Encounter ID Performer Location Encounter Start Date Encounter Closed Date Diagnosis/Indication Diagnosis SNOMED-CT Code Diagnosis ICD10 Code Diagnosis Note [id number] Lester Espinosa MD [facility] Internal [address] [address] 01/31/2021 00:00:00 01/31/2021 15:43:23 [id number] Lester Espinosa MD [place] Internal [address] [address] 06/05/2021 00:00:00 06/05/2021 12:16:23 [id number] _ATHN_MIGR ATION_1 _ATHENA_M IGRATION_ DEFAULT_1 _1 , 09/05/2021 00:00:00 09/05/2021 11:48:23 [id number] Lester Espinosa MD [facility] Internal Med [address] [address] 09/28/2021 00:00:00 09/28/2021 14:41:37 [id number] Lester Espinosa MD [facility] Internal Med [address] [address] 02/08/2022 00:00:00 02/08/2022 14:30:59 [id number] _ATHN_MIGR ATION_1 _ATHENA_M IGRATION_ DEFAULT_1 _1 , 03/06/2022 00:00:00 03/06/2022 12:41:13 [id number] Lester Espinosa MD [facility] Internal Med [address] [address] 06/10/2022 00:00:00 06/10/2022 11:57:36 [id number] Lester Espinosa MD [facility] Internal Med [address] [address] 09/25/2022 00:00:00 09/25/2022 11:50:02 [id number] _ATHN_MIGR ATION_1 _ATHENA_M IGRATION_ DEFAULT_1 _1 , 10/02/2022 00:00:00 10/02/2022 16:48:49 [id number] Lester Espinosa MD [facility] Internal Med [address] [address] 01/23/2023 11:48:09 01/23/2023 12:44:10 Type 2 diabetes mellitus without complication 190565177 E11.9 under control Essential hypertension 16316315 I10 under control Carotid ar shawna stenosis 73295250 I65.29 s/p CABG, Autoimmune hepatitis 408 731500 K75.4 seeing GI Hyperlipidemia 05394172 E78.5 stable Anxiety 66344079 F41.9 xanax prn Hypertriglyceridemia 302 206925 E78.1 diet/ weight loss discussed Malignant neoplasm of lung 202298705 C34.[address] chest at Dr. Valle Obesity 483738388 E66.9 advised to lose weight, and watch diet Thrombocyt openic disorder 203141305 D69.6 stable Adult heal th examination 807625789 Z00.00 colonoscop y- 01/28, next in 10 yrs, report in the hospital eumovax- 01/01prevn ar- 11/01mammo gram- 2dex a- 2018- orderedFLU - 09/25/22CO VID Vacc- 12/21/20 & 01/18/21 Hearing loss 86745928 H9 1.93 Osteoarthritis 687546008 M19.90 otc Impacted c erumen in right ear 8562013407 276564 H61.21 care discussed Screening for disorder 535231142 Z13.9 [id number] Lester Espinosa MD [facility] Internal Med [address] [facility] [place] [place] [address] 05/06/2023 11:20:41 05/06/2023 11:44:05 Urinary symptoms 402226264 R39.9 Low back pain 389585071 M54.50 Pain of ri ght hip joint 1615191110 75410 M25.551 [id number] Lester Espinosa MD [facility] Internal Med [address] [facility] [place] [address] 05/29/2023 09:19:32 05/29/2023 09:58:26 Type 2 diabetes mellitus without complication 589412412 E11.9 under control Essential hypertension 45512678 I10 under control Carotid ar shawna stenosis 08142207 I65.29 s/p CABG, Autoimmune hepatitis 408 235110 K75.4 seeing GI Hyperlipidemia 36901044 E78.5 stable Anxiety 36059196 F41.9 xanax prn Hypertriglyceridemia 302 384207 E78.1 diet/ weight loss discussed Malignant neoplasm of lung 387207291 C34.[address] chest at Dr. Valle Obesity 714519895 E66.9 advised to lose weight, and watch diet Thrombocyt openic disorder 505250610 D69.6 labs Adult heal th examination 869272546 Z00.00 colonoscop y- 01/28, next in 10 yrs, [facility] 01/[facility]prevn ar- 11/01mammo gram- 2dex a- 2017- orderedFLU - 09/25/22CO VID Vacc- 2/03/07 & 3 Hearing loss 33282269 H9 1.93 mild Osteoarthritis 367908153 M19.90 hip pain getting worse Multiple b enign melanocytic nevi 175378856 D22.9 seeing derm Abdominal aortic aneurysm 790892032 I71.40 small [id number] Lester Espinosa MD [facility] Internal Med [address] [place] [address] 09/29/2023 11:32:38 09/29/2023 12:17:47 Type 2 diabetes mellitus without complication 108705817 E11.9 under good control Essential hypertension 13811625 I10 under control Carotid ar shawna stenosis 12560282 I65.29 s/p CABG, Autoimmune hepatitis 408 474473 K75.4 seeing GI Hyperlipidemia 82247777 E78.5 stable Anxiety 44668554 F41.9 xanax prn Hypertriglyceridemia 302 228947 E78.1 low fat diet Malignant neoplasm of lung 066148408 C34.[address] chest at Dr. Valle Obesity 048767304 E66.9 advised to lose weight, and watch diet Thrombocyt openic disorder 527925090 D69.6 seen oncology Adult heal th examination 592578793 Z00.00 colonoscop y- 01/28, next in 10 yrs, report in the hospitalpn eumovax- 01/01prevn ar- 11/01mammo gram- 3dexa- 2018- was orderedFLU - 09/25/22CO VID Vacc- 2/03/07 & 3 Hearing loss 67314130 H9 1.93 mild Osteoarthritis 752679262 M19.90 otc Multiple b enign melanocytic nevi 858143594 D22.9 seeing derm Abdominal aortic aneurysm 614499915 I71.40 small, watch Allergic rhinitis 415489 04 J30.9 Gastroesop hageal reflux disease 597284945 K21.9 [id number] Marlee Rosario MD [facility] General Surgery [address] [place] [address] 10/08/2023 10:48:59 10/08/2023 11:19:42 Autoimmune hepatitis 216750350 K75.4 Thrombocyt openic disorder 438499659 D69.6 [id number] Marlee Rosario MD [facility] General Surgery [address] [place] [address] 01/14/2024 11:44:12 01/14/2024 12:11:51 Autoimmune hepatitis 058394046 K75.4 Thrombocyt openic disorder 250346949 D69.6 [id number] Lester Espinosa MD [facility] Internal Med [address] [place] [address] 01/26/2024 11:55:10 01/26/2024 12:50:59 Type 2 diabetes mellitus without complication 285240961 E11.9 under good control Essential hypertension 23201213 I10 under control Carotid ar shawna stenosis 78627480 I65.29 s/p CABG, Autoimmune hepatitis 408 076876 K75.4 seeing GI Hyperlipidemia 54283386 E78.5 stable Anxiety 41188994 F41.9 xanax prn Hypertriglyceridemia 302 641858 E78.1 low fat diet Malignant neoplasm of lung 093516126 C34.[address] chest at Dr. Valle Obesity 988208078 E66.9 advised to lose weight, and watch diet Thrombocyt openic disorder 246862760 D69.6 seen oncology Adult heal th examination 639562874 Z00.00 Colonoscop y- 01/28, next in 10 yrs, report in the hospitalPn eumovax- 01/01Prevn ar- 11/01Mammo gram- 3Dexa- 2018- [facility]- 12/21/20 & 01/18/21 Hearing loss 15116828 H9 1.93 mild Osteoarthritis 944240778 M19.90 otc Multiple b enign melanocytic nevi 818590383 D22.9 seeing derm Abdominal aortic aneurysm 120727388 I71.40 small, watch Allergic rhinitis 448574 04 J30.9 otc not helping Gastroesop hageal reflux disease 047748175 K21.9 meds help [id number] Baldev Fry MD [facility] Ortho [place] [address] [place] [address], [place] [address] 05/25/2024 09:51:38 05/25/2024 10:37:44 Pain of right hip joint 2280000477 51951 M25.551 Trochanter ic bursitis of right hip 6393838469 92844 M70.61 [id number] Lester Espinosa MD [facility] [address] [place] [address] 05/27/2024 11:37:52 05/27/2024 12:27:36 Type 2 diabetes mellitus without complication 413546822 E11.9 under good control Essential hypertension 60321265 I10 under control Carotid ar shawna stenosis 69883611 I65.29 getting Doppler Autoimmune hepatitis 408 115738 K75.4 seeing GI Hyperlipidemia 62692871 E78.5 stable Anxiety 24620039 F41.9 xanax prn Hypertriglyceridemia 302 805764 E78.1 low fat diet discussed, info given Malignant neoplasm of lung 138416261 C34.[address] Valle Obesity 062030469 E66.9 advised to lose weight, and watch diet Thrombocyt openic disorder 396092254 D69.6 seeing oncology Hearing loss 31758272 H9 1.93 mild Osteoarthritis 886631258 M19.90 otc Multiple b enign melanocytic nevi 040751033 D22.9 seeing derm Abdominal aortic aneurysm 580764133 I71.40 small, watch Allergic rhinitis 442709 04 J30.9 otc not helping Gastroesop hageal reflux disease 448776580 K21.9 meds help Adult heal th examination 114661963 Z00.00 Colonoscop y- 01/28, next in 10 yrs, report in the hospital _ DUE- seees Dr. Andreia bakerx- 01/01 - DUEPrevnar - 11/01Mammo gram- 3Dexa- 2017- [facility] Vacc- 12/21/20 & 01/18/21 Screening for osteoporosis 171507345 Z13.015 [id number] Baldev Fry MD [facility] [address] [address] 06/29/2024 10:27:19 06/29/2024 11:37:26 Pain of right hip joint 3321516555 19550 M25.551 Trochanter ic bursitis of right hip 8296418171 98727 M70.61 [id number] Ilsa Lincoln NP [facility] [address] [address] 08/19/2024 15:44:00 08/20/2024 13:02:13 Dyspnea on exertion 95497001 R06.09 Lab work todayPFT for baselineAw are to use Albuterol inhaler as needed-ok to use when sob (has)Antoine nue O2 2 L NC-current ly 90% sitting quietly on room airfollow- up in 1 month-soon er for any changes in breathing and increase use of inhaler Patient on oxygen 960193 009 Z99.81 continue O2 at 2 L NCconsider pulmonary rehab in future Primary ma lignant neoplasm of bronchus 27998329 C34.90 seen at [facility] and followed there-did have CT chest on admission- will get old records Ex-smoker 8535195 Z87.89 1 [id number] Ilsa Lincoln NP [facility] [address] 09/21/2024 15:55:38 11/09/2024 11:15:23 Dyspnea on exertion 98936091 R06.09 Lab work today-norm al findingsPF T for baselineAw are to use Albuterol inhaler as needed-ok to use when sob (has)Antoine nue O2 2 L NC with activity-c urrently 90-94% sitting quietly on room air with no distressfo llow-up after PFT 11/02/2024 -sooner for any changes in breathing and increase use of inhaler Chronic ob structive pulmonary disease 98356197 J44.9 Await PFT-will do a 6 minute walk test when she goes for pftMay consider pulmonary rehab in future [id number] Lester Espinosa MD [facility] Internal Med [address] [place] [address] 09/28/2024 11:25:24 09/28/2024 12:25:35 Type 2 diabetes mellitus without complication 974909792 E11.9 under good control, KEEP WATCHING DIET Essential hypertension 26912656 I10 under control Carotid ar shawna stenosis 30346266 I65.29 GETS DOPPLERS AT CARDIOLOGY Autoimmune hepatitis 408 543188 K75.4 seeing GI and stable Hyperlipidemia 16391102 E78.5 stable Anxiety 50731370 F41.9 xanax prn Hypertriglyceridemia 302 889349 E78.1 low fat diet Malignant neoplasm of lung 646554298 C34.[address] Valle Obesity 141765885 E66.9 advised to lose weight, and watch diet Thrombocyt openic disorder 425101633 D69.6 seeing oncology, low but stable Hearing loss 12375800 H9 1.93 mild Osteoarthritis 625878245 M19.90 otc Multiple b enign melanocytic nevi 465334057 D22.9 seeing derm Abdominal aortic aneurysm 863736625 I71.40 small, watch Allergic rhinitis 221204 04 J30.9 otc not helping Gastroesop hageal reflux disease 081629374 K21.9 meds help Adult heal th examination 579397965 Z00.00 Colonoscop y- 01/28, next in 10 yrs, report in the hospital _ DUE- seees Dr. Boswell umovax- 01/01 - DUEPrevnar - 11/01Mammo gram- 06/14/2024 Dexa- 06/14/2024 [facility]- 12/21/20 & 01/18/21 Dyspnea on exertion 6084 5006 R06.09 o2 helps, likely has COPD, getting PFT, then inhaers if needed Peripheral vascular disease 039016323 I73.9 getting stent, mild symptoms Renal artery stenosis 30 3431112 I70.1 s/p stent Administra tion of influenza vaccine 36804069 Z23 [id number] Ilsa Lincoln NP [facility] Pulmonolo gy [address] [address] 10/20/2024 12:19:38 10/21/2024 16:35:21 Moderate chronic obstructive pulmonary disease 710744649 J44.9 Start Symbicort and use discussed- rinse mouth-use as prescribed Use Albuterol inhaler as neededCAT- 39PFT 10/20/2024 : noted moderate COPD-recom mend pulmonary rehabEncou rage to maintain vaccines when dueF/u with PMD for any new labsF/u with me in 3 months-Sym bicort use-will call if needs AlbuterolA mujica to call if any changes in symptoms or increase in use of Albuterol- severe symptoms ER Dependence on supplemental oxygen 5218446763 07 Z99.81 pulmonary rehab order [id number] Lester Espinosa MD [facility] Internal Med [address] [place] [address] 12/10/2024 13:56:12 12/10/2024 14:30:33 Malignant neoplasm of lung 095515324 C34.90 using inhaler from pulmonary, may be causing throat irritation , she has a history of throat irritation from using flonase nasal spray that she says ran down her throat,enc ouraged to rinse and gargle after using inhaler, she has added mono for chronic rhinitiswo uld like her to add her pantoprazo le back in to her daily routing to see if any acid reflux is adding to the throat irritation .will ask her to f/u if not improving. Gastroesop hageal reflux disease 342636591 K21.9 pantoprazo le to see if decreases any throat irritation that might be caused by acid reflux Impacted c erumen of bilateral ears 2065613913 755869 H61.23 will try otc ear wax drops [id number] Marlee Rosario MD [facility] General Surgery [address] [facility] [address] [place] [address] 02/23/2025 14:35:20 02/23/2025 15:02:21 Autoimmune hepatitis 491589848 K75.4 Thrombocyt openic disorder 103571937 D69.6 [id number] Ilsa Lincoln NP [facility] Pulmonolo gy [place] [address] [place] [address] [place] [address] 01/18/2025 15:42:46 01/18/2025 16:45:01 Severe chronic obstructive pulmonary disease 828757064 J44.9 PFT 10/20/24 FEV1 1.10 L (52%), BD 80 mL = 8%, TLC 5.34 L (99%), RV 2.73 L (123%), DLCO 28%, DLCO/VA 55%Change Symbicort to Trelegy-pf t notes severe COPD-O2 sats drop with exertion-a nd has had hoarseness with taking Symbicort- triple therapy would benefit patient at this time-daily dose would hopefully decrease hoarseness She will also use Astepro otc and zyrtec otc to see if this helps dry her up a little-gra nddaughter will let office know if this doesn't help and will consider trial of singulair dailyShe is aware must wear O2 with exertion-s he is having her PAD bilateral assessed-o nce she decides if she will do surgery or not will try to get her into pulmonary rehab since she has not been able to go yet.Use Albuterol inhaler as neededOver night pulse ox-to see if patient needs O2 at night since she is not wearing it all the time at night-she does wake up sob and then puts it onReviewed labs from last year-no eosinophil s, no severe allergies, Alpha 1 negative and CXR negativeDu e to hx of smoking will consider Lung scan-does not want to do right nowEncoura ge to maintain vaccines when dueF/u with PMD for any new labsF/u with me in 4 months -will call if needs Albuterol (has some at home)Aware to call if any changes in symptoms or increase in use of Albuterol- severe symptoms ER [id number] Lester Espinosa MD [facility] Internal Med [address] [place] [address] 03/15/2025 10:48:34 03/15/2025 11:31:57 Type 2 diabetes mellitus without complication 871102547 E11.9 under good control, Essential hypertension 81852796 I10 under control Carotid ar shawna stenosis 28467072 I65.29 GETS DOPPLERS AT CARDIOLOGY Autoimmune hepatitis 408 918086 K75.4 seeing GI and stable Hyperlipidemia 98338222 E78.5 stable Anxiety 41124025 F41.9 xanax prn Hypertriglyceridemia 302 867686 E78.1 advised to follow low fat diet Malignant neoplasm of lung 671625737 C34.[address] Valle Obesity 861942513 E66.9 advised to lose weight, and watch diet Thrombocyt openic disorder 868222282 D69.6 seeing oncology, low but stable Hearing loss 25184558 H9 1.93 mild Osteoarthritis 860456613 M19.90 otc Multiple b enign melanocytic nevi 916458966 D22.9 seeing derm Abdominal aortic aneurysm 238013443 I71.40 small, watch Allergic rhinitis 780755 04 J30.9 otc not helping Gastroesop hageal reflux disease 521657394 K21.9 meds help Adult heal th examination 815746874 Z00.00 Colonoscop y- 01/28, next in 10 yrs, report in the hospital _ DUE- seees Dr. Boswell umovax- 01/01 - DUEPrevnar - 11/01Mammo gram- 06/14/2024 Dexa- 06/14/2024 [facility]- 12/21/20 & 01/18/21 Dyspnea on exertion 6084 5006 R06.09 o2 helps, Peripheral vascular disease 775201002 I73.9 mild symptoms Renal artery stenosis 30 1494831 I70.1 s/p stent Steatotic liver disease 572651820 K76.0 advised to watch diet Health Concerns Section Related Observation LastModified by Organization Detai ls LastModified Time None Recorded Concern Status LastModified by Organization Details LastModified Time None Recorded Advance Directives Directive Y: Payers Encounter Date Sequence Insurance Name Policy Number Policy Mackey Covered Member ID Mackey Member ID Guarantor Name 10/20/2024 1 [place] Tiffanie Del Cid [id number] Tiffanie Del Cid 10/20/2024 2 [place] [id number] Tiffanie Del Cid [id number] Tiffanie Del Cid 12/10/2024 1 [place] Tiffanie Del Cid [id number] Tiffanie Del Cid 12/10/2024 2 [place] [id number] Tiffanie Del Cid [id number] Tiffanie Del Cid 01/18/2025 1 [place] Tiffanie Del Cid [id number] Tiffanie Del Cid 01/18/2025 2 [place] [id number] Tiffanie Del Cid [id number] Tiffanie Del Cid 02/23/2025 1 [place] Tiffanie Del Cid [id number] Tiffanie Del Cid 02/23/2025 2 [place] [id number] Tiffanie Del Cid [id number] Tiffanie Del Cid 03/15/2025 1 [place] Tiffanie Del Cid [id number] Tiffanie Del Cid 03/15/2025 2 [place] [id number] Tiffanie Del Cid [id number] Tiffanie Del Cid Notes Date Note Type Note Provider Name and Address Organization Details Recorded Time 4 text/html COPDReported bypatient.Severity:mode rate; uses nebulizer/inhaler an average of 4 times/week lately Onset/Timing:chronic: slowly much worse Modifying Factors:relieved with oxygen; worse with exertion Associated Symptoms:no snoring; no arousals from sleep; no dyspnea; no decrease in exercise capacity; no fatigue; no coughing up sputum; no cough; no fever; no weight loss; no depression;excessive daytime sleepiness;coughing up sputum yellow;wheezing at restNotes:admission 08/13-respiratory distress after viral illnesssmoker for 37 years 2xhlCAZ-14-ywbbu like she is going backwardscurrently on O2 2L NC-sats drop into 80's without during walking-can sit without having it oncontinues with a runny nose-weather makes breathing hardernever had dx of COPD until admission-she has had lobectomy with radiation from Dr. Janes SNELL daughter with patient today-here for follow-up for PFT today Ilsa Lincoln NP [address] [facility], [facility] [address], [place], [address], [place] [employer] 10/20/2024 13:25:07 5 text/html Pt is here today for a raspy voice onset 1 month long. Her boat outfitter advised her to f/u with primary. No other symptoms. Sally Ward NP [address] [facility], [facility] [address], [place], [address], [employer] 12/10/2024 14:30:21 5 text/html COPDReported bypatient.Severity:mode rate; admitted to hospital 1 times/year; she notes with weather change past few days has needed inhaler Onset/Timing:chronic: has not changed Context:cigarette smoking Modifying Factors:relieved with rest; relieved with oxygen; worse with exertion Associated Symptoms:no snoring; no excessive daytime sleepiness; no arousals from sleep; no decrease in exercise capacity; no coughing up sputum; no cough; no fever; no wheezing; no weight loss; no depression;dyspnea exertional;decrease in exercise capacity;fatigueNotes:callum nunes has had continued throat hoarseness since starting symbicort-she has seen her primary and was restarted on her PPI with little improvement-she notes a lot of post nasal drip-she does note her breathing is better but still feels she can't get a good breath in or outO2 sat walking approximately 200 feet patient's O2 sat dropped to 84% on room air-on O2 3 L she is 97% daughter with patient today Ilsa Lincoln NP [address] [facility], [place] [address], [place], [address], [employer] 01/19/2025 10:02:10 5 text/html TIFFANIE WAS SEEN IN THE OFFICE TODAY FOR A F/U . PT HAS AIH. PT HAS THROMBOCYTOPENIA. PT HAS COPD WITH SOB AND IS O2 DEPENDENT . RECENT LABS : HB 15, HCT 44.5, PLTs 144 , MCV 100.7. PT DENIES PEDAL EDEMA/ INCREASING ABD GIRTH . Marlee Rosario MD [address] [facility], [facility] [address], [place], [address], [employer] 02/23/2025 15:15:42 5 text/html Here for routine follow up, compliant to meds. Wants to talk about labs from Dr. Vilchis (in chart).Her debarker operator told her she had cirrhosis , worried about platletsdidn't do testing she said she went off of her previous labs. pt is not fasting MEDICARE Had a cardiac cath and Stent placement in kidney 08/2024 SOME HEARING PROBLEMSAuto immune hepatitis,- Seeing Dr. Rosario , no symptomsMeds- Azathioprine 50 mg qdPVD s/p stents dr vilchis 03/03, some symptoms ,CAD s/p CABG 2008, no symptoms, on Plavix Dr vilchis Abn mammogram and a lump on the left, US showed benign, nl mammogram 06/09DM- has not been doing her accu checks daily,A1c 6. in 08/13/24 controlling diet,Last eye exam- 524Hyperlipidemia and hypertriglyceridemia- meds and diet, Trig are high-Meds- Atorvastatin 10 mg qdCarotid artery stenosis s/p surgery in the past on the right, gets US at cardiology every year, on Plavix ,Meds- Clopidogrel 75 mg qd- Dr. Alva cancer- s/p left lung surgery and right lung surgery in the past, s/p chemo and RT, gets CT scan from CV surgeon, gets sob some on walking and using o2, and uses alb inhaler prn Obesity- advised to lose, gained 1 lbAnxiety- takes xanax, gets from Dr. Trent- alprazolam 0.5 mg qd prnHTN- under controlMeds- Metoprolol 25 mg AAA- 3.7cm, US in 07/09 Hip and back pain- x rays showed arthritis, On Steroids right now, seen Daniel and had injection and feels better Thrombocytopenia- seeing ONCOLOGY, 144 All rhinitis- Meds do not helpMeds- Montelukast 10mg daily GERD- meds helping, takes as neededMeds- Pantoprazole 40mg daily Lester Espinosa MD [address] [facility], [address], [place], [address], [place] [employer] 03/15/2025 11:29:25 OBGyn Episode No OBEpisode recorded.
--- OUTSIDE RECORDS SUMMARY | 2025-03-23 14:42 | XMS_ITS | Clinical Summary ---
Author Organization [facility] Address [address] [place] [address] Care Team Providers Care Fish Net Stringer Name Role Phone Unavailable Primary Care Provider Unavailabl e Source Comments [facility],non-owned Affiliates and Associated Physician Practices is amultiple site organization consisting of ambulatory clinics and hospital sitesin [place], [place], [place] and [place]. This disclosure is being madepursuant to the Care Everywhere program and may not contain all information available regarding this patient. 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 Gender Identity Not on file Sexual Orientation Not on file Plan of Treatment Health Maintenance Due Date Last Done Comments BONE DENSITY TESTING 1950 COLOGUARD (AGES 45-75) - COL ON CA SCREENING 1949 COLON MONITORING 1949 COLONOSCOPY - COLON CA SCREENING 1949 CT COLONOGRAPHY - COLON CA SCREENING 1949 Colorectal Cancer Screening 1949 FIT - COLON CA SCREENING 1949 FLEX SIG - COLON CA SCREENING 1949 LIPID TESTING 1949 MAMMOGRAM 1949 HEPATITIS C SCREENING 07/09/1967 DTAP/TDAP/TD VACCINES (1 - Tdap) 1968 PNEUMOCOCCAL VACCINE 50+ (1 of 1 - PCV) 1999 ZOSTER VACCINE (1 of 2) 1999 Respiratory Syncytial Virus (RSV) Vaccine Pt: or over 60 yrs (1 - 1-dose 75+ series) 2024 COVID-19 VACCINE (2023-2 5 season) 2024 DEPRESSION SCREENING 11/17/2024 INFLUENZA VACCINE (Season Ended) 2025 HEPATITIS B VACCINE Aged Out No longe r eligible based on patient's age to complete this topic HIB VACCINE Aged Out No longer eligi ble based on patient's age to complete this topic HPV VACCINE Aged Out No longer eligi ble based on patient's age to complete this topic MENINGOCOCCAL (Group B) VACC INE SHARED DECISION-MAKING Aged Out No longer eligibl e based on patient's age to complete this topic MENINGOCOCCAL GROUPS A/C/Y/W VACCINE Aged Out No longer eligible b ased on patient's age to complete this topic
--- OUTSIDE RECORDS SUMMARY | 2025-03-23 14:42 | XMS_ITS | Clinical Summary ---
Author Organization [facility] Jon Cooley Address [address] [place] [address] Care Team Providers Care Assisted Living Executive Director Name Role Phone Reinaldo Espinosa MD Primary Care Provider [phone] Allergies Active Allergy Reactions Criticality Noted Date Comments Codeine Confusion Low 05/05/2024 Reaction: CONFUSION, , Medications metoprolol tartrate (LOPRESSOR) 100 mg tablet Take 25 mg by mouth 2 times daily. Active atorvastatin (LIPITOR) 10 mg tablet Take 10 mg by mouth daily. 05/03/2022 Active clopidogreL (PLAVIX) 75 mg Tablet Take 75 mg by mouth daily. 05/03/2022 Active cyanocobalamin (VITAMIN B-12) 100 mcg tablet Take 100 mcg by mouth daily. 04/18/2021 Active meclizine (ANTIVERT) 25 mg tablet Take 25 mg by mouth 3 times daily as needed. Active ALPRAZolam (XANAX) 0.5 mg tablet 04/26/2023 Active nitroglycerin (NITROSTAT) 0.4 mg Tablet, Sublingual 04/25/2023 Active azaTHIOprine (IMURAN) 50 mg tablet Take 50 mg by mouth daily. Active diclofenac sodium (VOLTAREN) 75 mg Tablet, Delayed Release (E.C.) TAKE 1 TABLET BY MOUTH TWICE A DAY NEEDED 05/07/2023 Active Active Problems No known active problems Encounters Date Type Department Care Team Description 02/02/2025 External Device Data STL ABSTRACTION Provider, Abstract 01/22/2025 External Device Data STL ABSTRACTION Provider, Abstract 01/21/2025 External Device Data STL ABSTRACTION Provider, Abstract 01/18/2025 External Device Data STL ABSTRACTION Provider, Abstract 01/04/2025 External Device Data STL ABSTRACTION Provider, Abstract from Last 3 Months Family History Relation Name Status Comments Brother Alive Daughter 1 Alive Daughter 2 Alive Father Mother Sister Alive Social History Tobacco Use Types Packs/Day Years Used Date Smoking Tobacco: Former Cigarettes Tobacco Cessation:Counseling Given: Not Answered Alcohol Use Standard Drinks/Week Comments Never 0 (1 standard drink = 0.6 oz pur e alcohol) Comments Unknown Sex and Gender Information Value Date Recorded Sex Assigned at Not on file Legal Sex Female 11:37 AM CDT Gender Identity Not on file Sexual Orientation Not on file Last Filed Vital Signs Vital Sign Reading Time Taken Comments Blood Pressure 129/66 05/05/2024 3:09 PM CDT Pulse 64 05/05/2024 3:09 PM CDT Temperature 36.3 C (97.3 F) 05/05/2024 3:09 PM CDT Respiratory Rate 18 05/05/2024 3:09 PM CDT Oxygen Saturation 93% 05/05/2024 3:09 PM CDT Inhaled Oxygen Concentration - - Weight 91.6 kg (202 lb) 05/05/2024 3:09 PM CDT Height 175.3 cm (5' 9 ) 06/30/2023 1:42 PM CDT Body Mass Index 29.83 06/30/2023 1:42 PM CDT Plan of Treatment Upcoming Encounters Date Type Department Care Team (Late st Contact Info) Description 03/23/2025 3:45 PM CDT Office Visit [facility] Oncology and Hematology - [place] [address] [facility] [address] [place] [address] David Hernandez MD [address] [facility] [address] [place] [address] Health Maintenance Due Date Last Done Comments DTAP/TDAP/TD VACCINES (1 - Tdap) 1968 COLORECTAL SCREENING 1994 Colorectal Cancer Screening 1994 FIT-DNA Q 3 years 1994 FIT/FOBT Q 1 year 1994 Flex Sig/CT Colonography Q 5 years 1994 PNEUMOCOCCAL VACCINE 50+ YEARS (1 of 1 - PCV) 07/13/19 99 ZOSTER VACCINE (1 of 2) 1999 INFLUENZA VACCINE (#1) 2024 RSV VACCINE (60+ or ) (1 - 1-dose 75+ series) 2024 OSTEOPOROSIS SCREENING 06/14/2029 06/14/2024 Insurance MEDICARE PART A AND B [facility] SUPP Care Teams Assisted Living Executive Director Relationship Specialty Start Date End Date Reinaldo Espinosa MD [address] [place] [phone] PCP - General Internal Medicine 06/30/23
[2025-03-23 15:06] LABS: Basophils Absolute Auto 0.1 K/mm3 (0.0-0.1); Basophils Percent Auto 0.9 % (0.2-1.2); Eosinophils Absolute Auto 0.1 K/mm3 (0-0.3); Eosinophils Percent Auto 2.4 % (0-4.4); Hematocrit 43.6 % (37.0-47.0); Hemoglobin 14.6 g/dL (12.0-15.0); Immature Granulocyte Absolute 0.02 K/mm3 (0.00-0.031); Immature Granulocyte Percent A 0.4 % (0-0.5); Lymphocytes Absolute Auto 0.98 K/mm3 (0.9-3.2); Lymphocytes Percent Auto 18.2 % (18.3-44.2); Mean Corpuscular HGB Conc 33.5 g/dl (32-36); Mean Corpuscular Volume 101.4 fl (80-100); Mean Platelet Volume 9.7 fl (7.4-10.4); Monocytes Absolute Auto 0.7 K/mm3 (0.1-0.6); Monocytes Percent Auto 12.8 % (2.6-8.5); Neutrophils Absolute Auto 3.5 K/mm3 (1.3-6.7); Neutrophils Percent Auto 65.3 % (45.5-73.1); Platelet Count Result 128 k/mm3 (150-375); Red Cell Distribution Width 14.5 % (11.5-14.5); White Blood Count 5.4 K/mm3 (4.5-10.0)
[2025-03-23 15:09] LABS: Blood Urea Nitrogen 16 mg/dL (8-26); Carbon Dioxide 28 mmol/L (22-30); Chloride 100 mmol/L (98-109); Estimated Glomerular Filt Rate 54; Glucose 168 mg/dL (70-105); Ionized Calcium (POC) 1.22 mmol/L (1.11-1.31); Potassium 4.1 mmol/L (3.5-4.9); Sodium 139 mmol/L (138-146)
[2025-03-23 16:53] LABS: Alanine Aminotransferase 17 U/L (6-35); Albumin Level 4.2 g/dL (3.5-5.1); Alkaline Phosphatase 84 U/L (38-126); Anion Gap 7 mmol/L (4-12); Aspartate Amino Transferase 44 U/L (14-36); Bilirubin,Total 0.5 mg/dL (0.2-1.3); Blood Urea Nitrogen 17 mg/dL (7-17); Calcium 9.4 mg/dL (8.4-10.2); Carbon Dioxide 31 mmol/L (22-30); Chloride 101 mmol/L (98-107); Estimated Glomerular Filt Rate > 60; Glucose 163 mg/dL (65-110); Potassium 4.1 mmol/L (3.4-5.0); Sodium 139 mmol/L (137-145)
== END 2025-03-23 14:37 | disposition home or self-care (01) ==
LOC: ANHLAB 14:38
PROVIDERS: PCP Internal Medicine; Visit Provider Internal Medicine Hematology & Oncology
DX: K76.0 Fatty (change of) liver, not elsewhere classified (principal); D75.1 Secondary polycythemia
CPT/HCPCS: 36415; 80047; 80053; 85025

== ENCOUNTER 2025-07-11 08:53 | Outpatient (CLI) | payer MEDICARE, BC, SELFPAY ==
--- OUTSIDE RECORDS SUMMARY | 2006-10-23 10:30 | XMS_ITS | Continuity of Care Document ---
Author Organization [facility] Address [address] [place] [address] [place] [address] Phone Care Team Providers Care Production Machinist Name Role Phone Logan Harman Unavailable Unavailable Advance Directives Directive Yes / No Effective Date File Name No Information Encounters Encounter Description Practice Location Reason(s) For Visit Diagnoses Date Provider Providers Copied on Encounter [facility], [address], [place], [place], [id number], [place] tel:[phone] [facility] No Information Kimani Ford. [address] [place], [address], [place]. tel:[phone] Family History Family Member Type Diagnosis Age At Onset No Information Payers Payer name Insurance type Covered republican ID Authoriza tion(s) No Information Social History Type Description Quantity Date Captured Comments Sex Female Smoking Status No Information Chief Complaint And Reason For Visit No Information Reason For Referral Reason For Referral No Information History Of Present Illness Encounter Date Complaint History Of Prese nt Illness No Information Functional Status Date Functional Assessmen t No Information Instructions Date Instruction Additional Infor mation No Information Assessments Type Assessment Date No Information Patient Care Teams Name Effective Dates (start - stop) Status Members No Information
--- NOTE | ~2025-07-11 | US_ITS ---
US abdomen limited INDICATION: Thrombocytopenia PROCEDURE: Realtime right upper abdominal ultrasound. COMPARISON: Ultrasound dated 07/15/2023 FINDINGS: The pancreas is normal without focal mass or pancreatic ductal dilation. There is fatty infiltration of the liver. There is normal directional flow in the portal vein. There are gallstones. Common bile duct measures 5.6 mm. No sonographic Garvin's sign. IMPRESSION: 1: Cholelithiasis. 2: Fatty infiltration of the liver. Reviewed, dictated and finalized at location O.
--- OUTSIDE RECORDS SUMMARY | 2025-07-11 09:21 | XMS_ITS | Clinical Summary ---
Author Organization [facility] Physician Of [facility] [address] [place] [address] Care Team Providers Care Dressing Machine Operator Name Role Phone Reinaldo Espinosa MD Primary Care Provider [phone] Yannick Santiago MD Unavailable Allergies Active Allergy [...] disease) 01/11/2025 Leg pain 12/20/2024 CAD in [place] artery 08/25/2024 CAD (coronary artery disease) 08/24/2024 Abnormal stress test 08/18/2024 Malignant neoplasm of lung 04/11/2015 Lung mass 11/01/2013 Stenosis of carotid artery 01/04/2011 Encounters Date Type Department Care Team Description 06/03/2025 Orders Only [facility] Medicine Surgery [address] [phone] Fuad Marrero MD Malignant neoplasm of lung, unspecified laterality, unspecified part of lung (HCC) (Primary Dx) from Last 3 Months Surgical History Surgery Date Site/Laterality Comments CORONARY ARTERY BYPASS GRAFT 11/17/2008 - 11/16/2009 x3 INSERT / REPLACE / REMOVE PACEMAKER 11/17/2008 - 11/16/2009 LUNG LOBECTOMY Bilateral 1999 (right), 2008 (left) - lung cancer HYSTERECTOMY COLONOSCOPY BREAST SURGERY Right fatty tumor CAROTID ENDARTERECTOMY CARDIAC CATHETERIZATION 01/11/2025 Right Procedure: ANGIOGRAPHY - BILATERAL EXTREMITY S&I [id number]; Surgeon: Yannick Santiago MD; Location: CARDIAC MUTUAL 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 ANALYST; Service: Cardiovascular; Laterality: Right; Medical History Medical History Date Comments Cancer (HCC) Lung Motion sickness Hypertension Lung disease COPD (chronic obstructive pulmonary disease) 07/2024 GERD (gastroesophageal reflux disease) Infectious viral [...] on file Legal Sex Female 1:58 AM MARINE MACHINIST Gender Identity Not on file Sexual Orientation Not on file Obstetrics History Last Filed Vital Signs Vital Sign Reading Time Taken Comments Blood Pressure 149/93 01/12/2025 8:29 AM MARINE MACHINIST Pulse 73 01/12/2025 8:29 AM MARINE MACHINIST Temperature 37.2 C (99 F) 01/12/2025 8:29 AM MARINE MACHINIST Respiratory Rate 19 01/12/2025 8:29 AM MARINE MACHINIST Oxygen Saturation 90% 01/12/2025 8:29 AM MARINE MACHINIST Inhaled Oxygen Concentration - - Weight 93.9 kg (207 lb 0.2 oz) 01/12/2025 5:19 A M MARINE MACHINIST Height 175.3 cm (5' 9) 01/11/2025 8:19 AM MARINE MACHINIST Body Mass Index 30.57 01/11/2025 8:19 AM MARINE MACHINIST Plan of Treatment Health Maintenance Due Date Last Done Comments Colon Cancer Screening-Colonoscopy 1949 Depression Screening 1949 Hepatitis C Screening 1949 Osteoporosis Screening-Bone Density Scan 1949 Hepatitis B Screening 1967 Zoster Vaccine (1 of 2) 1968 Well Visit 65+ 2014 Influenza Vaccine (#1) 2025 0, 09/30/2019, 09/07/2018, Additional history exists Fall Risk Assessment 01/12/2026 01/12/2025 DTaP/Tdap/Td Vaccine (2 - Td or Tdap) 06/10/2026 06/10/2016 Pneumococcal vaccine 65+ Completed 11/05/2016, 12/18 Medical Devices Implanted Type Area Manager Membership Device Identifier Shelf Expiration Date Model / Serial / Lot [employer] St[employer] El[employer] S [employer] Us Mr [id number] - [id number] Implanted:Qty: 1 on 08/24/2024 by Yannick Santiago MD at [facility] [employer] 06/02/2025 [id number] / / [id number] Insurance MEDICARE [facility] OOS MEDICARE [employer] Advance Directives For more information, please contact: [phone] * Full Code (Latest Code Status on File) Date Activated Date Inactivated Comments 01/11/2025 1:27 PM 01/12/2025 6:00 PM * Full Code Date Activated Date Inactivated Comments 08/24/2024 2:31 PM 08/25/2024 7:19 PM Care Teams Dressing Machine Operator Relationship Specialty Start Date End Date Reinaldo Espinosa MD PCP - General 03/25/17 [place] [id number] [address] Consulting Physician Cardiovascular Disease 08/25/24
--- OUTSIDE RECORDS SUMMARY | 2025-07-11 09:21 | XMS_ITS | Clinical Summary ---
Author Organization [facility] Address [address] [place] [address] Care Team Providers Care Club Former Name Role Phone Unavailable Primary Care Provider Unavailabl e Source Comments [facility],non-owned Affiliates and Associated Physician Practices is amultiple site organization consisting of ambulatory clinics and hospital sitesin [place], [place], [place] and [place]. This disclosure is being madepursuant to the Care Everywhere program and may not contain all information available regarding this patient. 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
--- OUTSIDE RECORDS SUMMARY | 2025-07-11 09:21 | XMS_ITS ---
Author Organization [facility] Physician Of [facility] [address] [place] [phone] Care Team Providers Care Hotel Dining Room Cashier Name Role Phone Reinaldo Espinosa MD Primary Care Provider [phone] Yannick Santiago MD Unavailable Active Problems Problem Noted Date Diagnosed Date PAD (peripheral artery disease) 01/11/2025 Leg pain 12/20/2024 CAD in [place] artery 08/25/2024 CAD (coronary artery disease) 08/24/2024 Abnormal stress test 08/18/2024 Malignant neoplasm of lung 04/11/2015 Lung mass 11/01/2013 Stenosis of carotid artery 01/04/2011 Current Treatment and Therapy Plans No current plan information found. Past Treatment and Therapy Plans No past plan information found. Lifetime Dose Tracking * Chemical Lifetime Dose Automatic Entry Manual Entr y Fluoro Time 33.4 minutes 0 minutes 33.4 minutes Air kerma at the reference point (Ka,r) 3,417 mGy 0 mGy 3,417 mGy
== END 2025-07-11 08:54 | disposition home or self-care (01) ==
LOC: ANHIMG 08:56
PROVIDERS: PCP Internal Medicine; Visit Provider Nurse Practitioner
DX: K75.4 Autoimmune hepatitis (principal); Z51.81 Encounter for therapeutic drug level monitoring; Z79.624 Long term (current) use of inhibitors of nucleotide synthesis; D69.6 Thrombocytopenia, unspecified; K80.20 Calculus of gallbladder without cholecystitis without obstruction; K76.0 Fatty (change of) liver, not elsewhere classified
CPT/HCPCS: 76705